=== PATIENT | male | born 1955 | race Caucasian/White ===

== ENCOUNTER → 2017-11-12 07:08 | Outpatient (CLI) | payer BC, SELFPAY ==
[2017-11-12 07:23] LABS: Basophils # 0.1 K/mm3 (0-0.2); Basophils % 1.2 % (0.1-2.0); Eosinophils # 0.3 K/mm3 (0.0-0.4); Eosinophils % 4.3 % (0.1-12.0); Hematocrit 43.6 % (42.0-52.0); Hemoglobin 14.4 g/dL (14.1-18.0); Lymphocytes # 1.6 K/mm3 (0.7-4.5); Lymphocytes % 27.4 K/mm3 (10-50); Mean Corpuscular HGB Conc 33.1 g/dL (31.8-35.4); Mean Corpuscular Hemoglobin 26.6 pg (27.0-31.2); Mean Corpuscular Volume 80.2 fl (80-94); Mean Platelet Volume 7.2 fl (7.4-10.4); Monocytes # 0.5 K/mm3 (0.1-1.0); Neutrophils # 3.4 K/mm3 (1.8-7.8); Neutrophils % 58.1 % (37.0-80.0); Platelet Count 287 K/mm3 (142-424); Red Blood Count 5.44 M/mm3 (4.60-6.20); Red Cell Distribution Width 15.4 % (11.5-17.5); White Blood Count 5.9 K/mm3 (4.8-10.8)
[2017-11-12 08:18] LABS: Hemoglobin A1C 6.6 % (0.0-7.0)
[2017-11-12 10:07] LABS: Alanine Aminotransferase 33 U/L (12-78); Albumin Level 3.9 gm/dL (3.4-5.0); Albumin/Globulin Ratio 1.2 (1.1-1.8); Alkaline Phosphatase 52 U/L (46-116); Anion Gap 17.4 mEq/L (5-15); Aspartate Amino Transferase 20 U/L (15-37); Bilirubin,Total 0.4 mg/dL (0.2-1.0); Blood Urea Nitrogen 20 mg/dL (7-18); Calcium 9.3 mg/dL (8.5-10.1); Carbon Dioxide 26 mmol/L (21.0-32.0); Chloride 104 mmol/L (98-107); Chol/HDL Ratio 2.9 (1-3.5); Cholesterol 134 mg/dL (140-200); Creatinine,Serum 0.94 mg/dL (0.70-1.30); Estimated Glomerular Filt Rate 82 ml/min (>60); GFR (African American) 99 ML/MIN (>60); Globulin 3.3 gm/dl (1.3-3.2); Glucose 126 mg/dL (74-106); HDL Cholesterol 46 mg/dL (27-67); LDL Cholesterol 45 mg/dL (0-130); Potassium 4.4 mmoL/L (3.5-5.1); Sodium 143 mmol/L (136-145); Total Protein,Serum 7.2 gm/dL (6.4-8.2); Triglycerides 213 mg/dL (30-200); VLDL Cholesterol 43 mg/dL (0-40); Valproic Acid, (Depakene) 40.5 ug/mL (50-100)
== END ==
PROVIDERS: PCP Internal Medicine Adolescent Medicine; Visit Provider Internal Medicine Adolescent Medicine
DX: I25.10 Atherosclerotic heart disease of native coronary artery without angina pectoris (principal); E11.9 Type 2 diabetes mellitus without complications; E78.5 Hyperlipidemia, unspecified; R56.9 Unspecified convulsions
CPT/HCPCS: 36415; 80053; 80061; 80164; 83036; 85025

== ENCOUNTER → 2018-11-21 07:01 | Outpatient (CLI) | payer BC, SELFPAY ==
[2018-11-21 08:02] LABS: Basophils # 0.1 K/mm3 (0-0.2); Basophils % 1.8 % (0.1-2.0); Eosinophils # 0.2 K/mm3 (0.0-0.4); Eosinophils % 3.9 % (0.1-12.0); Hematocrit 44.8 % (42.0-52.0); Hemoglobin 14.5 g/dL (14.1-18.0); Lymphocytes % 34.1 % (10-50); Mean Corpuscular HGB Conc 32.3 g/dL (31.8-35.4); Mean Corpuscular Hemoglobin 26.3 pg (27.0-31.2); Mean Corpuscular Volume 81.5 fl (80-94); Mean Platelet Volume 6.3 fl (7.4-10.4); Monocytes # 0.4 K/mm3 (0.1-1.0); Monocytes % 7.2 % (1.7-9.3); Neutrophils # 3.1 K/mm3 (1.8-7.8); Platelet Count 259 K/mm3 (142-424); Red Blood Count 5.49 M/mm3 (4.60-6.20); Red Cell Distribution Width 14.7 % (11.5-17.5); White Blood Count 5.9 K/mm3 (4.8-10.8)
[2018-11-21 08:13] LABS: Hemoglobin A1C 6.8 % (0.0-7.0)
[2018-11-21 08:24] LABS: Alanine Aminotransferase 26 U/L (12-78); Albumin Level 3.5 gm/dL (3.4-5.0); Albumin/Globulin Ratio 1.1 (1.1-1.8); Alkaline Phosphatase 55 U/L (46-116); Aspartate Amino Transferase 15 U/L (15-37); Bilirubin,Total 0.4 mg/dL (0.2-1.0); Blood Urea Nitrogen 16 mg/dL (7-18); Calcium 9.3 mg/dL (8.5-10.1); Carbon Dioxide 30 mmol/L (21.0-32.0); Chloride 102 mmol/L (98-107); Creatinine,Serum 1.05 mg/dL (0.70-1.30); Estimated Glomerular Filt Rate 72 ml/min (>60); GFR (African American) 87 ML/MIN (>60); Globulin 3.1 gm/dl (1.3-3.2); Glucose 125 mg/dL (74-106); Sodium 141 mmol/L (136-145); Total Protein,Serum 6.6 gm/dL (6.4-8.2); Valproic Acid, (Depakene) 36.6 ug/mL (50-100)
[2018-11-22 15:24] LABS: PSA, Free 0.18 ng/mL; Prostate Specific Ag 0.5 ng/mL (0.0-4.0)
== END ==
PROVIDERS: Visit Provider Internal Medicine Adolescent Medicine
DX: E11.9 Type 2 diabetes mellitus without complications (principal); E78.5 Hyperlipidemia, unspecified; R56.9 Unspecified convulsions; R33.9 Retention of urine, unspecified
CPT/HCPCS: 36415; 80053; 80164; 83036; 84153; 84154; 85025

== ENCOUNTER → 2018-12-07 06:26 | Outpatient (CLI) | payer BC, SELFPAY ==
--- NOTE | 2018-12-07 06:27 | CA_ITS ---
PROCEDURE: 2-D M-mode and color Doppler study INDICATIONS FOR THE TEST: Chest pain + COPD Heart Murmur Tobacco Smokingex Palpitations Fatigue Syncope Edema Hypertension+Diabetes Mellitus+ Rheumatic Fever SOB GARCIA Obesity Hyperlipidemia+ Family History HD Additional History cad,stents PATIENT INFORMATION HEIGHT: 72 WEIGHT:270 GENDER: Male B/P:134/92 2-D/M-MODE INTERPRETATION: 2-D MEASUREMENTS OBSERVED VALUES IN CMS Right Ventricular Dimension (RVDd) luis Interventricular Septum (Thickness)(IVsd) 0.8 Left Ventricular Internal Dimensions(LVIDd) 4.8 Left Ventricular Posterior Wall (Thickness)(LVPWd) 0.5 Aortic Root 2.9 Aortic Cusp Separation 2.1 Left Atrial Dimensions (LAD) 4.6 2D 1. Left atrium is mildly enlarged, left ventricle is normal size, concentric left ventricular hypertrophy, visually estimated ejection fraction 55% with no regional wall motion abnormality. 2. The right atrium and right ventricle are mildly enlarged with normal contractility. 3. The aortic valve is minimally thickened and fibrosed. 4. The mitral and tricuspid valve leaflets are minimally thickened. 5. The pulmonic valve is poorly visualized. 6. No significant pericardial effusion noted. DOPPLER INTERROGATION: Doppler interrogation of the aortic, mitral and tricuspid valvular presence of mild mitral and tricuspid regurgitation, tricuspid regurgitation jet velocity is inadequate for calculation of the right ventricular systolic pressure, grade 1 diastolic dysfunction seen without tissue Doppler evidence of raised left atrial pressure. CONCLUSION: 1. Mildly enlarged left atrium, normal left ventricular size mild hypertrophy, visually estimated ejection fraction 55% with no regional wall motion abnormality, grade 1 diastolic dysfunction seen without tissue Doppler evidence of raised left atrial pressure. 2. Mildly enlarged right atrium and right ventricle, contractility of the right ventricle being normal. 3. Mild mitral and tricuspid regurgitation 4. No significant pericardial effusion noted.
--- NOTE | 2018-12-07 06:27 | NM_ITS ---
History and Indications: Coronary artery disease, hypertension, diabetes, hyperlipidemia, family history, chest pain, shortness of breath and fatigue Procedure: Patient exercised on Suhas protocol 6 metastases, resting heart rate was 65 bpm resting blood pressure 117/78, with exercise maximum heart rate achieved was 1 25 bpm which is equal to 79% of the maximum predicted heart rate and a blood pressure was 164/80. Test was started due to shortness of breath and fatigue patient denied any complained of chest pain. Patient has adequate exercise capacity achieved 7mets of workload on treadmill, the blood pressure response to exercise was adequate. Electrocardiogram: Resting electrocardiogram showed sinus rhythm, with exercise there is less than 1.[address] segment depression noted from the baseline EKG. The EKG portion of the exercise Myoview is nondiagnostic as patient did not achieve the target heart rate. Cardiac stress and resting SPECT images: Cardiac stress and resting SPECT images were obtained using technetium 99 Myoview 32.6 mCi at stress and 10.4 mCi at rest. Gated SPECT further analysis of segmental wall motion and calculation of the ejection fraction also done. Cardiac stress and resting SPECT images show a fixed defect involving the inferobasal wall with reduced contractility in the gated SPECT is likely secondary to nontransmural scarring, no reversible ischemia seen. Computer derived ejection fraction is 58% with inferobasal wall moderate hypokinesis. Right ventricle is normal size and contractility. Conclusion: 1. The EKG portion of the exercise Myoview is nondiagnostic as patient did not achieve the target heart rate, patient has adequate exercise capacity achieved 7mets of workload on treadmill, the blood pressure response to exercise was adequate, there was no exercise-induced chest discomfort. 2. Scintigraphic evidence of nontransmural myocardial scarring involving the inferobasal wall without significant maximus-infarct ischemia, computer derived ejection fraction is 58% with segmental wall motion abnormality described above, right ventricle is normal size and contractility. 3. Abnormal exercise Myoview study.
== END ==
PROVIDERS: PCP Internal Medicine Adolescent Medicine; Visit Provider Internal Medicine
DX: I25.118 Atherosclerotic heart disease of native coronary artery with other forms of angina pectoris (principal); E78.2 Mixed hyperlipidemia; I10 Essential (primary) hypertension; R68.84 Jaw pain; E78.5 Hyperlipidemia, unspecified
CPT/HCPCS: 78452; 93017; 93306; A9502

== ENCOUNTER → 2019-03-08 07:02 | Outpatient (CLI) | payer BC, SELFPAY ==
[2019-03-08 07:44] LABS: Basophils # 0.1 K/mm3 (0-0.2); Basophils % 1.4 % (0.1-2.0); Eosinophils # 0.2 K/mm3 (0.0-0.4); Eosinophils % 4.8 % (0.1-12.0); Hematocrit 40.7 % (42.0-52.0); Hemoglobin 13.9 g/dL (14.1-18.0); Lymphocytes # 1.8 K/mm3 (0.7-4.5); Lymphocytes % 37.5 % (10-50); Mean Corpuscular HGB Conc 34.1 g/dL (31.8-35.4); Mean Corpuscular Volume 79.2 fl (80-94); Mean Platelet Volume 6.6 fl (7.4-10.4); Monocytes # 0.4 K/mm3 (0.1-1.0); Monocytes % 8.6 % (1.7-9.3); Neutrophils # 2.3 K/mm3 (1.8-7.8); Neutrophils % 47.6 % (37.0-80.0); Platelet Count 271 K/mm3 (142-424); Red Blood Count 5.13 M/mm3 (4.60-6.20); Red Cell Distribution Width 15.1 % (11.5-17.5); White Blood Count 4.8 K/mm3 (4.8-10.8)
[2019-03-08 11:07] LABS: Alanine Aminotransferase 26 U/L (12-78); Albumin Level 3.8 gm/dL (3.4-5.0); Albumin/Globulin Ratio 1.3 (1.1-1.8); Alkaline Phosphatase 43 U/L (46-116); Anion Gap 14.2 mEq/L (5-15); Aspartate Amino Transferase 17 U/L (15-37); Bilirubin,Total 0.6 mg/dL (0.2-1.0); Blood Urea Nitrogen 17 mg/dL (7-18); Calcium 9.3 mg/dL (8.5-10.1); Carbon Dioxide 26 mmol/L (21.0-32.0); Chloride 100 mmol/L (98-107); Chol/HDL Ratio 2.3 (1-3.5); Cholesterol 99 mg/dL (140-200); Estimated Glomerular Filt Rate 76 ml/min (>60); Free Thyroxine Index 1.7 ug/dL (5.93-13.13); GFR (African American) 92 ML/MIN (>60); Globulin 2.9 gm/dl (1.3-3.2); Glucose 93 mg/dL (74-106); HDL Cholesterol 43 mg/dL (27-67); LDL Cholesterol 29 mg/dL (0-130); Magnesium 1.8 mg/dL (1.4-2.2); Potassium 4.2 mmoL/L (3.5-5.1); Sodium 136 mmol/L (136-145); T4 (Thyroxine) 4.9 ug/dl (4.7-13.3); Thyroid Stimulating Hormone 1.42 uIU/ml (0.358-3.740); Total Protein,Serum 6.7 gm/dL (6.4-8.2); Triglycerides 133 mg/dL (30-200); Triiodothryronine (T3) Uptake 35 % (31-39); VLDL Cholesterol 27 mg/dL (0-40); Valproic Acid, (Depakene) 66.3 ug/mL (50-100)
[2019-03-09 20:50] LABS: Vitamin B12 975 pg/mL (232-1245); Vitamin D 25 Hydroxy 58.8 ng/mL (30.0-100.0)
== END ==
PROVIDERS: Visit Provider Internal Medicine Adolescent Medicine
DX: I25.10 Atherosclerotic heart disease of native coronary artery without angina pectoris (principal); E78.5 Hyperlipidemia, unspecified; R56.9 Unspecified convulsions; G60.9 Hereditary and idiopathic neuropathy, unspecified; G47.62 Sleep related leg cramps
CPT/HCPCS: 36415; 80053; 80061; 80164; 82607; 82652; 83735; 84436; 84443; 84479; 85025

== ENCOUNTER → 2019-05-08 14:51 | Outpatient (CLI) | payer BC, SELFPAY ==
[2019-05-08 15:16] LABS: Basophils # 0.1 K/mm3 (0-0.2); Eosinophils # 0.1 K/mm3 (0.0-0.4); Eosinophils % 2.3 % (0.1-12.0); Hematocrit 41.1 % (42.0-52.0); Hemoglobin 13.4 g/dL (14.1-18.0); Lymphocytes # 1.9 K/mm3 (0.7-4.5); Mean Corpuscular HGB Conc 32.7 g/dL (31.8-35.4); Mean Corpuscular Hemoglobin 27.7 pg (27.0-31.2); Mean Corpuscular Volume 84.6 fl (80-94); Mean Platelet Volume 6.8 fl (7.4-10.4); Monocytes # 0.4 K/mm3 (0.1-1.0); Monocytes % 7.4 % (1.7-9.3); Neutrophils # 3.4 K/mm3 (1.8-7.8); Neutrophils % 57.3 % (37.0-80.0); Platelet Count 266 K/mm3 (142-424); Red Blood Count 4.86 M/mm3 (4.60-6.20); Red Cell Distribution Width 14.6 % (11.5-17.5)
[2019-05-08 17:59] LABS: Uric Acid 6.9 mg/dL (2.6-7.2)
[2019-05-08 20:21] LABS: Erythrocyte Sedimentation Rate 4 mm/hr (0-20)
== END ==
PROVIDERS: Visit Provider Internal Medicine Adolescent Medicine
DX: R89.9 Unspecified abnormal finding in specimens from other organs, systems and tissues (principal)
CPT/HCPCS: 36415; 84550; 85025; 85651

== ENCOUNTER → 2019-06-29 13:03 | Outpatient (CLI) | payer BC, SELFPAY ==
--- NOTE | 2019-06-29 | XR_ITS ---
PROCEDURE: XR KNEE RT 3V CLINICAL INDICATION: Medial knee pain COMPARISON: No exams were available for comparison FINDINGS: Moderate osteoarthritic changes are present at the medial compartment and patellofemoral joint. No acute fracture or dislocation. IMPRESSION: Osteoarthritis Dictated by: Mitesh Castillo MD 06/29/2019 16:46 Electronically signed by Mitesh Castillo MD in [place] 06/29/2019 16:46
--- NOTE | 2019-06-29 | XR_ITS ---
PROCEDURE: XR KNEE LT 3V CLINICAL INDICATION: Follow-up knee replacement COMPARISON: No exams were available for comparison FINDINGS: No previous studies are available for comparison. There has been prior left hubert arthroplasty of the medial compartment with good alignment of the prosthesis. There are mild osteoarthritic changes of the patellofemoral joint. IMPRESSION: Status post medial hemiarthroplasty on the left Dictated by: Mitesh Castillo MD 06/29/2019 16:43 Electronically signed by Mitesh Castillo MD in [place] 06/29/2019 16:43
== END ==
PROVIDERS: PCP Internal Medicine Adolescent Medicine; Visit Provider Internal Medicine Adolescent Medicine
DX: M17.11 Unilateral primary osteoarthritis, right knee (principal); M17.12 Unilateral primary osteoarthritis, left knee
CPT/HCPCS: 73562

== ENCOUNTER → 2019-07-17 15:16 | Outpatient (CLI) | payer BC, SELFPAY ==
[2019-07-17 15:20] LABS: Microscopic, Urine URINE MICROSCOPIC (MICROSCOPIC)
[2019-07-17 15:33] LABS: Appearance,Urine CLEAR (Clear); Basophils # 0.1 K/mm3 (0-0.2); Basophils % 1.3 % (0.1-2.0); Bilirubin,Urine Negative (Negative); Blood, Urine Negative (Negative); Color,Urine YELLOW (Yellow); Eosinophils # 0.3 K/mm3 (0.0-0.4); Eosinophils % 3.4 % (0.1-12.0); Glucose,Urine (UA) Negative (Negative); Hematocrit 44.3 % (42.0-52.0); Hemoglobin 13.8 g/dL (14.1-18.0); Ketones,Urine Negative (Negative); Leukocyte Esterase,Urine Negative (Negative); Lymphocytes % 27.2 % (10-50); Mean Corpuscular Hemoglobin 26.2 pg (27.0-31.2); Mean Corpuscular Volume 84.6 fl (80-94); Mean Platelet Volume 6.9 fl (7.4-10.4); Monocytes # 0.6 K/mm3 (0.1-1.0); Monocytes % 7.9 % (1.7-9.3); Neutrophils # 4.4 K/mm3 (1.8-7.8); Neutrophils % 60.1 % (37.0-80.0); Nitrate,Urine Negative (Negative); PH,Urine 6.5 (5.0-8.5); Platelet Count 317 K/mm3 (142-424); Protein,Urine Negative (Negative); Red Blood Count 5.24 M/mm3 (4.60-6.20); Red Cell Distribution Width 15.4 % (11.5-17.5); Urobilinogen,Urine 0.2 EU/dl (0.2); White Blood Count 7.3 K/mm3 (4.8-10.8)
[2019-07-17 15:40] LABS: Activated Partial Thrombo Time 24.5 seconds (23.6-34.0); INR 1.06 (0.9-1.1)
[2019-07-17 16:03] LABS: Bacteria,Urine Trace /lpf; RBC,Urine Occasional #/hpf (0-3)
[2019-07-17 16:27] LABS: Hemoglobin A1C 6.1 % (0.0-7.0)
[2019-07-17 18:12] LABS: Alanine Aminotransferase 15 U/L (12-78); Albumin Level 3.8 gm/dL (3.4-5.0); Albumin/Globulin Ratio 1.3 (1.1-1.8); Alkaline Phosphatase 44 U/L (46-116); Aspartate Amino Transferase 10 U/L (15-37); Bilirubin,Total 0.4 mg/dL (0.2-1.0); Blood Urea Nitrogen 15 mg/dL (7-18); Calcium 9.2 mg/dL (8.5-10.1); Carbon Dioxide 29 mmol/L (21.0-32.0); Chloride 97 mmol/L (98-107); Creatinine,Serum 0.81 mg/dL (0.70-1.30); Estimated Glomerular Filt Rate 97 ml/min (>60); GFR (African American) 117 ML/MIN (>60); Glucose 100 mg/dL (74-106); Sodium 135 mmol/L (136-145); Total Protein,Serum 6.8 gm/dL (6.4-8.2)
[2019-07-19 17:10] LABS: Prealbumin 33 mg/dL (10-36)
== END ==
PROVIDERS: Visit Provider Internal Medicine Adolescent Medicine
DX: E11.9 Type 2 diabetes mellitus without complications (principal); Z79.84 Long term (current) use of oral hypoglycemic drugs
CPT/HCPCS: 36415; 80053; 81001; 83036; 84134; 85025; 85610; 85730

== ENCOUNTER → 2019-07-18 12:36 | Outpatient (CLI) | payer BC, SELFPAY ==
--- NOTE | 2019-07-18 12:39 | XR_ITS ---
PROCEDURE: XR CHEST 2V CLINICAL HISTORY: HTN COMPARISON: CXR CHEST(2 VIEWS-NOT PORTABLE) from 12/31/2014 CXR CHEST(2 VIEWS-NOT PORTABLE) from 07/21/2016 FINDINGS: The cardiomediastinal silhouette and pulmonary vascularity are within normal limits. There is a faint nodular opacity overlying the left lower lung zone at the 7th rib anteriorly and could be due to nipple shadow. Follow-up with nipple markers may confirm. The remaining lungs are clear. No acute bony abnormalities. IMPRESSION: No acute finding. Nodular opacity overlying the left lower lung zone which could be due to nipple shadow and may be confirmed with follow-up Dictated by: Mitesh Castillo MD 07/18/2019 18:43 Electronically signed by Mitesh Castillo MD in [place] 07/18/2019 18:43
== END ==
PROVIDERS: PCP Internal Medicine Adolescent Medicine; Visit Provider Internal Medicine Adolescent Medicine
DX: I10 Essential (primary) hypertension (principal)
CPT/HCPCS: 71046

== ENCOUNTER → 2019-12-03 07:20 | Outpatient (CLI) | payer BC, SELFPAY ==
[2019-12-03 08:37] LABS: Basophils # 0.1 K/mm3 (0-0.2); Basophils % 1.8 % (0.1-2.0); Eosinophils # 0.3 K/mm3 (0.0-0.4); Eosinophils % 6.5 % (0.1-12.0); Hematocrit 39.9 % (42.0-52.0); Hemoglobin 12.9 g/dL (14.1-18.0); Lymphocytes # 1.8 K/mm3 (0.7-4.5); Mean Corpuscular HGB Conc 32.2 g/dL (31.8-35.4); Mean Corpuscular Volume 80.8 fl (80-94); Mean Platelet Volume 7.1 fl (7.4-10.4); Monocytes # 0.5 K/mm3 (0.1-1.0); Monocytes % 9.4 % (1.7-9.3); Neutrophils # 2.2 K/mm3 (1.8-7.8); Neutrophils % 45.3 % (37.0-80.0); Platelet Count 283 K/mm3 (142-424); Red Blood Count 4.95 M/mm3 (4.60-6.20); Red Cell Distribution Width 14.1 % (11.5-17.5); White Blood Count 4.8 K/mm3 (4.8-10.8)
[2019-12-03 09:36] LABS: Chloride 98 mmol/L (98-107); Potassium 4.6 mmoL/L (3.5-5.1); Sodium 131 mmol/L (136-145)
[2019-12-03 09:38] LABS: Alanine Aminotransferase 18 U/L (12-78); Aspartate Amino Transferase 27 U/L (17-59); Blood Urea Nitrogen 16 mg/dl (9-20); Estimated Glomerular Filt Rate 98 ml/min (>60); GFR (African American) 119 ML/MIN (>60)
[2019-12-03 09:39] LABS: Albumin/Globulin Ratio 1.7 (1.1-1.8); Alkaline Phosphatase 46 U/L (38-126); Anion Gap 10.6 mEq/L (5-15); Bilirubin,Total 0.3 mg/dl (0.2-1.3); Calcium 9.8 mg/dl (8.4-10.2); Carbon Dioxide 27 mmol/L (22.0-30.0); Globulin 2.4 g/dL (1.3-3.2); Glucose 107 mg/dl (74-100); Total Protein,Serum 6.4 g/dl (6.3-8.2)
[2019-12-03 11:40] LABS: Hemoglobin A1C 6.5 % (4.0-6.0)
== END ==
PROVIDERS: Visit Provider Internal Medicine Adolescent Medicine
DX: E78.5 Hyperlipidemia, unspecified (principal); I10 Essential (primary) hypertension; E11.9 Type 2 diabetes mellitus without complications; Z79.84 Long term (current) use of oral hypoglycemic drugs
CPT/HCPCS: 36415; 80053; 83036; 85025

== ENCOUNTER → 2020-01-01 11:30 | Outpatient (CLI) | payer BC, SELFPAY ==
[2020-01-02 23:12] LABS: Vitamin B12 843 pg/mL (232-1245)
[2020-01-02 23:13] LABS: Vitamin D 25 Hydroxy 40.3 ng/mL (30.0-100.0)
== END ==
PROVIDERS: Visit Provider Nurse Practitioner Family
DX: G60.9 Hereditary and idiopathic neuropathy, unspecified (principal); G25.81 Restless legs syndrome
CPT/HCPCS: 36415; 82607; 82652

== ENCOUNTER → 2020-05-22 08:03 | Outpatient (CLI) | payer BC, SELFPAY ==
--- NOTE | 2020-05-22 | XR_ITS ---
PROCEDURE: XR CERVICAL SPINE 5V CLINICAL INDICATION: NECK PAIIN COMPARISON: No exams were available for comparison FINDINGS: There is some straightening of the normal curvature suggesting muscle spasm. C1 through C7 appear intact. There is moderate disc space narrowing at the C6-7 level. Oblique films show normal neural foramina bilaterally except for minor narrowing at the C6-7 level bilaterally. The prevertebral soft tissues are normal and the odontoid is normal. IMPRESSION: Minor degenerative disc disease C6-7 and possible mild muscle spasm Dictated by: Dr. Jose Armando Costello MD 05/22/2020 16:15 Dr. Jose Armando Costello MD in [place] 05/22/2020 16:15
--- NOTE | 2020-05-22 08:09 | XR_ITS ---
PROCEDURE: XR LUMBAR SPINE MIN 4V CLINICAL INDICATION: LUMBAGO WITH SCIATICA LT COMPARISON: No exams were available for comparison FINDINGS: There is normal curvature and alignment. There is mild disc space narrowing at the L4-5 level. There is mild anterior osteophytic spurring at the T11-12 and T12-L1 levels. There is no pars defect. There are mild hypertrophic facet changes at the L4-5 and L5-S1 levels. There is mild diffuse arteriosclerotic calcification of the abdominal aorta but there is no aneurysm. The SI joints are normal. IMPRESSION: Minor degenerate disc disease L4-5 along with mild hypertrophic facet changes lower lumbar spine Dictated by: Dr. Jose Armando Costello MD 05/22/2020 16:17 Dr. Jose Armando Costello MD in [place] 05/22/2020 16:17
== END ==
PROVIDERS: PCP Internal Medicine Adolescent Medicine; Visit Provider Internal Medicine Adolescent Medicine
DX: M54.42 Lumbago with sciatica, left side (principal); M54.2 Cervicalgia
CPT/HCPCS: 72050; 72110

== ENCOUNTER 2020-06-03 15:46 | Outpatient (RCR) | payer BC, SELFPAY ==
--- NOTE | 2020-06-03 16:54 | HMH.PTOPEV ---
PT Outpatient Evaluation Rehab PT Outpatient Evaluation Start: 06/03/20 16:01 Freq: Status: Active Protocol: Document 06/03/20 16:05 DARLINECHAD (Rec: 06/03/20 16:54 JOESPH [id number]) Electronically Signed By Don Montero PT 06/03/20 16:05 Outpatient Therapy Subjective History Subjective History This is the initial Physical Therapy evaluation for Dani Garland. Pt reports to PT for c/o Cervical pain, RUE parestehsia and L side LBP. Pt reports he has had LBP for decades but his neck pain began ~ 4 months ago with an insidious onset. Pt reports his neck pain is constant w/ intermittant paresthesia into R anterior chest and posterior shoulder/upper trapezius area . Chief Complaint Pain,Paresthesia Symptom Type Ache,Throb Symptoms Relieved By Rest/Positioning Prior Functional Limitations None Current Functional Limitations Desk Work/Reading,Sleeping, Recreation Activity Symptom Description Constant but Variable Level of pain today (0-10) 4 Pain scale - at its best (0-10) 2 Pain scale - at its worst (0-10) 5 Cervical Eval Palpation Cervical Muscles R Cervical Paraspinal,L Cervical Paraspinal,R Upper Trapezius,L Upper Trapezius Cervical/Thoracic Palpation Findings Tenderness,Trigger Point, Muscle Guarding Posture Head/C-Spine Posture Sitting Position C-Spine Flattened AROM Cervical Spine Extension Active Range of 20 Motion (degrees) Cervical Spine Flexion Active Range of 55 Motion (degrees) Cervical Spine Right Lateral Flexion 30 Active Range of Motion (degrees) Cervical Spine Left Lateral Flexion 35 Active Range of Motion (degrees) Cervical Spine Right Rotation Active 50 Range of Motion (degrees) Cervical Spine Left Rotation Active 70 Range of Motion (degrees) MMT Bilateral Deltoid (C5) 5 Normal Biceps Brachii Strength Grade 5 Normal Wrist Extension Strength Grade 5 Normal Triceps Brachii Strength Grade 5 Normal Wrist Flexion Strength Grade 5 Normal DTR Rt Biceps 0 Lt Biceps 0 Rt Brachioradialis 1+ Lt Brachioradialis 1+ Special Test C-Spine Foraminal Compression (Spurling) Negative Left,Negative Right Test
== END 2020-06-03 16:50 | disposition home or self-care (01) ==
LOC: PT 15:46
PROVIDERS: PCP Internal Medicine Adolescent Medicine; Visit Provider Internal Medicine Adolescent Medicine
DX: M54.42 Lumbago with sciatica, left side (principal)
CPT/HCPCS: 97163

== ENCOUNTER → 2020-10-28 17:01 | Outpatient (CLI) | payer BC, SELFPAY ==
[2020-10-28 18:35] LABS: Alanine Aminotransferase 28 U/L (12-78); Albumin Level 4.8 g/dl (3.5-5.0); Albumin/Globulin Ratio 1.6 (1.1-1.8); Alkaline Phosphatase 59 U/L (38-126); Anion Gap 15.4 mEq/L (5-15); Aspartate Amino Transferase 35 U/L (17-59); Bilirubin,Total 0.6 mg/dl (0.2-1.3); Blood Urea Nitrogen 21 mg/dl (9-20); Calcium 10.5 mg/dl (8.4-10.2); Carbon Dioxide 29 mmol/L (22.0-30.0); Chloride 97 mmol/L (98-107); Chol/HDL Ratio 2.2 (1-3.5); Cholesterol 148 mg/dl (140-200); Estimated Glomerular Filt Rate 75 ml/min (>60); GFR (African American) 91 ML/MIN (>60); Glucose 125 mg/dl (74-100); HDL Cholesterol 67 mg/dl (40-60); Potassium 4.4 mmoL/L (3.5-5.1); Sodium 137 mmol/L (136-145); Total Protein,Serum 7.8 g/dl (6.3-8.2); Triglycerides 205 mg/dl (30-150); VLDL Cholesterol 41 mg/dL (0-40)
[2020-10-28 18:45] LABS: Direct LDL Cholesterol 58.43 mg/dL (100-129)
[2020-10-28 18:46] LABS: Hemoglobin A1C 6.9 % (4.0-6.0)
[2020-10-28 18:54] LABS: Troponin I < 0.01 ng/ml (0.00-0.034)
[2020-10-28 19:40] LABS: Basophils # 0.1 K/mm3 (0-0.2); Basophils % 1.1 % (0.1-2.0); Eosinophils # 0.2 K/mm3 (0.0-0.4); Eosinophils % 2.2 % (0.1-12.0); Hematocrit 42.8 % (42.0-52.0); Hemoglobin 13.8 g/dL (14.1-18.0); Lymphocytes % 27.5 % (10-50); Mean Corpuscular HGB Conc 32.2 g/dL (31.8-35.4); Mean Corpuscular Hemoglobin 26.1 pg (27.0-31.2); Mean Corpuscular Volume 81.3 fl (80-94); Mean Platelet Volume 6.9 fl (7.4-10.4); Monocytes # 0.6 K/mm3 (0.1-1.0); Monocytes % 8.9 % (1.7-9.3); Neutrophils # 4.3 K/mm3 (1.8-7.8); Neutrophils % 60.3 % (37.0-80.0); Platelet Count 308 K/mm3 (142-424); Red Blood Count 5.27 M/mm3 (4.60-6.20); Red Cell Distribution Width 15.4 % (11.5-17.5); White Blood Count 7.2 K/mm3 (4.8-10.8)
== END ==
PROVIDERS: Visit Provider Internal Medicine Adolescent Medicine
DX: I10 Essential (primary) hypertension (principal); I20.8 Other forms of angina pectoris; E11.9 Type 2 diabetes mellitus without complications; Z79.84 Long term (current) use of oral hypoglycemic drugs
CPT/HCPCS: 36415; 80053; 80061; 83036; 84484; 85025

== ENCOUNTER → 2021-01-08 07:04 | Outpatient (CLI) | payer BC, SELFPAY ==
[2021-01-08 07:36] LABS: Basophils # 0.1 K/mm3 (0-0.2); Basophils % 1.1 % (0.1-2.0); Eosinophils # 0.1 K/mm3 (0.0-0.4); Eosinophils % 1.9 % (0.1-12.0); Hematocrit 41.2 % (42.0-52.0); Hemoglobin 13.6 g/dL (14.1-18.0); Lymphocytes # 2.2 K/mm3 (0.7-4.5); Lymphocytes % 34.3 % (10-50); Mean Corpuscular HGB Conc 33.1 g/dL (31.8-35.4); Mean Corpuscular Hemoglobin 26.9 pg (27.0-31.2); Mean Corpuscular Volume 81.5 fl (80-94); Mean Platelet Volume 7.2 fl (7.4-10.4); Monocytes # 0.4 K/mm3 (0.1-1.0); Monocytes % 6.3 % (1.7-9.3); Neutrophils # 3.6 K/mm3 (1.8-7.8); Neutrophils % 56.4 % (37.0-80.0); Platelet Count 231 K/mm3 (142-424); Red Blood Count 5.06 M/mm3 (4.60-6.20); Red Cell Distribution Width 15.6 % (11.5-17.5); White Blood Count 6.4 K/mm3 (4.8-10.8)
[2021-01-08 07:50] LABS: Hemoglobin A1C 6.9 % (4.0-6.0)
[2021-01-08 08:00] LABS: Alanine Aminotransferase 27 U/L (12-78); Albumin Level 4.3 g/dl (3.5-5.0); Albumin/Globulin Ratio 1.8 (1.1-1.8); Alkaline Phosphatase 53 U/L (38-126); Anion Gap 16.1 mEq/L (5-15); Aspartate Amino Transferase 35 U/L (17-59); Bilirubin,Total 0.5 mg/dl (0.2-1.3); Blood Urea Nitrogen 25 mg/dl (9-20); Calcium 9.6 mg/dl (8.4-10.2); Carbon Dioxide 24 mmol/L (22.0-30.0); Chloride 104 mmol/L (98-107); Estimated Glomerular Filt Rate 98 ml/min (>60); GFR (African American) 118 ML/MIN (>60); Globulin 2.4 g/dL (1.3-3.2); Glucose 108 mg/dl (74-100); Magnesium 1.6 mg/dl (1.6-2.3); Potassium 4.1 mmoL/L (3.5-5.1); Sodium 140 mmol/L (136-145); Total Protein,Serum 6.7 g/dl (6.3-8.2)
[2021-01-08 08:05] LABS: Valproic Acid, (Depakene) 52.5 ug/ml (50-100)
[2021-01-08 08:17] LABS: 25-OH Vitamin D, Total 39.3 ng/mL (30-100); Free Thyroxine Index 2.4 ug/dL (5.93-13.13); T4 (Thyroxine) 5.8 ug/dl (5.53-11.0); Triiodothryronine (T3) Uptake 41 % (23.5-40.5)
[2021-01-08 08:31] LABS: Thyroid Stimulating Hormone 1.29 uIU/mL (0.465-4.68)
[2021-01-08 08:38] LABS: Ferritin 16.3 ng/ml (17.9-464)
[2021-01-08 08:49] LABS: Vitamin B12 745 pg/mL (239-931)
== END ==
PROVIDERS: Visit Provider Internal Medicine Adolescent Medicine
DX: I25.10 Atherosclerotic heart disease of native coronary artery without angina pectoris (principal); E11.9 Type 2 diabetes mellitus without complications; G60.9 Hereditary and idiopathic neuropathy, unspecified; G47.62 Sleep related leg cramps; R56.9 Unspecified convulsions
CPT/HCPCS: 36415; 80053; 80164; 82306; 82533; 82607; 82728; 83036; 83735; 84436; 84443; 84479; 85025

== ENCOUNTER 2021-12-21 12:30 | Observation (INO) | payer BC, SELFPAY ==
[2021-12-21] VITALS (21 sets, daily range): BP systolic 130–169; BP diastolic 75–99; PULSE 67–90; RESP 17–20; TEMP 36.4–36.6; O2SAT 91–99; BMI 29.8; BMI 38.3
--- NOTE | 2021-12-21 12:30 | PC.NURSE ---
ED MD at
--- NOTE | 2021-12-21 12:34 | IR_ITS ---
APPROVED REPORT Patient Location: Outpatient [facility] [employer] [facility]: YONATAN Philippe RT (R) PROCEDURES Left heart catheterization Left ventriculogram Selective coronary angiogram Drug-eluting stent deployment to the proximal dominant right coronary INDICATION Acute coronary syndrome, Unstable angina, Coronary artery disease Informed consent was obtained prior to the procedure. COMPLICATIONS None Estimated Blood Loss: Less than 10 ML TECHNIQUE One percent lidocaine used to anesthetize the right anterior aspect of the wrist. The right radial artery was accessed via the Seldinger technique. A 6 Lebanese sheath was placed in the right radial artery. 2.5 mg of verapamil, 800 mcg of nitroglycerin, 1mg Lidocaine and 5000 U Heparin were given through the arterial sheath. The papa catheter was also used to perform left heart catheterization, left ventriculogram and selective coronary angiogram. At the end the diagnostic angiogram therapeutic heparin was administered giving a therapeutic ACT and the guide catheter was left in the right coronary artery followed by a Choice PT extra-support wire. A 5 mm x 22 mm resolute Lavon stent was deployed at 14 fatoumata reducing the severe stenosis to 0%. BRODERICK-3 flow was present before and after the procedure. At the end of the procedure the apparatus was removed the sheath was removed good hemostasis was achieved using TR banding patient was transferred to the postop holding area in stable condition ANGIOGRAPHIC RESULTS The left main artery Normal The left anterior descending artery Has a stent in the proximal to mid segment which is widely patent free of in-stent restenosis with excellent proximal distal transitioning. The remaining vessel has mild 10% atheromatous plaque. The circumflex artery Is a nondominant vessel with mild 10 to 20% atheromatous plaque. A large ramus intermedius has 10 to 20% diffuse stenoses The right coronary artery Is a massively large dominant vessel and has diffuse moderate vascular ectasia. In the proximal segment there is a concentric 70 to 80% stenosis. The caliber of this vessel is equal in size to the RV marginal branch. Comparatively this vessel is stenosed at least 70 and possibly 80% the remaining right coronary artery has moderate vascular ectasia with no stenosis greater than 20% The UREÑA ventriculogram reveals Hyperdynamic 75% The left ventricular end-diastolic pressure 40 mmHg IMPRESSION Patent stent in the LAD as described above Severe disease in the proximal massively large dominant right coronary artery with successful stenting reducing the stenosis to 0% Hyperdynamic ventricle with severely elevated LVEDP PLAN 1. Brilinta 90 twice daily plus aspirin 81 mg daily 2. LDL less than 55 to be achieved with high intensity statin 3. Patient has moderate to severe diastolic dysfunction. He requires more aggressive negative inotropes such as verapamil. Severe diastolic dysfunction should be treated with low-dose diuretics and better control of hypertension 4. Evaluate for sleep apnea 5. Cardiac rehabilitation 6. Avoidance of tobacco products Electronically signed by : Shaan Powers MD 12/21/2021 14:03:04
--- NOTE | 2021-12-21 12:45 | PC.NURSE ---
IV access obtained, pt placed in gown with warm blanket, fluids started on KVO. clothing placed in pt bag and left on bed with pt for transfer to laborer aquatic life
--- NOTE | 2021-12-21 12:57 | PC.NURSE ---
Dr. Hernandez paged and has called back to ED MD
--- NOTE | 2021-12-21 13:00 | PC.NURSE ---
Die Cast Engineer down to get patient
--- NOTE | 2021-12-21 13:01 | HMH.EDGENADL ---
ED Disposition Clinical Impression: Chest pain Disposition: Admitted As Inpatient Condition on Discharge: Good - Critical Care Critical Care Time: No Attestation: On 12/21/21, the high probability of a clinically significant, sudden or life threatening deterioration of the following system(s) required my full and direct attention, intervention and personal management. The time I documented below is in addition to time spent performing reported procedures but includes the following listed in this critical care notation. Medical Decision Making - Medical Records Medical records reviewed: Yes: I reviewed the patient's medical records. - Tavares Inquiry Pt receiving controlled substance: No Vital Signs: 12/21/21 12:30 Temperature 97.6 F Temperature Source Oral Pulse Rate [Left Radial] 78 Respiratory Rate 18 Blood Pressure [Right Arm] 154/90 H Blood Pressure Mean [Right Arm] 111 Blood Pressure Source [Right Arm] Automatic Cuff Blood Pressure Position [Right Arm] Sitting 02 Sat by Pulse Oximetry 97 Oxygen Delivery Method Room Air Medical Decision Narrative: Patient is a 66-year-old male presents the ED today with chest pain, patient is well-appearing on his evaluation no acute distress, vital signs are normal and stable, cardiology aware of patient's arrival, and planning a catheterization, no evidence of ST elevation or STEMI on EKG, patient chest pain has improved, were originally planning to give nitro but have deferred at this time, blood pressure and other vital signs within normal limits and stable, we have ordered CBC CMP coagulation studies troponin per cardiology, and patient taken to [facility] for further evaluation monitoring before labs have resulted, I have spoken with Dr. Tenorio patient's primary care provider about admission. General Adult HPI - General Chief complaint: Chest Pain Stated complaint: Chest Pain Time Seen by Provider: 12/21/21 12:30 Mode of Arrival: Ambulatory Limitations: No Limitations Description of Symptoms (Recalled from ER Triage Doc. by RN): c/o chest pain this morning with no relief. - History of Present Illness HPI narrative: Patient is a 66-year-old male presents the ED today for chest pain, patient describes central pressure-like chest pain which has been worse over the last 24 hours, states that he attempted to take a nitro this morning as it really got bad 8 this morning, states that this was an old nitro did not help at all, states that current his symptoms have improved, states that he has been otherwise well in the last couple of days, recently had a nerve stimulator placed in his back for chronic back pain, and states that his operation went well. Patient denies shortness of breath, lower extremity swelling, states that he has had stents in the past, and takes aspirin at this point. Patient states he has been not having any nausea or vomiting, but feels a little bit uneasy today. - Related Data Home Medications Medication Instructions Recorded Confirmed meloxicam 15 mg tablet 15 mg PO DAILY 11/22/18 12/21/21 metformin 1,000 mg tablet 1,000 mg PO BID 11/22/18 12/21/21 omeprazole 40 mg capsule,delayed 40 mg PO DAILY 11/22/18 12/21/21 release trazodone 50 mg tablet 50 mg PO QHS tab 11/22/18 12/21/21 ropinirole 1 mg tablet 1 mg PO BID tab 07/03/19 12/21/21 atorvastatin 40 mg tablet 40 mg PO QHS tab 03/06/20 12/21/21 divalproex 500 mg tablet,extended 500 mg PO BID tab 03/20/21 12/21/21 release 24 hr gabapentin 100 mg capsule 100 mg PO DIRECTED cap 03/20/21 12/21/21 lisinopril 20 mg tablet 10 mg PO DAILY tab 03/20/21 12/21/21 carvedilol 25 mg tablet 37.5 mg PO BID tab 12/21/21 12/21/21 Previous Rx's Medication Instructions Recorded aspirin 81 mg tablet,delayed 81 mg PO DAILY #90 tab 12/21/21 release hydrochlorothiazide 25 mg tablet 25 mg PO DAILY #90 tab 12/21/21 nitroglycerin 0.4 mg sublingual 0.4 mg SUBLINGUAL Q5-15M PRN #30 12/21/21 tablet
[2021-12-21 13:19] LABS: Basophils # 0.1 K/mm3 (0-0.2); Hematocrit 41.4 % (42.0-52.0); Mean Platelet Volume 7.3 fl (7.4-10.4); Red Cell Distribution Width 15.7 % (11.5-17.5)
[2021-12-21 13:20] LABS: Chloride 97 mmol/L (98-107); Potassium 3.9 mmoL/L (3.5-5.1); Sodium 136 mmol/L (136-145)
[2021-12-21 13:23] LABS: Anion Gap 14.9 mEq/L (5-15); Blood Urea Nitrogen 17 mg/dl (9-20); Calcium 8.9 mg/dl (8.4-10.2); Carbon Dioxide 28 mmol/L (22.0-30.0); Creatinine Clearance Estimated 105 mL/min (50-200); Estimated Glomerular Filt Rate 97 ml/min (>60); GFR (African American) 118 ML/MIN (>60); Glucose 97 mg/dl (74-100)
[2021-12-21 13:26] LABS: MANUAL DIFFERENTIAL MANUAL DIFFERENTIAL (MANUAL DIFF)
[2021-12-21 13:28] LABS: Coronavirus 19, PCR Not Detected (NotDetected); Influenza A, PCR Not Detected (NotDetected); Influenza B, PCR Not Detected (NotDetected)
--- NOTE | 2021-12-21 14:07 | HMH.PHAVTE ---
[facility] Pharmacy VTE Monitoring - Patient Demographics Admission date: 12/21/21 Report Date: 12/21/21 Time: 14:07 Allergies/Adverse Reactions: Patient Allergies No Known Allergies Allergy (Verified 12/21/21 12:01) Height: 1.83 m Weight: 99.79 kg Patient Problems: Current Active Problems Chest pain (Acute) - VTE Risk Labs: VTE Related Lab Results Hgb 13.1 g/dL (14.1-18.0) L 12/21/21 12:45 Hct 41.4 % (42.0-52.0) L 12/21/21 12:45 Plt Count 451 K/mm3 (142-424) H 12/21/21 12:45 BUN 17 mg/dl (9-20) 12/21/21 12:45 Creatinine 0.80 mg/dl (0.66-1.25) 12/21/21 12:45 Estimated Creat Clear 105 mL/min (50-200) 12/21/21 12:45 - Prophylaxis VTE Prophylaxis Ordered?: Yes Types of VTE Prophylaxis: TEDS Knee High Location of Applied Device: Bilateral Lower Extremeties
[2021-12-21 14:42] LABS: CATHL Activated Clotting Time 347 SEC (74-125)
--- NOTE | 2021-12-21 14:49 | HMH.PHAINT ---
home medicaiton list verified using list from outpatient pharmacy and cardiology office
[2021-12-21 14:58] LABS: Hemoglobin 13.2 g/dL (14.1-18.0); Mean Corpuscular Volume 78.7 fl (80-94); Red Blood Count 5.25 M/mm3 (4.60-6.20); White Blood Count 7.8 K/mm3 (4.8-10.8)
[2021-12-21 14:59] LABS: Basophils % 1.1 % (0.1-2.0); Eosinophils # 0.2 K/mm3 (0.0-0.4); Eosinophils % 2.3 % (0.1-12.0); Lymphocytes # 1.6 K/mm3 (0.7-4.5); Lymphocytes % 20.8 % (10-50); Mean Corpuscular Hemoglobin 25.2 pg (27.0-31.2); Monocytes # 0.6 K/mm3 (0.1-1.0); Monocytes % 7.4 % (1.7-9.3); Neutrophils # 5.4 K/mm3 (1.8-7.8); Neutrophils % 68.4 % (37.0-80.0); Platelet Count 453 K/mm3 (142-424)
[2021-12-21 15:11] LABS: Eosinophils % 4 % (0-3); Lymphocytes % 16 % (10-50); Monocytes % 5 % (2-9); Neutrophils % 75 % (42-76); Platelet Estimate Slight Increase; Total Cells Counted 100
[2021-12-21 15:12] LABS: Hypochromasia 1+
--- NOTE | 2021-12-21 15:43 | PC.NURSE ---
Finger stick checked and pt 66, asymptomatic, OJ given
--- NOTE | 2021-12-21 17:49 | HMH.HP ---
*Admission Date: 12/21/21 *Chief complaint: Chest pain/unstable angina *History of present illness: Patient is a 66-year-old male presents the ED today for chest pain, patient describes central pressure-like chest pain which has been worse over the last 24 hours, states that he attempted to take a nitro this morning as it really got bad 8 this morning, states that this was an old nitro did not help at all, states that current his symptoms have improved, states that he has been otherwise well in the last couple of days, recently had a nerve stimulator placed in his back for chronic back pain, and states that his operation went well. Patient denies shortness of breath, lower extremity swelling, states that he has had stents in the past, and takes aspirin at this point. Patient states he has been not having any nausea or vomiting, but feels a little bit uneasy today. Patient went to the cardiology office, given his unstable angina was referred to emergency department. Evaluated emergency department. Given symptom complex was taken to [facility]. Catheterization was accomplished. Cath notes pasted below: ANGIOGRAPHIC RESULTS The left main artery Normal The left anterior descending artery Has a stent in the proximal to mid segment which is widely patent free of in-stent restenosis with excellent proximal distal transitioning. The remaining vessel has mild 10% atheromatous plaque. The circumflex artery Is a nondominant vessel with mild 10 to 20% atheromatous plaque. A large ramus intermedius has 10 to 20% diffuse stenoses The right coronary artery Is a massively large dominant vessel and has diffuse moderate vascular ectasia. In the proximal segment there is a concentric 70 to 80% stenosis. The caliber of this vessel is equal in size to the RV marginal branch. Comparatively this vessel is stenosed at least 70 and possibly 80% the remaining right coronary artery has moderate vascular ectasia with no stenosis greater than 20% The UREÑA ventriculogram reveals Hyperdynamic 75% The left ventricular end-diastolic pressure 40 mmHg IMPRESSION Patent stent in the LAD as described above Severe disease in the proximal massively large dominant right coronary artery with successful stenting reducing the stenosis to 0% Hyperdynamic ventricle with severely elevated LVEDP PLAN 1. Brilinta 90 twice daily plus aspirin 81 mg daily 2. LDL less than 55 to be achieved with high intensity statin 3. Patient has moderate to severe diastolic dysfunction. He requires more aggressive negative inotropes such as verapamil. Severe diastolic dysfunction should be treated with low-dose diuretics and better control of hypertension 4. Evaluate for sleep apnea 5. Cardiac rehabilitation 6. Avoidance of tobacco products [facility] History I have reviewed the patient's past medical history: Yes Medical History: Reports:: Coronary Artery Disease, Diabetes Mellitus Type 2, Hyperlipidemia, Hypertension Denies:: Internal Pacemaker, Seizures *Have you ever received a pneumonia vaccine?: No *Have you received a flu vaccine this season?: No Other Medical History: Reports: Arthritis Other Surgeries: Yes: Bariatric Surgery, Cardiac Catheterization, Coronary Stent, Other (wrist sx). No: Pacemaker - *Social History Smoking Status: Former smoker Tobacco Type: cigarettes # Packs/Day (cigarettes): 1 #Yrs smoked (if former smoker): 25 Alcohol Intake: never Alcohol Intake Frequency:: holidays/special occasions only Substance Use Type: denies use *Occupational Status:: employed Household Members: spouse *Travel in the last 8 weeks: None Family Hx:: Stroke, Hypertension Review of Systems - Review of Systems Review of systems:: pertinent systems reviewed and negative unless documented below Meds Home Medications Medication Instructions Recorded Confirmed Type meloxicam 15 mg tablet 15 mg PO DAILY 11/22/18 12/21/21 History metformin 1,000 mg tablet 1,000 mg PO BID
[2021-12-22] VITALS: BP 161/88; PULSE 78; PULSE 80; RESP 17; TEMP 36.6; O2SAT 97
[2021-12-22 04:00] VITALS: BP 126/84; PULSE 90; PULSE 91; RESP 18; TEMP 36.6; O2SAT 96
[2021-12-22 05:34] VITALS: BMI 37.3
--- NOTE | 2021-12-22 06:49 | HMH.DCSUM ---
General - General Admission date:: 12/21/21 Discharge date: 12/22/21 HPI HPI: Patient is a 66-year-old male presents the ED today for chest pain, patient describes central pressure-like chest pain which has been worse over the last 24 hours, states that he attempted to take a nitro this morning as it really got bad 8 this morning, states that this was an old nitro did not help at all, states that current his symptoms have improved, states that he has been otherwise well in the last couple of days, recently had a nerve stimulator placed in his back for chronic back pain, and states that his operation went well. Patient denies shortness of breath, lower extremity swelling, states that he has had stents in the past, and takes aspirin at this point. Patient states he has been not having any nausea or vomiting, but feels a little bit uneasy today. Patient went to the cardiology office, given his unstable angina was referred to emergency department. Evaluated emergency department. Given symptom complex was taken to [facility]. Catheterization was accomplished. Cath notes pasted below: ANGIOGRAPHIC RESULTS The left main artery Normal The left anterior descending artery Has a stent in the proximal to mid segment which is widely patent free of in-stent restenosis with excellent proximal distal transitioning. The remaining vessel has mild 10% atheromatous plaque. The circumflex artery Is a nondominant vessel with mild 10 to 20% atheromatous plaque. A large ramus intermedius has 10 to 20% diffuse stenoses The right coronary artery Is a massively large dominant vessel and has diffuse moderate vascular ectasia. In the proximal segment there is a concentric 70 to 80% stenosis. The caliber of this vessel is equal in size to the RV marginal branch. Comparatively this vessel is stenosed at least 70 and possibly 80% the remaining right coronary artery has moderate vascular ectasia with no stenosis greater than 20% The UREÑA ventriculogram reveals Hyperdynamic 75% The left ventricular end-diastolic pressure 40 mmHg IMPRESSION Patent stent in the LAD as described above Severe disease in the proximal massively large dominant right coronary artery with successful stenting reducing the stenosis to 0% Hyperdynamic ventricle with severely elevated LVEDP PLAN 1. Brilinta 90 twice daily plus aspirin 81 mg daily 2. LDL less than 55 to be achieved with high intensity statin 3. Patient has moderate to severe diastolic dysfunction. He requires more aggressive negative inotropes such as verapamil. Severe diastolic dysfunction should be treated with low-dose diuretics and better control of hypertension 4. Evaluate for sleep apnea 5. Cardiac rehabilitation 6. Avoidance of tobacco products Hospital Course Hospital Course: Initially presented to the ER after going to cardiology office. Work-up in the ER for unstable angina, taken to the [facility] for intervention. RCA stent placed due to flow-limiting lesion. Responded well to treatment with no further pain. Transition to verapamil for improved blood pressure control. Patient asymptomatic this morning. Diabetes, cholesterol, chronic conditions managed with home treatment during hospitalization. Medically stable for discharge home. Plan to continue goal-directed therapy with DAPT, verapamil, ARB, and statin. Follow-up with cardiology in a week. Follow-up with our office in 2 weeks. Examined on day of discharge. Counseled on changes to medications and possible side effects. Objective Vital signs: Temp Pulse Resp BP Pulse Ox 98 F 91 H 18 126/84 96 12/22/21 04:00 12/22/21 04:00 12/22/21 04:00 12/22/21 04:00 12/22/21 04:00 Narrative: - Constitutional no acute distress, class 2 obesity - *Routine HEENT Exam Head: Present: normocephalic Eye: Present: EOMI, PERRL ENT: Present: mucous membranes moist - *Routine Neck Exam Present: supple. Absen
--- NOTE | 2021-12-22 07:37 | HMH.PNCARD ---
Subjective Date: 12/22/21 Time: 07:37 Principal diagnosis: Unstable angina Interval history: 66-year-old white male with known history of coronary artery disease and prior coronary stenting, diabetes mellitus, hypertension and hyperlipidemia was seen in the office yesterday for crescendo pattern of angina. Patient was admitted through the ER and underwent cardiac catheterization with subsequent stenting of a massively large right coronary artery. Patient denies any chest pain or pressure overnight. He is anticipating going home today. Due to his diastolic dysfunction with hyperdynamic EF, verapamil was added to his home medication regimen. Exam Vital signs and Labs for Last 24 Hours: Temp Pulse Resp BP Pulse Ox 98 F 91 H 18 126/84 96 12/22/21 04:00 12/22/21 04:00 12/22/21 04:00 12/22/21 04:00 12/22/21 04:00 Laboratory Results - last 24 hr 12/21/21 12:45: WBC 7.8, RBC 5.25, Hgb 13.2 L, Hct 41.4 L, MCV 78.7 L, MCH 25.2 L, MCHC 32.0, RDW 15.7, Plt Count 453 H, MPV 7.3 L, Neut % (Auto) 68.4, Lymph % (Auto) 20.8, [place] % (Auto) 7.4, Eos % (Auto) 2.3, Baso % (Auto) 1.1, Neut # (Auto) 5.4, Lymph # (Auto) 1.6, [place] # (Auto) 0.6, Eos # (Auto) 0.2, Baso # (Auto) 0.1, Total Counted 100, Neutrophils % (Manual) 75, Lymphocytes % (Manual) 16, Monocytes % (Manual) 5, Eosinophils % (Manual) 4 H, Platelet Estimate Slight increase, RBC Morphology Not Reportable, Hypochromasia 1+ 12/21/21 12:45: Sodium 136, Potassium 3.9, Chloride 97 L, Carbon Dioxide 28, Anion Gap 14.9, BUN 17, Creatinine 0.80, Estimated Creat Clear 105, Estimated GFR 97, Est GFR ( Amer) 118, Glucose 97, Calcium 8.9 12/21/21 13:09: SARS-CoV-2 (PCR) Not detected, Influenza A Untype (PCR) Not detected, Influenza Type B (PCR) Not detected 12/21/21 13:47: Activated Clotting Time 347 H* I & O for Last 24 hours: Intake & Output 12/19/21 12/20/21 12/21/21 12/22/21 11:59 11:59 11:59 11:59 Intake Total 240 / 240 Output Total 1450 / 1450 Balance -1210 / -1210 Weight 260 lb 12.8 oz - Constitutional no acute distress - *Routine HEENT Exam Head: Present: normocephalic Eye: Present: EOMI, PERRL ENT: Present: mucous membranes moist - *Routine Neck Exam Present: supple. Absent: lymphadenopathy - *Routine Respiratory Exam Present: CTA bilaterally - *Routine Cardiovascular Exam Present: RRR - *Routine Abdominal Exam Present: soft, normoactive bowel sounds. Absent: tenderness - *Routine Extremities Exam Absent: cyanosis, clubbing, edema - *Routine Skin Exam Present: warm. Absent: rash - *Routine Neurological Exam Present: alert, oriented X3 Progress Note: A&P (1) Abnormal EKG Status: Acute (2) Crescendo angina Status: Acute (3) Diastolic dysfunction Status: Acute Assessment and Plan for All Diagnoses:: 1. Unstable angina pectoris/crescendo angina, status post RCA stenting. 2. Diabetes mellitus, per Dr. Lane 3. Hypertension with diastolic dysfunction, addition of verapamil made. 4. Hyperlipidemia, continue statin therapy Okay for discharge from cardiology standpoint Resume all home medications with the addition of verapamil 180 mg daily and Brilinta 90 mg twice daily. Follow-up in our office in 1 week.
[2021-12-22 08:00] VITALS: BP 144/80; PULSE 91; RESP 18; TEMP 36.7; O2SAT 95
[2021-12-22 08:50] LABS: Hemoglobin A1C 7.4 % (4.0-6.0)
--- NOTE | 2021-12-22 08:54 | HMH.PHACLD ---
Dani Garland JR has received discharge medication counseling on the following medications: -ASPIRIN -BRILINTA -ATORVASTATIN -CARVEDILOL -LISINOPRIL
--- NOTE | 2021-12-23 12:49 | CARE MANAGER ---
Contacted patient regarding follow up from hospital discharge. He states he does have the Brilinta, but Wale had to order the other medication and will call him when it comes in. He states he is tired today. The site from the heart cath doesn't show any bleeding or signs of infection. He is aware of his follow up doctor appointments. Denies any questions or concerns. CHAKA Reis
== END 2021-12-22 09:25 | disposition home or self-care (01) ==
LOC: ER 12:57 → CATHLAB 12:59 → 2ND 13:08
PROVIDERS: Internal Medicine; Physician Assistant; Admitting Provider Internal Medicine Adolescent Medicine; Emergency Provider Student in an Organized Health Care Education/Training Program; Visit Provider Internal Medicine Adolescent Medicine
DX: E11.8 Type 2 diabetes mellitus with unspecified complications (principal); E78.2 Mixed hyperlipidemia; I10 Essential (primary) hypertension; I25.110 Atherosclerotic heart disease of native coronary artery with unstable angina pectoris; R94.31 Abnormal electrocardiogram [ECG] [EKG]; Z79.84 Long term (current) use of oral hypoglycemic drugs; Z20.822 Contact with and (suspected) exposure to COVID-19
CPT/HCPCS: 80048; 83036; 85007; 85025; 85347; 92928; 93458; 99152; 99285; C1725; C1760; C1769; C1876; C9600; C9803; G0378; J1644; Q9967; U0003; U0005

== ENCOUNTER → 2022-06-21 15:49 | Outpatient (CLI) | payer BC, SELFPAY ==
--- NOTE | 2022-06-21 15:53 | XR_ITS ---
FINAL REPORT CLINICAL HISTORY: NECK PAIN X 1 week FINDINGS: CERVICAL SPINE Five views were obtained. There is no acute fracture. There is no malalignment. There is loss of cervical lordosis. There is mild anterior osteophyte formation at C5-6 and C6-7. There is mild vascular calcification at the carotid bifurcations. The neural foramen are adequately patent. IMPRESSION: Mild anterior osteophyte formation at C5-6 and C6-7. Reviewed, Interpreted and Dictated by Jamin Da Silva MD Transcribed by Maximiliano Pelayo Authenticated and [facility]
== END ==
PROVIDERS: PCP Internal Medicine Adolescent Medicine; Visit Provider Internal Medicine Adolescent Medicine
DX: M54.2 Cervicalgia (principal)
CPT/HCPCS: 72050

== ENCOUNTER → 2022-07-08 16:28 | Outpatient (CLI) | payer BC, SELFPAY | PROVIDERS: PCP Internal Medicine Adolescent Medicine; Visit Provider Internal Medicine Adolescent Medicine | DX: M54.12 Radiculopathy, cervical region (principal) ==

== ENCOUNTER 2022-07-22 16:00 | Outpatient (RCR) | payer BC, SELFPAY | END 2022-07-22 16:05 | disposition home or self-care (01) | LOC: PT 16:00 | PROVIDERS: PCP Internal Medicine Adolescent Medicine; Visit Provider Orthopaedic Surgery | DX: M54.2 Cervicalgia (principal); M51.26 Other intervertebral disc displacement, lumbar region | CPT/HCPCS: 97010; 97012; 97014; 97110; 97163; G0283 ==

== ENCOUNTER → 2022-11-17 16:51 | Outpatient (CLI) | payer BC, SELFPAY ==
--- NOTE | 2022-11-17 | XR_ITS ---
PROCEDURE INFORMATION: Exam: XR Right Wrist Exam date and time: 11/17/2022 5:19 PM Age: 67 years old Clinical indication: Pain; Prior surgery; Surgery date: 6+ months; Surgery type: Right wrist plate with screws; Additional info: Right wrist pain TECHNIQUE: Imaging protocol: Radiologic exam of the Right wrist. Views: 3 or more views. COMPARISON: CR [id number] [id number] [id number]-RT 10/14/2016 1:20 PM FINDINGS: Bones/joints: Orthopedic plate and screw device remains in place in the distal radius. Ununited ossification center of the ulnar styloid noted. Scapholunate joint appears widened. Osseous alignment is otherwise normal. No acute fracture evident Soft tissues: Normal. IMPRESSION: Widening of the scapholunate joint suggesting scapholunate ligament injury of indeterminate age. This appears new since prior study from 2017. No acute fracture evident
[2022-11-17 17:52] LABS: Basophils # 0.1 K/mm3 (0-0.2); Basophils % 1.7 % (0.1-2.0); Eosinophils # 0.1 K/mm3 (0.0-0.4); Eosinophils % 0.9 % (0.1-12.0); Hematocrit 46.8 % (42.0-52.0); Hemoglobin 14.6 g/dL (14.1-18.0); Lymphocytes # 1.8 K/mm3 (0.7-4.5); Lymphocytes % 34.8 % (10-50); Mean Corpuscular HGB Conc 31.2 g/dL (31.8-35.4); Mean Corpuscular Hemoglobin 22.3 pg (27.0-31.2); Mean Corpuscular Volume 71.4 fl (80-94); Mean Platelet Volume 7.3 fl (7.4-10.4); Monocytes # 0.4 K/mm3 (0.1-1.0); Monocytes % 7.9 % (1.7-9.3); Neutrophils # 2.9 K/mm3 (1.8-7.8); Neutrophils % 54.7 % (37.0-80.0); Platelet Count 397 K/mm3 (142-424); Red Blood Count 6.55 M/mm3 (4.60-6.20); Red Cell Distribution Width 18.2 % (11.5-17.5); White Blood Count 5.3 K/mm3 (4.8-10.8)
[2022-11-17 18:16] LABS: Alanine Aminotransferase 23 U/L (12-78); Albumin Level 4.8 g/dl (3.5-5.0); Albumin/Globulin Ratio 1.7 (1.1-1.8); Alkaline Phosphatase 59 U/L (38-126); Anion Gap 11.7 mEq/L (5-15); Aspartate Amino Transferase 32 U/L (17-59); Bilirubin,Total 0.8 mg/dl (0.2-1.3); Blood Urea Nitrogen 12 mg/dl (9-20); Calcium 9.9 mg/dl (8.4-10.2); Carbon Dioxide 31 mmol/L (22.0-30.0); Chloride 100 mmol/L (98-107); Estimated Glomerular Filt Rate 97 ml/min (>60); GFR (African American) 117 ML/MIN (>60); Globulin 2.8 g/dL (1.3-3.2); Glucose 95 mg/dl (74-100); Potassium 3.7 mmoL/L (3.5-5.1); Sodium 139 mmol/L (136-145); Total Protein,Serum 7.6 g/dl (6.3-8.2)
[2022-11-17 18:21] LABS: Valproic Acid, (Depakene) 48.3 ug/ml (50-100)
[2022-11-17 19:04] LABS: Vitamin B12 927 pg/mL (239-931)
[2022-11-17 19:49] LABS: 25-OH Vitamin D, Total 35.9 ng/mL (30-100)
[2022-11-17 20:06] LABS: Ferritin 10.2 ng/ml (17.9-464)
== END ==
PROVIDERS: PCP Internal Medicine Adolescent Medicine; Visit Provider Internal Medicine Adolescent Medicine
DX: M25.531 Pain in right wrist (principal); R56.9 Unspecified convulsions; I25.10 Atherosclerotic heart disease of native coronary artery without angina pectoris; G60.9 Hereditary and idiopathic neuropathy, unspecified; E66.9 Obesity, unspecified; Z68.37 Body mass index [BMI] 37.0-37.9, adult
CPT/HCPCS: 36415; 73110; 80053; 80164; 82306; 82607; 82728; 85025

== ENCOUNTER → 2023-02-14 10:01 | Outpatient (CLI) | payer BC, SELFPAY ==
--- NOTE | 2023-02-14 10:11 | ECG_ITS ---
APPROVED REPORT Exam: Resting ECG HR:66 bpm ECG Measurements Heart Rate 66 AXES OK 154 P 27 QRSd 102 QRS -6 QT 397 T -11 QTc 411 Conclusion SINUS RHYTHM VOLTAGE CRITERIA FOR LVH [MEETS CRITERIA IN ONE OF: R(aVL), S(V1), R(V5), R(V5/V6)+S(V1)] ABNORMAL ECG UNCONFIRMED REPORT Electronically signed by : Tony Hernandez MD 02/14/2023 21:14:19
--- NOTE | 2023-02-14 10:34 | XR_ITS ---
FINAL REPORT CLINICAL HISTORY: COUGH, CONGESTION COMPARISON: July 2019 FINDINGS: Two views of the chest were obtained. The heart size and pulmonary vascularity are within normal limits. The mediastinum is normal. There is mild right basilar atelectasis. There is no pneumothorax. A spinal stimulator is present. IMPRESSION: Mild right basilar atelectasis. Reviewed, Interpreted and Dictated by Dani Veliz III, MD Transcribed by Maximiliano Pelayo Authenticated and [facility]
[2023-02-14 10:57] LABS: Basophils % 0.8 % (0.1-2.0); Eosinophils # 0.1 K/mm3 (0.0-0.4); Hemoglobin 16.1 g/dL (14.1-18.0); Lymphocytes # 1.3 K/mm3 (0.7-4.5); Mean Corpuscular HGB Conc 32.2 g/dL (31.8-35.4); Mean Corpuscular Hemoglobin 26.9 pg (27.0-31.2); Mean Corpuscular Volume 83.4 fl (80-94); Monocytes # 0.4 K/mm3 (0.1-1.0); Monocytes % 8.1 % (1.7-9.3); Neutrophils # 2.7 K/mm3 (1.8-7.8); Neutrophils % 61.1 % (37.0-80.0); Platelet Count 195 K/mm3 (142-424); Red Cell Distribution Width 20.7 % (11.5-17.5); White Blood Count 4.5 K/mm3 (4.8-10.8)
[2023-02-14 11:16] LABS: Alanine Aminotransferase 28 U/L (12-78); Albumin Level 4.4 g/dl (3.5-5.0); Albumin/Globulin Ratio 1.9 (1.1-1.8); Alkaline Phosphatase 60 U/L (38-126); Anion Gap 17.4 mEq/L (5-15); Aspartate Amino Transferase 37 U/L (17-59); Bilirubin,Total 0.6 mg/dl (0.2-1.3); Blood Urea Nitrogen 18 mg/dl (9-20); Calcium 9.5 mg/dl (8.4-10.2); Carbon Dioxide 28 mmol/L (22.0-30.0); Chloride 97 mmol/L (98-107); Estimated Glomerular Filt Rate 113 ml/min (>60); GFR (African American) 137 ML/MIN (>60); Globulin 2.3 g/dL (1.3-3.2); Glucose 91 mg/dl (74-100); Potassium 4.4 mmoL/L (3.5-5.1); Sodium 138 mmol/L (136-145); Total Protein,Serum 6.7 g/dl (6.3-8.2)
== END ==
PROVIDERS: PCP Internal Medicine Adolescent Medicine; Visit Provider Orthopaedic Surgery
DX: M25.531 Pain in right wrist; Z01.818 Encounter for other preprocedural examination
CPT/HCPCS: 36415; 71046; 80053; 85025; 93005

== ENCOUNTER 2023-03-04 05:57 | Day surgery (SDC) | payer BC, SELFPAY ==
[2023-03-02 12:51] VITALS: BMI 33.0
[2023-03-04] VITALS (10 sets, daily range): BP systolic 108–153; BP diastolic 69–87; PULSE 76–84; RESP 14–18; TEMP 36.1–43; O2SAT 90–97
[2023-03-04 06:52] LABS: POC Glucose,Bedside 88 (70-110)
--- NOTE | 2023-03-04 07:05 | EXP.ANES.CKL ---
[facility] Disclaimer: The information contained in this section may have been updated after the patient was seen, as this information can be updated by other users. Medical History Angina, class II CAD (coronary artery disease) Crescendo angina Diabetes mellitus, type 2 Dyspnea HLD (hyperlipidemia) HTN (hypertension) Hyperlipidemia Hypertension Parkinson disease Seizure disorder Sexual dysfunction Vascular ectasias Surgical History H/O gastric sleeve H/O wrist surgery History of knee replacement Family History Father Family history of stroke Social History Smoking Status: Former smoker pack-years: 25 alcohol intake: current substance use type: denies use current occupational status: employed Travel in the last 8 weeks: Inside the [place] household members: spouse caffeine: Yes [facility] Anesthesia Checklist Patient Identification Patient Identification: Arm Band and Family Structural Data Admitted From: Home Planned Operative Procedure/s: Remove hardware right wrist Consent for Planned Operative Procedure(s) Verified: Yes Verified Documents: Surgical Consent, History and Physical and Cardiac Clearance NPO Status Verified Time NPO: 00:00 Additional verifications Patient : No Anesthesia Reactions: No Hx Blood Transfusions: No Blood Transfusion Reaction: No Cephalosporin Allergy: No Previous Colonoscopy: Yes Airway Assessment C-Spine Mobility Assessed: Yes TMJ Mobility Assessed: Yes Dentition: Good Dentition Neurological Assessment Level of Consciousness: Awake, Alert, Appropriate and Follows Commands Hx Seizures: Yes Numbness or tingling in extremities: No Anesthesia Plan Anesthesia Risk discussed: Yes ASA Class: III Anesthesia Type: MAC w/Block Preoperative Comments Pre-Operative Comments: Cardiac stents X2, Diabetes, history of seizures, GERD.
--- NOTE | 2023-03-04 11:15 | XR_ITS ---
FINAL REPORT CLINICAL HISTORY: HARDWARE REMOVE ATTEMPT. UNABLE TO REMOVE TODAY fluoro time: 0.05 FINDINGS: FLUORO TIME PROCEDURE: Fluoroscopy in the operating room. FINDINGS: Fluoroscopy time was provided by the radiology department for the clinical service. 1 film was obtained for hardware removal attempt. Fluoroscopy exposure time: 0.05 minutes IMPRESSION: See above Reviewed, Interpreted and Dictated by Jamin Da Silva MD Transcribed by Maida Galicia Authenticated and . [facility]
--- NOTE | 2023-03-04 11:38 | P.PNANES_ITS ---
[facility] Anesthesia Record Part I Anesthesia Record I Intake, IV Amount: 1,850 Estimated blood loss (mL): 10 Urine output (mL): 0 Blood Products used (#): none Blood Pressure: 133/86 SaO2: 90 Pulse Rate: 79 Respiratory Rate: 18 Temperature: 97.8 F Patient is:: Drowsy and Stable Stable to PACU at:: 11:30
[2023-03-04 11:43] LABS: POC Glucose,Bedside 95 (70-110)
--- NOTE | 2023-03-04 11:43 | P.OP_ITS ---
Date of procedure: 03/04/23 Pre-op Diagnosis:: Right wrist painful hardware status post open reduction internal fixation with volar plating Post-op Diagnosis:: Same Procedure performed:: Right wrist tenolysis and debridement Surgeon:: Dorian Macias DO DIESEL ENGINE I PIPE FITTER:: Other Anesthesia: GETA Estimated blood loss (mL): 0 Operative findings:: Scar tissue and adhesions around the flexor carpi radialis tendon. Hardware with cold welding of the distal screws Operative note:: Patient is identified preoperatively. Right wrist marked with yes my initials. Transported operative suite placed upon operating bed. General esthesia ministered airway secured right upper extremity prepped draped normal sterile fashion. Once prepped and draped final operative timeout performed to identify proper patient procedure and extremity. Everyone involved the case agreed. No counter indication beginning. Did receive preoperative antibiotics. Marking pen was used to make plan incision over the previous scar in the volar wrist. Esmarch was used to exsanguinate extremity pneumatic tourniquet inflated to 250 mmHg. Skin knife was used to incise the skin there is significant scarring at the dissection down careful dissection was taken down to the FCR tendon sheath tenolysis FCR tendon sheath.. Attention was brought down to the plate was identified the screw holes were identified and the plate x-ray was brought into identify the number of screws and the plate the plan at that time was remove the hardware. Upon investigating the hardware and getting the appropriate screw train driver and the distal screws it was found that several of the distal screws were cold welded to the plate. Continuing would have stripped the screws and caused significant difficulty removal of the hardware. I placed a dressing deflated the tourniquet and went and spoke with his in regards to treatment options. I did explain that we perform tenolysis and debridement of the scar tissue which could have been causing some of the stabbing pain but if we were to remove the plate it would require high-speed burs which can cause some heat injury to the median nerve and adjacent tendons there is also possibility of iatrogenic fracture of the radius upon movement removing the hardware if we had to use high-speed bur. Decision was made for tenolysis and retaining of the hardware at this time rather than high-speed bur and cutting out the cold welded screws. Tenolysis was completed debridement of scar tissue was performed copious irrigation wound performed deep layers closed with Vicryl. Skin closed with nylon. Sterile dressing placed patient waken anesthesia taken recovery stable condition Condition: stable Disposition: PACU Complications:: Unable to remove the distal screws as they were cold welded to the plate hardware removal attempt aborted and tenolysis performed.
--- NOTE | 2023-03-04 11:47 | SUR.OPER ---
1055- MD SPOKE WITH REGARDING CHANGE IN PROCEDURE DUE TO UNABLE TO REMOVE THE SCREW FROM THE HARDWARE IN RIGHT WRIST. 1100- MD ARRIVED BACK IN OR AND ORDERED PROCEDURE TO END BASED ON WIFES DECISION TO WAIT UNTIL SPOUSE WAKES UP FROM SURGERY TO MAKE FINAL DECISION ON NEXT STEP OF SCREW REMOVAL.
--- NOTE | 2023-03-04 12:42 | EXP.ANES.II ---
[facility] Anesthesia Record Part II Anesthesia Record Part II Discharge Time: 12:00 Destination: Surgical Day Care (OP Surgery) PACU nurse assessment reviewed?: Yes Patient Condition:: Good Anesthesia Complications:: None Swallowing reflex intact?: Yes Cyanosis?: No Blood Pressure: 127/74 Pulse Rate: 84 Temperature: 97 F Mental Status: Alert & Oriented Pain level:: 0 Nausea and/or vomitting:: None Intake, IV Amount: 0
== END 2023-03-04 12:39 | disposition home or self-care (01) ==
PROVIDERS: PCP Internal Medicine Adolescent Medicine; Visit Provider Orthopaedic Surgery
PROC: (CPT 25295; principal; 2023-03-04 07:30)
DX: T84.84XA Pain due to internal orthopedic prosthetic devices, implants and grafts, initial encounter (principal); Z53.09 Procedure and treatment not carried out because of other contraindication; I25.118 Atherosclerotic heart disease of native coronary artery with other forms of angina pectoris; E11.9 Type 2 diabetes mellitus without complications; Z87.891 Personal history of nicotine dependence; Z79.899 Other long term (current) drug therapy; Z79.01 Long term (current) use of anticoagulants; I10 Essential (primary) hypertension; Y83.1 Surgical operation with implant of artificial internal device as the cause of abnormal reaction of the patient, or of later complication, without mention of misadventure at the time of the procedure; Z79.84 Long term (current) use of oral hypoglycemic drugs
CPT/HCPCS: 25295; 20680; 73100; 76000; 82962; 96374; J2405; J2704

== ENCOUNTER 2023-11-01 14:26 | Outpatient (CLI) | payer BC, MEDICARE, SELFPAY ==
[2023-11-01 15:02] LABS: Basophils # 0.1 K/mm3 (0-0.2); Eosinophils # 0.1 K/mm3 (0.0-0.4); Eosinophils % 1.5 % (0.1-12.0); Hematocrit 50.9 % (42.0-52.0); Hemoglobin 17.9 g/dL (14.1-18.0); Lymphocytes # 1.3 K/mm3 (0.7-4.5); Lymphocytes % 24.4 % (10-50); Mean Corpuscular HGB Conc 35.1 g/dL (31.8-35.4); Mean Corpuscular Hemoglobin 31.1 pg (27.0-31.2); Mean Corpuscular Volume 88.5 fl (80-94); Mean Platelet Volume 7.6 fl (7.4-10.4); Monocytes # 0.3 K/mm3 (0.1-1.0); Monocytes % 5.7 % (1.7-9.3); Neutrophils # 3.6 K/mm3 (1.8-7.8); Neutrophils % 67.4 % (37.0-80.0); Platelet Count 205 K/mm3 (142-424); Red Blood Count 5.75 M/mm3 (4.60-6.20); Red Cell Distribution Width 13.5 % (11.5-17.5); White Blood Count 5.4 K/mm3 (4.8-10.8)
[2023-11-01 15:25] LABS: Alanine Aminotransferase 29 U/L (12-78); Albumin Level 4.4 g/dl (3.5-5.0); Albumin/Globulin Ratio 1.6 (1.1-1.8); Alkaline Phosphatase 76 U/L (38-126); Anion Gap 12.4 mEq/L (5-15); Aspartate Amino Transferase 33 U/L (17-59); Bilirubin,Total 0.6 mg/dl (0.2-1.3); Blood Urea Nitrogen 9 mg/dl (9-20); Calcium 9.9 mg/dl (8.4-10.2); Carbon Dioxide 27 mmol/L (22.0-30.0); Chloride 104 mmol/L (98-107); Estimated Glomerular Filt Rate 97 ml/min (>60); GFR (African American) 117 ML/MIN (>60); Globulin 2.8 g/dL (1.3-3.2); Glucose 162 mg/dl (74-100); Lactate Dehydrogenase 180 U/L (313-618); Potassium 4.4 mmoL/L (3.5-5.1); Sodium 139 mmol/L (136-145); Total Protein,Serum 7.2 g/dl (6.3-8.2)
[2023-11-01 15:42] LABS: Free Thyroxine Index 2.4 ug/dL (5.93-13.13); T4 (Thyroxine) 6.2 ug/dl (5.53-11.0); Triiodothryronine (T3) Uptake 38 % (23.5-40.5)
[2023-11-01 15:56] LABS: Thyroid Stimulating Hormone 0.61 uIU/mL (0.465-4.68)
== END 2023-11-01 23:59 ==
PROVIDERS: PCP Internal Medicine Adolescent Medicine; Visit Provider Nurse Practitioner Family
DX: Z79.899 Other long term (current) drug therapy; I88.8 Other nonspecific lymphadenitis
CPT/HCPCS: 36415; 80053; 83615; 84436; 84443; 84479; 85025

== ENCOUNTER 2023-12-19 15:42 | Outpatient (CLI) | payer BC, MEDICARE, SELFPAY ==
[2023-12-19 16:18] LABS: Basophils # 0.1 K/mm3 (0-0.2); Basophils % 1.5 % (0.1-2.0); Eosinophils # 0.2 K/mm3 (0.0-0.4); Eosinophils % 3.5 % (0.1-12.0); Hematocrit 52.9 % (42.0-52.0); Hemoglobin 17.4 g/dL (14.1-18.0); Lymphocytes # 1.3 K/mm3 (0.7-4.5); Mean Corpuscular HGB Conc 32.9 g/dL (31.8-35.4); Mean Corpuscular Hemoglobin 30.4 pg (27.0-31.2); Mean Corpuscular Volume 92.4 fl (80-94); Mean Platelet Volume 7.8 fl (7.4-10.4); Monocytes # 0.3 K/mm3 (0.1-1.0); Neutrophils # 3.8 K/mm3 (1.8-7.8); Neutrophils % 66.1 % (37.0-80.0); Platelet Count 189 K/mm3 (142-424); Red Blood Count 5.72 M/mm3 (4.60-6.20); Red Cell Distribution Width 14.1 % (11.5-17.5); White Blood Count 5.7 K/mm3 (4.8-10.8)
[2023-12-19 16:36] LABS: Chloride 109 mmol/L (98-107)
[2023-12-19 16:37] LABS: Potassium 3.7 mmoL/L (3.5-5.1); Sodium 139 mmol/L (136-145)
[2023-12-19 16:39] LABS: Alanine Aminotransferase 33 U/L (12-78); Alkaline Phosphatase 69 U/L (38-126); Aspartate Amino Transferase 36 U/L (17-59); Bilirubin,Total 0.6 mg/dl (0.2-1.3); Blood Urea Nitrogen 9 mg/dl (9-20); Estimated Glomerular Filt Rate 97 ml/min (>60); GFR (African American) 117 ML/MIN (>60)
[2023-12-19 16:40] LABS: Albumin Level 4.3 g/dl (3.5-5.0); Albumin/Globulin Ratio 1.7 (1.1-1.8); Anion Gap 7.7 mEq/L (5-15); Calcium 9.6 mg/dl (8.4-10.2); Carbon Dioxide 26 mmol/L (22.0-30.0); Globulin 2.5 g/dL (1.3-3.2); Glucose 131 mg/dl (74-100); Total Protein,Serum 6.8 g/dl (6.3-8.2)
[2023-12-19 16:59] LABS: T4 (Thyroxine) 5.8 ug/dl (5.53-11.0)
[2023-12-19 17:12] LABS: Thyroid Stimulating Hormone 1.34 uIU/mL (0.465-4.68)
[2023-12-20 14:16] LABS: Thyroid Peroxidase Antibodies <9 IU/mL (0-34)
[2023-12-20 15:31] LABS: Thyroglobulin Level <1.0 IU/mL (0.0-0.9)
== END 2023-12-19 23:59 ==
LOC: RT 15:45
PROVIDERS: PCP Internal Medicine Adolescent Medicine; Visit Provider Internal Medicine Adolescent Medicine
DX: I88.9 Nonspecific lymphadenitis, unspecified (principal); R00.2 Palpitations
CPT/HCPCS: 36415; 80053; 84436; 84443; 85025; 86376; 86800; 93225; 93226

== ENCOUNTER 2024-01-04 14:59 | Outpatient (CLI) | payer BC, SELFPAY ==
--- NOTE | 2024-01-04 15:03 | US_ITS ---
FINAL REPORT TECHNIQUE: Real-time grayscale and color ultrasound of the soft tissues of the neck was performed. CLINICAL HISTORY: CERVICAL LYMPHADENITIS COMPARISON: None FINDINGS: Ultrasound images of the area of concern were obtained. Color Doppler images were submitted. The bilateral mandibular and parotid glands are unremarkable. There are several small nodes. No mass or fluid collection identified. IMPRESSION: No acute process. Reviewed, Interpreted and Dictated by Dani Veliz III, MD Transcribed by Blessing Farias Authenticated and . [facility]
== END 2024-01-04 23:59 ==
LOC: RAD 15:00
PROVIDERS: PCP Internal Medicine Adolescent Medicine; Visit Provider Internal Medicine Adolescent Medicine
DX: I88.9 Nonspecific lymphadenitis, unspecified (principal)
CPT/HCPCS: 76536

== ENCOUNTER 2024-04-19 16:00 | Outpatient (RCR) | payer BC, SELFPAY | END 2024-04-19 17:20 | disposition home or self-care (01) | LOC: PT 16:00 | PROVIDERS: Visit Provider Podiatrist Foot & Ankle Surgery | DX: M79.671 Pain in right foot (principal); M72.2 Plantar fascial fibromatosis | CPT/HCPCS: 97035; 97110; 97163 ==

== ENCOUNTER 2025-04-09 12:21 | Outpatient (CLI) | payer BC, SELFPAY ==
--- NOTE | 2025-04-09 | CA_ITS ---
APPROVED REPORT Exam: Pharmacologic Technologist: Ludivina Marroquin Ht: 5 ft 10 in Wt: 244 lbs BSA: 2.27 m2 HR: 64 bpm BP: 128/85 mmHg Stress Test Details Test: Lexiscan HR Resting HR: 64 bpm Max Heart Rate (APMHR): 153 bpm Max HR Achieved: 90 bpm Target HR (85% APMHR): 130 bpm % of APMHR: 59 Recovery HR: 73 bpm BP Resting BP: 128.0/85.0 mmHg Max BP: 161.0/92.0 mmHg Recovery BP: 128.0/85.0 mmHg ECG Resting ECG: Normal sinus rhythm Stress ECG Conclusion Symptoms: Lightheaded, dyspnea, chest pressure, nausea Arrhythmias/Ectopy: - ST-T Changes: Less than [address] depression. Conclusion: EKG unremarkable due to Lexiscan infusion. Electronically signed by : Arely Patton MD 04/09/2025 23:40:15
--- NOTE | 2025-04-09 13:00 | NM_ITS ---
APPROVED REPORT Exam: Nuclear Stress Test Indication: cp Patient Location: Outpatient Stress Tech: Ludivina Marroquin [place] Tech:Johnna DiaYONATAN, RT (R)(N) Ht: 5 ft 10 in Wt: 240 lbs HR: 64 bpm BP: 128/85 mmHg BSA: 2.26 m2 TID: 1.18 BMI: 34.4 History: cp Procedure: Patient received 0.4 mg of intravenous Lexiscan, resting heart rate 64 bpm, resting blood pressure 128/85 mmHg, with Lexiscan maximum heart rate achieved was 90 bpm which is 85 % of the maximum predicted heart rate and blood pressure was 130/83 mmHg. With Lexiscan, patient denied any complaint of chest pain. Cardiac Stress and Resting SPECT Images: Cardiac Stress and Resting SPECT images were obtained using technetium 99m Myoview 30.7 mCi stress and 10.66 mCi at rest. Resting and stress imaging in supine and heart positions demonstrate a medium sized, moderate, partially reversible perfusion defect in the basal inferior, inferoseptal, and lateral LV dos santos. Gated imaging demonstrates mild reduction in global LV systolic function. There is moderate hypokinesis of the basal inferior LV wall. LVEF is calculated at 43%. Conclusion: Medium sized, moderate, partially reversible perfusion defect in the basal inferior, inferoseptal, and lateral LV dos santos. Findings are suggestive of partial reversible ischemia. Gated imaging demonstrates mild reduction in global LV systolic function. There is moderate hypokinesis of the basal inferior LV wall. LVEF is calculated at 43%. Electronically signed by : Arely Patton MD 04/09/2025 23:25:20
[2025-04-09] MEDS: SODIUM CHLORIDE 0.9% 10ML SYR (RAD ONLY) 10 ML IV ×2 (14:20)
[2025-04-09] MEDS: ISOTOPE MYOVIEW (PER STUDY) 1 DOSE IV (14:21)
== END 2025-04-09 23:59 | disposition home or self-care (01) ==
LOC: RAD 12:21
PROVIDERS: PCP Internal Medicine Adolescent Medicine; Visit Provider Internal Medicine
DX: R94.39 Abnormal result of other cardiovascular function study (principal); I25.10 Atherosclerotic heart disease of native coronary artery without angina pectoris; I10 Essential (primary) hypertension; R94.31 Abnormal electrocardiogram [ECG] [EKG]
CPT/HCPCS: 78452; 93016; 93017; 93018; A9502; J2785

== ENCOUNTER 2025-04-19 08:20 | Day surgery (SDC) | payer BC, SELFPAY ==
[2025-04-19] VITALS (12 sets, daily range): BP systolic 105–169; BP diastolic 66–103; PULSE 56–71; RESP 16–18; TEMP 36.6; O2SAT 88–96; BMI 34.5
--- NOTE | 2025-04-19 07:08 | IR_ITS ---
APPROVED REPORT Patient Location: Outpatient Bread Oven Operator: YONATAN Philippe RT (R) PROCEDURES Left heart catheterization Left ventriculogram Selective coronary angiogram Drug-eluting stent deployment to the proximal and mid dominant right coronary INDICATION Coronary artery disease, Angina pectoris, Abnormal Myoview Informed consent was obtained prior to the procedure. COMPLICATIONS None Estimated Blood Loss: Less than 10 mls TECHNIQUE One percent lidocaine used to anesthetize the right anterior aspect of the wrist. The right radial artery was accessed via the Seldinger technique. A 6 Estonian sheath was placed in the right radial artery. 2.5 mg of Verapamil, 800 mcg of nitroglycerin, 1mg Lidocaine and 5000 U Heparin were given through the arterial sheath. The JL3 catheter was also used to perform left heart catheterization, left ventriculogram and selective coronary angiogram. At the end the diagnostic angiogram therapeutic heparin was administered giving a therapeutic ACT and the guide catheter space of the right coronary followed by Choice PT extra-support wire placed distally. A 4.5 x 30 mm [place] frontier stent was deployed at 20 fatoumata reducing the stenosis. An additional 5 mm x 12 mm [place] frontier stent was placed proximal to the first stent at still overlapping the stent and deployed at 20 fatoumata. The balloon was advanced to an area of interest which appeared to be under deployed and the balloon then deployed at 20 fatoumata giving excellent angiographic results. BRODERICK-3 flow was present before and after the procedure. At the end the procedure the apparatus was removed the sheath was removed and hemostasis was achieved using TR banding patient was transferred to the postop putting in stable condition ANGIOGRAPHIC RESULTS The left main artery Normal The left anterior descending artery Is a stent in the proximal to mid segment which is widely patent with minimal in-stent restenosis. Distal to the stent transitioning a 30% concentric stenosis is identified. The remaining LAD is widely patent The circumflex artery Nondominant with diffuse 10% luminal regularities The right coronary artery Massively large dominant with proximal 50% stenosis followed by 30% followed by an additional concentric 60% stenosis. Distally in the vessel there are diffuse 30 to 40% stenosis. This gives rise to a large posterior descending and posterior lateral branch which are widely patent The UREÑA ventriculogram reveals Preserved 60% The left ventricular end-diastolic pressure 10 mmHg IMPRESSION Hemodynamically severe disease in the proximal right coronary artery accounting for the abnormal stress test Successful stenting of the proximal to mid right coronary artery, hemodynamically severe disease reduced to 0% with 2 contiguous drug-eluting stents Patent proximal to mid LAD stent as described above Preserved ejection fraction Normal LVEDP PLAN 1. Dual antiplatelet therapy 2. Aggressive risk factor modification 3. Cardiac rehabilitation 4. Avoidance of tobacco products 5. LDL less than 55 to be achieved with high intensity statin Electronically signed by : Shaan Powers MD 04/19/2025 11:45:28
[2025-04-19 08:54] LABS: Hematocrit 48.9 % (42.0-52.0); Hemoglobin 16.8 g/dL (14.1-18.0); Immature Granulocytes % 0.2 %; Mean Corpuscular HGB Conc 34.4 g/dL (31.8-35.4); Mean Corpuscular Hemoglobin 29.4 pg (27.0-31.2); Mean Corpuscular Volume 85.6 fl (80-94); Nucleated Red Blood Cells % 0 %; Platelet Count 173 K/mm3 (142-424); Red Blood Count 5.71 M/mm3 (4.60-6.20); Red Cell Distribution Width-SD 39.0 fL; White Blood Count 6.4 K/mm3 (4.8-10.8)
[2025-04-19 09:08] LABS: Anion Gap 17.2 mEq/L (5-15); Blood Urea Nitrogen 12 mg/dl (9-20); Calcium 9.7 mg/dl (8.4-10.2); Carbon Dioxide 26 mmol/L (22.0-30.0); Chloride 101 mmol/L (98-107); Creatinine Clearance Estimated 111 mL/min (50-200); Creatinine,Serum 0.80 mg/dl (0.66-1.25); Estimated Glomerular Filt Rate 96 ml/min (>60); GFR (African American) 117 ML/MIN (>60); Glucose 120 mg/dl (74-100); Potassium 4.2 mmoL/L (3.5-5.1); Sodium 140 mmol/L (136-145)
[2025-04-19] MEDS: LIDOCAINE 1% 10ML MDV 10 ML IJ (10:28)
[2025-04-19] MEDS: HEPARIN 1,000 UNITS/ML 10ML VIAL (CATH LAB) 5000 UNIT IV ×2 (10:28→11:03)
[2025-04-19] MEDS: 0.9 % SODIUM CHLORIDE 500 ML 25 ML IV (10:28)
[2025-04-19] MEDS: HEPARIN 1,000 UNITS/500ML NS (CATH LAB) 3000 UNIT IV (10:29)
[2025-04-19] MEDS: NITROGLYCERIN 800MCG/8ML SYR (CATH LAB) 800 MCG IA (10:29)
[2025-04-19] MEDS: VERAPAMIL 2.5MG/ML 2ML VIAL 2.5 MG IV (10:29)
[2025-04-19] MEDS: MIDAZOLAM HCL 1MG/ML 5ML VIAL 1 MG IV (11:02)
[2025-04-19] MEDS: FENTANYL 100MCG/2ML VIAL 50 MCG IV (11:02)
[2025-04-19] MEDS: IOPAMIDOL-370 (76%);100ML BOTTLE 90 ML IV (15:14)
[2025-04-19 15:19] LABS: CATHL Activated Clotting Time > 400 SEC (74-125)
== END 2025-04-19 14:16 | disposition home or self-care (01) ==
PROVIDERS: PCP Internal Medicine Adolescent Medicine; Visit Provider Internal Medicine
PROC: 4A023N7 Measurement of Cardiac Sampling and Pressure, Left Heart, Percutaneous Approach (ICD-10-PCS; CPT 93452; principal; 2025-04-19 09:30)
DX: I25.118 Atherosclerotic heart disease of native coronary artery with other forms of angina pectoris (principal); R94.31 Abnormal electrocardiogram [ECG] [EKG]; E11.9 Type 2 diabetes mellitus without complications; I10 Essential (primary) hypertension; I42.8 Other cardiomyopathies; E78.2 Mixed hyperlipidemia; G20.A1 Parkinson's disease without dyskinesia, without mention of fluctuations; R56.9 Unspecified convulsions; Z87.891 Personal history of nicotine dependence; Z79.82 Long term (current) use of aspirin; Z79.02 Long term (current) use of antithrombotics/antiplatelets; Z79.85 Long-term (current) use of injectable non-insulin antidiabetic drugs; Z79.84 Long term (current) use of oral hypoglycemic drugs; Z79.899 Other long term (current) drug therapy; Z82.3 Family history of stroke
CPT/HCPCS: 80048; 85025; 85347; 92928; 93458; 99152; C1725; C1769; C1874; C9600; J1200; J1644; J3010; J7040; Q9967

== ENCOUNTER 2025-04-22 07:18 | Outpatient (CLI) | payer BC, SELFPAY ==
--- OUTSIDE RECORDS SUMMARY | 2025-04-22 07:20 | XMS_ITS | Clinical Summary ---
[facility] Organization [facility] Address [address] [place] [address] Care Team Providers Care Agronomy Instructor Name Role Phone Mamadou Ross MD Primary Care Provider +1- [phone] Allergies No known active allergies Medications oxyCODONE-acetam inophen (PERCOCET) 7.5-325 MG per tablet Take 1 tablet by mouth Every 8 (Eight) Hours As Needed. 8 tablet 10/02/2024 12:19 PM EST 10/02/2024 Active Social History Tobacco Use Types Packs/Day Years Used Date Smoking Tobacco: Never Assessed Sex and Gender Information Value Date Recorded Sex Assigned at Not on file Legal Sex Male 10:20 AM EDT Gender Identity Not on file Sexual Orientation Not on file Plan of Treatment Health Maintenance Due Date Last Done Comments COLOGUARD 2002 COLON CANCER SCREENING 5 YEA R SIGMOIDOSCOPY 2002 COLONOSCOPY 2002 COLORECTAL CANCER SCREENING 2002 CT COLONOGRAPHY 2002 FECAL OCCULT BLOOD TEST 2002 FIT Testing (1 year) 2002 AAA SCREEN ONCE 2022 COVID-19 Vaccine (4 - 2023-2 5 season) 2024 05/21/2022, 07/29/2021, 12/10/2020 ANNUAL PHYSICAL 10/12/2024 HEPATITIS C SCREENING 10/12/2024 INFLUENZA VACCINE 07/03/2025 07/06/2023, , 07/24/2020, Additional history exists TDAP/TD VACCINES (4 - Td or Tdap) 03/25/2033 03/25/2023, 02/07/2023, 12/08/1996 Pneumococcal Vaccine 50+ Completed 09/03/2022 ZOSTER VACCINE Completed 03/25/2023, 08/02/2022 Insurance [employer] Care Teams Agronomy Instructor Relationship Specialty Start Date End Date Mamadou Ross MD [address] [facility] [address] [place] [address] PCP - General General Surgery 04/16/16
[2025-04-22 08:04] LABS: Hematocrit 49.1 % (42.0-52.0); Hemoglobin 16.6 g/dL (14.1-18.0); Mean Corpuscular HGB Conc 33.8 g/dL (31.8-35.4); Mean Corpuscular Hemoglobin 29.0 pg (27.0-31.2); Mean Corpuscular Volume 85.8 fl (80-94); Platelet Count 190 K/mm3 (142-424); Red Blood Count 5.72 M/mm3 (4.60-6.20); Red Cell Distribution Width-SD 38.8 fL; White Blood Count 6.6 K/mm3 (4.8-10.8)
[2025-04-22 08:05] LABS: Immature Granulocytes % 0.3 %; Nucleated Red Blood Cells % 0 %
[2025-04-22 09:45] LABS: Anion Gap 13.1 mEq/L (5-15); Blood Urea Nitrogen 9 mg/dl (9-20); Calcium 9.4 mg/dl (8.4-10.2); Carbon Dioxide 23 mmol/L (22.0-30.0); Chloride 105 mmol/L (98-107); Creatinine,Serum 0.80 mg/dl (0.66-1.25); Estimated Glomerular Filt Rate 96 ml/min (>60); GFR (African American) 117 ML/MIN (>60); Glucose 88 mg/dl (74-100); Potassium 4.1 mmoL/L (3.5-5.1); Sodium 137 mmol/L (136-145)
== END 2025-04-22 23:59 | disposition home or self-care (01) ==
LOC: LAB 07:19
PROVIDERS: PCP Internal Medicine Adolescent Medicine; Visit Provider Internal Medicine
DX: I25.10 Atherosclerotic heart disease of native coronary artery without angina pectoris (principal)
CPT/HCPCS: 36415; 80048; 85025

== ENCOUNTER 2025-04-24 08:14 | Outpatient (CLI) | payer BC, SELFPAY ==
--- OUTSIDE RECORDS SUMMARY | 2025-04-24 08:21 | XMS_ITS | Clinical Summary ---
[facility] Address [address] [place] [id number] Care Team Providers Care Tufting Machine Fixer Name Role Phone Mamadou Ross MD Primary Care Provider +1- [phone] Allergies No known active allergies Medications oxyCODONE-acetam [...] 09/03/2022 ZOSTER VACCINE Completed 03/25/2023, 08/02/2022 Insurance [employer] [employer] EMPL[employer]EE Care Teams Tufting Machine Fixer Relationship Specialty Start Date End Date Mamadou Ross MD [address] [facility] [address] [place] [address] PCP - General General Surgery 04/16/16
--- NOTE | 2025-04-24 08:45 | CA_ITS ---
APPROVED REPORT EXAM: Comprehensive 2D, Doppler, and color-flow Echocardiogram Ammonium Sulfate Operator: Heena Mercado RT(R) Ht: 5 ft 10 in Wt: 241lbs BSA: 2.26 BP: 125/85 mmHg Indications: hx cardiomyopathy, recent cardiac stents 2D Dimensions LVEF (Bull's) 48.00 % M: 52 - 72 LV Volume 103.90 mL M: 62 - 150 LV Volume Index 46.0 mL/m2 M: 34 - 74 LA Volume 41.40 mL LA Volume Index 18.32 mL/m2 (M/F) 16-34 EF AP4 55.30 % EF AP2 42.1 % EF BP 48.0 % GL Strain -15.5 % M-Mode Dimensions RVDd 2.77 cm (0.9-2.6) LA Diam 4.35 cm (1.9-4.0) LVDd 4.33 cm (3.5-5.7) LVDs 3.17 cm (3.5-5.7) IVSd 0.80 cm (0.6-1.1) PWd 1.12 cm (0.6-1.1) EF (Teich) 52.60% FS 26.80% EDV (Teich) 84.40 mL ESV (Teich) 40.00 mL LV Diastology E Decel Time 183 (160-240 msec) E/A Ratio 1.0 Aortic Valve KEMI Index 1.07 cm2/m2 AoV Peak Sandip. 158.0 (50-130 cm/s) AO Peak GR. 10.00 mmHg AO Mean GR. 4.90 (<5 mmHg) AO VTI 34.9 (18-25 cm) KEMI (VTI) 2.47 (2.5-4.5 cm2) Mitral Valve MV E Max Sandip. 79.0 (40-130 cm/s) MV A Velocity 82.0 (40-130 cm/s) E/A Ratio 0.95 MV PHT 54.0 ms Left Ventricle The left ventricle is normal size. There is increased LV wall thickness. The left ventricular systolic function is normal. The left ventricular ejection fraction is within the normal range. There is mild hypokinesis of the basal inferolateral LV wall. The left ventricular diastolic function is normal. LVEF is 55%. Right Ventricle The right ventricle is normal size. The right ventricular systolic function is normal. Atria The left atrium size is normal. The right atrium size is normal. There is no Doppler evidence of interatrial shunt. Aortic Valve Aortic valve is mildly thickened. There is no aortic valvular stenosis. Mild aortic regurgitation. Mitral Valve The mitral valve leaflets are mildly thickened. Trace mitral regurgitation. Tricuspid Valve The tricuspid valve leaflets are thickened. There is possibly an echodensity noted at the level of the tricuspid valve leaflets, cannot rule out tricuspid valve vegetation or thrombus. Trace tricuspid regurgitation. There is insufficient TR jet to estimate RVSP. Pulmonic Valve The pulmonary valve is normal in structure. Mild pulmonic regurgitation. Great Vessels The aortic root is normal in size. IVC is normal in size and collapses >50% with inspiration. Pericardium There is no pericardial effusion. Other Information Study Quality: Fair Conclusion Normal biventricular systolic function. Mild hypokinesis of the basal inferolateral LV wall. Mild AI, mild PI. The tricuspid valve leaflets are thickened. There is possibly an echodensity noted at the level of the tricuspid valve leaflets, cannot rule out tricuspid valve vegetation or thrombus. In the setting of possible tricuspid valve echodensity, further evaluation with either OLGA or cardiac MRI (cardiomyopathy protocol) may be suggested. Electronically signed by : Arely Patton MD 04/24/2025 10:00:10
== END 2025-04-24 23:59 | disposition home or self-care (01) ==
LOC: RT 08:15
PROVIDERS: PCP Internal Medicine Adolescent Medicine; Visit Provider Nurse Practitioner Family
DX: I08.8 Other rheumatic multiple valve diseases (principal); I42.9 Cardiomyopathy, unspecified; R93.1 Abnormal findings on diagnostic imaging of heart and coronary circulation; Z95.5 Presence of coronary angioplasty implant and graft
CPT/HCPCS: 93306

== ENCOUNTER 2025-05-02 13:37 | Outpatient (CLI) | payer BC, SELFPAY ==
--- OUTSIDE RECORDS SUMMARY | 2025-05-02 13:39 | XMS_ITS | Clinical Summary ---
[facility] Address [address] [place] [id number] Care Team Providers Care Senior Sql Server Database Developer Name Role Phone Mamadou Ross MD Primary Care Provider +1- [phone] Allergies No known active allergies Medications oxyCODONE-acetam [...] 09/03/2022 ZOSTER VACCINE Completed 03/25/2023, 08/02/2022 Insurance [employer] Care Teams Senior Sql Server Database Developer Relationship Specialty Start Date End Date Mamadou Ross MD [address] [facility] [address] [place] [address] PCP - General General Surgery 04/16/16
[2025-05-02 14:10] LABS: Chloride 98 mmol/L (98-107)
[2025-05-02 14:11] LABS: Potassium 4.3 mmoL/L (3.5-5.1); Sodium 133 mmol/L (136-145)
[2025-05-02 14:13] LABS: Blood Urea Nitrogen 11 mg/dl (9-20); Creatinine,Serum 0.80 mg/dl (0.66-1.25); Estimated Glomerular Filt Rate 96 ml/min (>60); GFR (African American) 117 ML/MIN (>60)
[2025-05-02 14:14] LABS: Anion Gap 10.3 mEq/L (5-15); Calcium 9.9 mg/dl (8.4-10.2); Carbon Dioxide 29 mmol/L (22.0-30.0); Glucose 100 mg/dl (74-100)
[2025-05-02 14:31] LABS: Troponin I < 0.01 ng/ml (0.00-0.034)
== END 2025-05-02 23:59 | disposition home or self-care (01) ==
LOC: LAB 13:38
PROVIDERS: PCP Internal Medicine Adolescent Medicine; Visit Provider Physician Assistant
DX: I20.9 Angina pectoris, unspecified (principal); I42.8 Other cardiomyopathies
CPT/HCPCS: 36415; 80048; 84484

== ENCOUNTER 2025-06-27 12:23 | Outpatient (CLI) | payer MEDICARE, SELFPAY ==
--- OUTSIDE RECORDS SUMMARY | 2025-05-14 13:30 | XMS_ITS | Encounter Summary ---
Author Organization [facility] Address [address] [place] [address] Care Team Providers Care Manager Requirements Name Role Phone Unavailable Primary Care Provider Unavailabl e Reason for Visit * Reason Comments Sleep Issues Pt wants to talk abo ut Inspire pt has issues with sleep Encounter Details Date Type Department Care Team (Late st Contact Info) Description 05/14/2025 1:30 PM EDT Office Visit [facility] Physicians - Ear, Nose & Throat, [place] [address] [facility] [address] [place] [address] Shaan Day MD [address] [place] [address] MAYDA (obstructive sleep apnea) (Primary Dx); BMI 33.0-33.9,adult Social History Tobacco Use Types Packs/Day Years Used Date Smoking Tobacco: Never Passive Smoke Exposure: Never Smokeless Tobacco: Never Tobacco Cessation:Counseling Given: Not Answered Alcohol Use Standard Drinks/Week Comments Yes 0 (1 standard drink = 0.6 oz pur e alcohol) Sex and Gender Information Value Date Recorded Sex Assigned at Male 05/10/2025 9:56 AM EDT Legal Sex Male 2:00 PM EDT Gender Identity Male 05/10/2025 9:56 AM EDT Sexual Orientation Straight 05/10/2025 9: 56 AM EDT documented as of this encounter Last Filed Vital Signs Vital Sign Reading Time Taken Comments Blood Pressure - - Pulse - - Temperature - - Respiratory Rate - - Oxygen Saturation - - Inhaled Oxygen Concentration - - Weight 108.9 kg (240 lb) 05/14/2025 1:31 PM EDT Height 180.3 cm (5' 11 ) 05/14/2025 1:31 PM EDT Body Mass Index 33.47 05/14/2025 1:31 PM EDT documented in this encounter Progress Notes * Shaan Day MD - 05/14/2025 1:30 PM EDT [facility] DEPARTMENT OF OTOLARYNGOLOGY- HEAD & NECK SURGERY Age: 69 y.o. (: 1955) Ethnicity: Non- Race: White/ Gender: male Chief Complaint: Sleep Issues (Pt wants to talk about Inspire pt has issues with sleep) Referred by Suhas Stacy Assessment ICD-10-CM 1. MAYDA (obstructive sleep apnea) G47.33 2. BMI 33.0-33.9,adult Z68.33 No Encounter Medications Assessment & Plan Obstructive sleep apnea Inspire evaluation -I discussed with the patient that moderate to severe obstructive sleep apnea, corresponding with an AHI between 15 and 65, as well as <25% central and mixed apnea (in comparison to total apnea/hypopnea events) overnight are recommended for this procedure. The patient's AHI was 47.2 and the central apnea index was 0.1 with no mixed apneas. -It is recommended that the patient's most recent sleep study is within the past 3 years, and this patient's study was April 2025. -It is important that the patient have previously tried CPAP or BiPAP with either an inability to use (less than 5 nights per week of usage; usage defined as greater than 4 hours of use per night), or unwillingness to use (such as returning the symptom after attempting to use). This patient has nottolerated use, and shared decision making between myself and the patient indicated they have been intolerant of CPAP despite consultation with sleep medicine. -This patient is at least 22 years of age, which is recommended currently for implantation of the device. The device is also indicated in patients 18-21 who are contraindicated for or not effectivelytreated by adenotonsillectomy. -We discussed the role for other forms of both medical and surgical management of sleep apnea including but not limited to tonsillectomy, expansion pharyngoplasty, maxillomandibular advancement, hyoid suspension, and oral appliances. -The patient cannot be significantly overweight. Medicare requires BMI less than 35, and typical commercial insurance requires BMI 32 or less. The patient's current BMI is 33.5. -It is important to have the appropriate upper airway anatomy prior to undergoing this procedure. Iwould recommend a drug-induced sleep endoscopy to ensure there is no complete concentric collapse at the level of the soft palate. The risks, benefits, and alternatives to this procedure were discussed with the patient, including but not limited to nasal irritation and/or need for further surgery. They would like to proceed with a drug-induced sleep endoscopy as an outpatient. Coronary artery disease with coronary stents Coronary artery disease with coronary stents, currently on Plavix. Requires cardiac clearance to determine ability to discontinue Plavix prior to surgery. - Obtain cardiac clearance to assess ability to discontinue Plavix prior to Inspire implant surgery. History of Present Illness dani Garland is a 69 year old male with sleep apnea who presents with intolerance to CPAP therapy. He was referred by Dr. Stacy for evaluation of sleep apnea management. He has been using a CPAP machine for at least ten years but finds it not fully effective. He often removes the mask several times during the night, indicating intolerance to the therapy. He has triedseveral different masks over the years without success. A recent sleep study conducted in April 2025 showed an apnea-hypopnea index (AHI) of 47.2, with the lowest oxygen saturation recorded at 81%. The study indicated a central apnea index of 0.2 with no mixed apneas. Current BMI is 33.5 He is currently on Plavix due to a history of coronary stents. Objective Medications- Current, Listed Cont[1] Ht 5' 11 (1.803 m) Wt 240 lb (108.9 kg) BMI 33.47 kg/m?? Physical Exam Constitutional: Well-developed, well-nourished in no acute distress. Able to communicate Psychiatric: Calm mood/affect Head: atraumatic, normocephalic Eyes: EOMI Ears: External ears have a normal appearance. Nose: External nose without infection or abnormality. No sinus tenderness. Anterior rhinoscopy performed. Mucosa intact. Turbinates unremarkable. No masses, polyps, or pus. No septal perforation. OC/OP: Mallampati four. Tonsils 1+ Neck/Lymphatic: Overall appearance normal. No lymphadenopathy. Neck symmetric with normal tracheal position. No crepitus. Normal thyroid on palpation. Salivary glands normal size. Cardiovascular: Examination of the carotid arteries upon palpation reveals no increase in pulse amplitude. Respiratory: Symmetrical chest rise Musculoskeletal: No TMJ crepitus with opening or closing of mouth Neurologic: HB 1/6 bilaterally. Other cranial nerves grossly WNL. Procedure Imaging The patient/family provided verbal consent to the use of ambient listening technology/audio recording during this visit. I reviewed/edited the note before signing. [1] Current Outpatient Medications: atorvastatin (LIPITOR) 40 mg Tablet, , Disp: , Rfl: clopidogreL (PLAVIX) 75 mg tablet, , Disp: , Rfl: colestipoL (COLESTID) 1 gram tablet, , Disp: , Rfl: divalproex (DEPAKOTE) 500 mg Tablet, Delayed Release (E.C.), , Disp: , Rfl: Farxiga 10 mg Tablet tablet, , Disp: , Rfl: gabapentin (NEURONTIN) 100 mg capsule, , Disp: , Rfl: isosorbide mononitrate (IMDUR) 30 mg CR tablet, Take 30 mg by mouth daily., Disp: , Rfl: losartan (COZAAR) 25 mg Tablet, , Disp: , Rfl: metoprolol succinate (TOPROL) 25 mg XL tablet, Take 25 mg by mouth daily., Disp: , Rfl: Ozempic 1 mg/dose (4 mg/3 mL) Pen Injector, INJECT 1 MG UNDER THE SKIN ONCE WEEKLY ON THE SAME DAY EACH WEEK, Disp: , Rfl: pantoprazole (PROTONIX) 40 mg Tablet, Delayed Release (E.C.), Take 40 mg by mouth daily., Disp: , Rfl: rOPINIRole (REQUIP) 4 mg Tablet, Take 4 mg by mouth daily., Disp: , Rfl: Sure Comfort Insulin Syringe 1 mL 29 gauge x 1/2 Syringe, USE DIRECTED, Disp: , Rfl: traZODone (DESYREL) 300 mg tablet, , Disp: , Rfl: verapamiL (VERELAN) 180 mg CR capsule, , Disp: , Rfl: documented in this encounter Plan of Treatment Upcoming Encounters Date Type Department Care Team (Latest Contact Info) Description 07/03/2025 11:10 AM EDT Hospital Encounter Periop B-Level [address] [place] [address] Shaan Day MD [address] [facility] [place] [address] 07/03/2025 11:10 AM EDT - 07/03/2025 12:25 PM EDT Surgery Periop B-Level [address] [place] [address] Shaan Day MD [address] [facility] [place] [address] Insertion of hypoglossal nerve stimulator 07/09/2025 8:30 AM EDT Appointment [facility] Physicians - Ear, Nose & Throat, [address] [place] [address] Shaan Day MD [address] [facility] [address] [place] [address] Scheduled Procedures Name Priority Associated Diagnoses Date/Ti me IMPLANT HYPOGLOSSAL NERVE STIMULATOR SYSTEM 5 Obstructive sleep apnea 07/03/2025 11:10 AM EDT documented as of this encounter Visit Diagnoses Diagnosis MAYDA (obstructive sleep apnea)- Primary Obstructive sleep apnea (adult) (pediatric) BMI 33.0-33.9,adult Body Mass Index 33.0-33.9, adult Obstructive sleep apnea Obstructive sleep apnea (adult) (pediatric) documented in this encounter
--- OUTSIDE RECORDS SUMMARY | 2025-05-29 10:00 | XMS_ITS | Encounter Summary ---
Author Organization [facility] Address [address] [place] [address] Care Team Providers Care Manufacturing Quality Inspector Name Role Phone Unavailable Primary Care Provider Unavailabl e Encounter Details Date Type Department Care Team (Latest Contact Info) Description 05/29/2025 10:00 AM EDT - 05/29/2025 11:59 PM EDT Hospital Encounter PRE SURGICAL TESTING [phone] Discharge Disposition: Home or Self Care Social History Tobacco Use Types Packs/Day Years Used Date Smoking Tobacco: Former Cigarettes Passive Smoke Exposure: Never Smokeless Tobacco: Never Tobacco Cessation:Counseling Given: Not Answered Alcohol Use Standard Drinks/Week Comments Yes 0 (1 standard drink = 0.6 oz pur e alcohol) 7/wk Sex and Gender Information Value Date Recorded [...] - Inhaled Oxygen Concentration - - Weight 108.4 kg (239 lb) 05/29/2025 10:04 AM EDT Height 180.3 cm (5' 11 ) 05/29/2025 10:04 AM EDT Body Mass Index 33.33 05/29/2025 10:04 AM EDT documented in this encounter Medications at Time of Discharge atorvastatin (LIPITOR) 40 mg TabletIndication s:hypercholester olemia Take 40 mg by mouth nightly at bedtime. Indications: high cholesterol 02/05/2025 clopidogreL (PLAVIX) 75 mg tablet Take 75 mg by mouth daily. 05/14/2025 colestipoL (COLESTID) 1 gram tablet Take 2 g by mouth 2 times daily. 04/29/2025 divalproex (DEPAKOTE) 500 mg Tablet, Delayed Release (E.C.)Indication s:seizure disorder Take 500 mg by mouth in the morning and 500 mg before bedtime. Indications: seizure disorder. 03/13/2025 Farxiga 10 mg Tablet tablet Take 10 mg by mouth daily. 05/14/2025 gabapentin (NEURONTIN) 100 mg capsule Take 100 mg by mouth. 1tab in am and 4 tabs at night 03/12/2025 losartan (COZAAR) 25 mg Tablet Take 25 mg by mouth daily. 05/14/2025 magnesium oxide (MAG-OX) 400 mg (241.3 mg magnesium) tabletIndication s:hypomagnesemia Take 400 mg by mouth daily. Indications: low amount of magnesium in the blood metoprolol succinate (TOPROL) 25 mg XL tablet Take 25 mg by mouth in the morning. 04/16/2025 omeprazole (PriLOSEC) 40 mg Capsule, Delayed Release(E.C.) Take 40 mg by mouth in the morning. Ozempic 1 mg/dose (4 mg/3 mL) Pen InjectorIndicati ons:type 2 diabetes mellitus,weight loss management for obese patient (bmi >= 30) 1 mg by Subcutaneous route every Tuesday. Indications: type 2 diabetes mellitus, weight loss management for a person with obesity 05/02/2025 pantoprazole (PROTONIX) 40 mg Tablet, Delayed Release (E.C.) Take 40 mg by mouth in the morning. 05/02/2025 rOPINIRole (REQUIP) 4 mg TabletIndication s:restless leg syndrome Take 4 mg by mouth nightly. Indications: restless legs syndrome, an extreme discomfort in the calf muscles when sitting or lying down 04/18/2025 traZODone (DESYREL) 300 mg tabletIndication s:sleep Take 300 mg by mouth nightly at bedtime. Indications: sleep 05/03/2025 verapamiL (VERELAN) 180 mg CR capsuleIndicatio ns:hypertension Take 180 mg by mouth daily. Indications: high blood pressure 03/12/2025 Sure Comfort Insulin Syringe 1 mL 29 gauge x /2 Syringe USE DIRECTED 12/14/2024 02 5 documented as of this encounter Plan of Treatment Upcoming Encounters Date Type Department Care Team (Latest Contact Info) Description 07/03/2025 11:10 AM EDT Hospital Encounter Periop B-Level [address] [place] [address] Shaan Day MD [address] [place] [address] 07/03/2025 11:10 AM EDT - 07/03/2025 12:25 PM EDT Surgery Periop B-Level [address] [place] [address] Shaan Day MD [address] [facility] [place] [address] Insertion of hypoglossal nerve stimulator 07/09/2025 8:30 AM EDT Appointment [facility] Physicians - Ear, Nose & Throat, [place] [address] [facility] [address] [place] [address] Shaan Day MD [address] [facility] [place] [address] Scheduled Procedures Name Priority Associated Diagnoses Date/Ti fl IMPLANT HYPOGLOSSAL NERVE STIMULATOR SYSTEM 5 Obstructive sleep apnea 07/03/2025 11:10 AM EDT documented as of this encounter Visit Diagnoses Not on filedocumented in this encounter
--- OUTSIDE RECORDS SUMMARY | 2025-06-05 10:50 | XMS_ITS | Encounter Summary ---
Author Organization [facility] (Formerly [facility])[3] Address [address] [place] [address] Care Team Providers Care Shadowgraph Scale Operator Name Role Phone Tony Hernandez MD Primary Care Provider [phone] Reason for Visit * Auth/Cert Specialty Diagnoses / Procedures Referred By Contac t Referred To Contact Diagnoses Obstructive sleep apnea Obstructive sleep apnea [G47.33] Procedures [place] DISE DYN EVAL SLEEP DISORDERED BREATHING FLX DX Sleep Nasopharyngoscopy Referral ID Status Reason Start Date Expiration Date Visits Re quested Visits Authorized [id number] 1 1 Encounter Details Date Type Department Care Team (Latest Contact Info) Description 06/05/2025 10:50 AM EDT - 06/05/2025 1:58 PM EDT Hospital Encounter [facility] Same Day Surgery [address] [place] [address] Shaan Day MD [address] [place], [place] [address] Obstructive sleep apnea Discharge Disposition: Home or Self Care Social History Tobacco Use Types Packs/Day Years Used Date Smoking Tobacco: Former Cigarettes Passive Smoke Exposure: Never Smokeless Tobacco: Never Alcohol Use Standard Drinks/Week Comments Yes 0 [...] Sign Reading Time Taken Comments Blood Pressure 122/83 06/05/2025 1:39 PM EDT Pulse 55 06/05/2025 1:39 PM EDT Temperature 36.1 C (96.9 F) 06/05/2025 11:16 AM EDT Respiratory Rate 16 06/05/2025 1:39 PM EDT Oxygen Saturation 98% 06/05/2025 1:39 PM EDT Inhaled Oxygen Concentration - - Weight 108.8 kg (239 lb 13.8 oz) 2024 11:16 AM EDT Height 180.3 cm (5' 11 ) 06/05/2025 11: 16 AM EDT Body Mass Index 33.45 06/05/2025 11:16 AM EDT documented in this encounter Discharge Instructions * Discharge Instructions* Ann-Marie Navarrete RN - 06/05/2025 1:00 PM EDT No specific instructions. You appear to be a candidate for inspire! You have had a surgical procedure. During your visit you received sedation medication. Below is a list of guidelines for you to follow for the remainder of the day. Activity: You may experience some light-headedness or dizziness. A responsible person MUST accompany you home. Have someone take care of you for [address] for 24 hours or sign any contracts Diet: If your doctor did not prescribe a special diet, you may start with small amounts of liquids and advance to a regular diet. If nausea or vomiting occurs, do not eat or drink for 2 hours, then progress slowly with liquids. Do NOT consume alcohol, tranquilizers or sleeping pills for 24 hours, unless advised by your doctorto do so. Medications: Unless otherwise told by the surgeon, you may resume your routine medications. If you received a scopolamine patch to prevent nausea, please remove in 24 hours. If you experienceblurred vision or dizziness, remove patch immediately. (Wash hands after removing patch and avoid touching eyes. The ingredient in patch can dilate your eyes.) Constipation is the most frequent and most uncomfortable side effect of the use of pain medications. If untreated, constipation can lead to bowel obstruction and pain. Laxatives, stool softeners and fluids should be taken to avoid constipation. These are commonly available over the counter. The following symptoms maybe expected post anesthesia: Drowsiness Nausea Sore Throat Dry Mouth Notify your surgeon if any of the following symptoms occur: Fever (Greater than 100 degrees F) Chills Shortness of breath or chest pain Hives, rash, or itching Inability to urinate 6 hours post procedure Unrelieved pain Uncontrolled bleeding or discharge documented in this encounter Medications at Time [...] muscles when sitting or lying down 04/18/2025 tadalafiL (Cialis) 5 mg Tablet Take 5 mg by mouth every morning. 05/30/2025 traZODone (DESYREL) 300 mg tabletIndication s:sleep Take 300 mg by mouth nightly at bedtime. Indications: sleep 05/03/2025 verapamiL (VERELAN) 180 mg CR capsuleIndicatio ns:hypertension Take 180 mg by mouth daily. Indications: high blood pressure 03/12/2025 Sure Comfort Insulin Syringe 1 mL 29 gauge x 1/2 Syringe USE DIRECTED 12/14/2024 02 5 documented as of this encounter H&P Notes * Shaan Day MD - 06/05/2025 12:14 PM EDT H&P reviewed. The patient was examined and there are no changes to the H&P. Source Note - Epic, User - 06/04/2025 9:18 AM EDT documented in this encounter Miscellaneous Notes * Op Note - Shaan Day MD - 06/05/2025 12:58 PM EDT [facility] DIVISION OF OTOLARYNGOLOGY- HEAD & NECK SURGERY OPERATIVE REPORT Patient Name: Dani Garland Date: 1955 Billing Number: [id number] Date of Procedure: 06/05/2025 Preoperative Diagnosis: 1) Obstructive sleep apnea with positive pressure intolerance 2) BMI 33.45 Postoperative Diagnosis: Same Procedure: Drug induced sleep endoscopy (flexible fiberoptic laryngoscopy with examination under anesthesia) Surgeon: Shaan Day MD Anesthesia: IV sedation Findings: In summary, there was no evidence of complete concentric palatal obstruction, and the patient does appear to be a candidate anatomically for hypoglossal nerve stimulation therapy. Indications: Dani is a now 69 y.o. male with a history of severe obstructive sleep apnea, who isintolerant and unable to achieve benefit with positive pressure therapy. They presented today for drug-induced sleep endoscopy to better characterize the locations and patterns of obstruction, as well as to predict appropriate medical and/or surgical options moving forward. The risks, benefits, andalternatives to surgery were discussed, and the patient agreed to proceed. Description: The patient came to the operating room and remained on the stretcher. A time out was conducted to identify the correct patient and procedure. Anesthesia was then induced using the standard drug-induced sleep endoscopy protocol. The propofol infusion rate was titrated to mimic sleep conditions. A plane of anesthesia was achieved which allowed obstructive sleep disordered breathing and associated desaturations to occur. Under these conditions, the flexible endoscope was inserted into the nasal cavity in order to evaluate the nasopharynx, oropharynx, and larynx. The nose was relatively unremarkable. Upon visualization of the velopharynx, complete anterior-posterior wall collapse was observed and 50% lateral wall collapse was noted. More distally in the oropharynx, complete AP and partial lateral collapse was observed. In the hypopharynx, the tongue base revealed partial AP collapse and the epiglottis exhibited partial AP collapse. The VOTE score at baseline was the following: Velum: (partial, complete, or none) complete AP with 50% lateral Oropharynx: complete AP with partial lateral Tongue: partial AP Epiglottis: partial AP The patient was then turned back to the care of Anesthesia to recover. The patient tolerated the procedure well and was transferred to the recovery room in stable condition. Specimens: None Estimated Blood Loss: None Complications: None. documented in this encounter Plan of Treatment Upcoming Encounters Date Type Department Care Team (Latest Contact Info) Description 07/03/2025 11:10 AM EDT Hospital Encounter Periop B-Level [address] [place] [address] Shaan Day MD [address] [place] [address] 07/03/2025 11:10 AM EDT - 07/03/2025 12:25 PM EDT Surgery Periop B-Level [address] [place] [address] Shaan Day MD [address] [place] [address] Insertion of hypoglossal nerve stimulator 07/09/2025 8:30 AM EDT Appointment [facility], [place] [address] [address] [place] [address] Shaan Day MD [address] [place] [address] Scheduled Procedures Name Priority Associated Diagnoses Date/Ti me IMPLANT HYPOGLOSSAL NERVE STIMULATOR SYSTEM 5 Obstructive sleep apnea 07/03/2025 11:10 AM EDT documented as of this encounter Procedures Procedure Name Priority Date/Time Associated Diagnosis Comments POC GLU MONITORING DEVICE Routine 06/05/2025 1:15 PM EDT [place] DISE DYN EVAL SLEEP DISORDERED BREATHING FLX DX 06/05/2025 12:44 PM EDT Obstructive sleep apnea POC GLU MONITORING DEVICE Routine 06/05/2025 11:26 AM EDT documented in this encounter Results * POC GLU MONITORING DEVICE (06/05/2025 1:15 PM EDT) POC Glucose Monitoring Device 80 71 - 99 mg/dL [facility] Blood 06/05/2025 1:15 PM EDT 06/05/2025 1:16 PM EDT us Shaan Day MD POINT OF CARE TEST ORDERAB LES Final Result [facility] [address] * POC GLU MONITORING DEVICE (06/05/2025 11:26 AM EDT) POC Glucose Monitoring Device 92 71 - 99 mg/dL [facility] Blood 06/05/2025 11:2 6 AM EDT 06/05/2025 11:32 AM EDT us Shaan Day MD POINT OF CARE TEST ORDERAB LES Final Result Performing Organization Address [facility] Co de Phone Number [facility] [address] documented in this encounter Visit Diagnoses Diagnosis Obstructive sleep apnea- Primary Obstructive sleep apnea (adult) (pediatric) Obstructive sleep apnea Obstructive sleep apnea (adult) (pediatric) Obstructive sleep apnea Obstructive sleep apnea (adult) (pediatric) documented in this encounter Admitting Diagnoses Diagnosis Obstructive sleep apnea Obstructive sleep apnea (adult) (pediatric) documented in this encounter Administered Medications Inactive Administered Medications - up to 3 most recent administrations Medication Order MAR Action Action Date Dose Rate Site acetaminophen (TYLENOL) tablet 1,000 mg 1,000 mg, Oral, PRE-OP ONCE, Starting on Tue06/05/25 at 0000, For 1 dose, Pre-op (day of surgery)Indications:Obstructive sleep apnea Given 06/05/2025 12:08 PM EDT 1,000 mg famotidine (PEPCID) tablet 20 mg 20 mg, Oral, PRE-OP ONCE, Starting on Tue06/05/25 at 0000, For 1 dose, Pre-op (day of surgery)Indications:Obstructive sleep apnea Given 06/05/2025 12:08 PM EDT 20 mg ondansetron (PF) (ZOFRAN) injection 4 mg 4 mg, Intravenous, PRE-OP ONCE, Starting on Tue06/05/25 at 1204, For 1 dose, Pre-op (day of surgery) Given 06/05/2025 12:13 PM EDT 4 mg sodium chloride 0.9% IV solution 1,000 mL, Intravenous, PRE-OP CONTINUOUS, Starting on Tue06/05/25 at 0000, Pre-op (day of surgery)Indications:Obstructive sleep apnea Restarted 06/05/2025 1:00 PM EDT New Bag 06/05/2025 11:32 AM EDT 1,000 mL 125 mL/hr documented in this encounter Active and Recently Administered Medications Times are shown in EDT. Scheduled Medication Order 06/03/2025 06/04/2025 06/05/2025 acetaminophen (TYLENOL) tablet 1,000 mg (COMPLETED) 1,000 mg, Oral, PRE-OP ONCE, Starting on Tue06/05/25 at 0000, For 1 dose, Pre-op (day of surgery) 1208 (Given - Provid er: Katey Regalado RN) famotidine (PEPCID) tablet 20 mg (COMPLETED) 20 mg, Oral, PRE-OP ONCE, Starting on Tue06/05/25 at 0000, For 1 dose, Pre-op (day of surgery) 1208 (Given - Provid er: Katey Regalado RN) ondansetron (PF) (ZOFRAN) injection 4 mg (COMPLETED) 4 mg, Intravenous, PRE-OP ONCE, Starting on Tue06/05/25 at 1204, For 1 dose, Pre-op (day of surgery) 1213 (Given - Provid er: Katey Regalado RN) ondansetron (PF) (ZOFRAN) injection 4 mg 4 mg, Intravenous, PACU MULTIPLE, Starting on Tue06/05/25 at 1311, For 2 doses, PACU Continuous Medication Order 06/03/2025 06/04/2025 06/05/2025 sodium chloride 0.9% IV solution 1,000 mL, Intravenous, PRE-OP CONTINUOUS, Starting on Tue06/05/25 at 0000, Pre-op (day of surgery) 1132 (New Bag - Prov ider: Melisa Padgett RN)1259 (Paused - Provider: CHANTAL Xie - Comment: Switch to gravity)1300 (Restarted - Provider: CHANTAL Xie) sodium chloride 0.9% IV solution 1,000 mL, Intravenous, PACU CONTINUOUS, Starting on Tue06/05/25 at 1415, PACU PRN Medication Order 06/03/2025 06/04/2025 06/05/2025 fentaNYL (Sublimaze) 50 mcg/mL injection 25 mcg 25 mcg, Intravenous, PACU PRN, Other (enter comment), See Administration Instructions, Starting on Tue06/05/25 at 1311, PACU, First choice for pain PACU/SDS only. For pain scale 4-10 give q5min for a maximum of 100 mcg. HYDROmorphone (Dilaudid) 1 mg/mL injection Syrg 0.5 mg 0.5 mg, Intravenous, PACU PRN, Severe Pain Intensity (7-10), Moderate Pain Intensity (4-6), Starting on Tue06/05/25 at 1311, PACU, For pain scale 4 - 10. Second choice for pain PACU/SDS only. Use second choice if allergy to first choice , patient does not tolerate or patient reports history of medication ineffective. Do not alternate between agents. Give every 5 minutes as needed. Maximum dose = 2 mg documented in this encounter Care Teams Shadowgraph Scale Operator Relationship Specialty Start Date End Date Tony Hernandez MD [address] [place] [address] PCP - General Internal Medicine 06/05/25 documented as of this encounter
--- OUTSIDE RECORDS SUMMARY | 2025-06-05 12:47 | XMS_ITS | Encounter Summary ---
Author Organization [facility] Address [address] [place] [address] Care Team Providers Care Logger Name Role Phone Tony Hernandez MD Primary Care Provider [phone] Reason for Visit * Auth/Cert Specialty Diagnoses / Procedures Referred By Contac t Referred To Contact Diagnoses Obstructive sleep apnea Obstructive sleep apnea [G47.33] Procedures MS DISE DYN EVAL SLEEP DISORDERED BREATHING FLX DX Sleep Nasopharyngoscopy Referral ID Status Reason Start Date Expiration Date Visits Re quested Visits Authorized [id number] 1 1 Encounter Details Date Type Department Care Team (Late st Contact Info) Description 06/05/2025 12:47 PM EDT Anesthesia Event Periop B-Level [address] [place] [address] Hamilton Sena MD [address] [place] [address] Jaiden Fernandez CAA [address] [facility]. Level A - [place] [address] Anesthesia Record Procedure Summary Procedure Name Responsible [...] 06/05/2025 12:10 PM EDT Procedure Information Case: [id number] Date/Time: 06/05/25 1250 Procedure: Drug-induced sleep endoscopy [...] AM EDT Hospital Encounter Periop B-Level [address] [place] [address] Shaan Day MD [address] [place] [address] 07/03/2025 11:10 AM EDT - 07/03/2025 12:25 PM EDT Surgery Periop B-Level [address] [place] [address] Shaan Day MD [address] [place] [address] Insertion of hypoglossal nerve stimulator 07/09/2025 8:30 AM EDT Appointment [facility] Physicians - Ear, Nose & Throat, [place] [address] [facility] [address] [place] [address] Shaan Day MD [address] [facility] [place] [address] Scheduled Procedures Name Priority Associated Diagnoses Date/Ti [...] mL/hr documented in this encounter Care Teams Logger Relationship Specialty Start Date End Date Tony Hernandez MD [address] [place] [address] PCP - General Internal Medicine 06/05/25 documented as of this encounter
--- OUTSIDE RECORDS SUMMARY | 2025-06-05 12:50 | XMS_ITS | Encounter Summary ---
Author Organization [facility] Address [address] [place] [address] Care Team Providers Care Electrician Manager Name Role Phone Tony Hernandez MD Primary Care Provider [phone] Reason for Visit * Auth/Cert Specialty Diagnoses / Procedures Referred By Contac t Referred To Contact Diagnoses Obstructive sleep apnea Obstructive sleep apnea [G47.33] Procedures [place] DISE DYN EVAL SLEEP DISORDERED BREATHING FLX DX Sleep Nasopharyngoscopy Referral ID Status Reason Start Date Expiration Date Visits Re quested Visits Authorized [id number] 1 1 Encounter Details Date Type Department Care Team (Late st Contact Info) Description 06/05/2025 12:50 PM EDT - 06/05/2025 1:20 PM EDT Surgery Periop B-Level [address] [place] [address] Shaan Day MD [address] [place] [address] Drug-induced sleep endoscopy Social History Tobacco Use [...] MD - 06/05/2025 12:58 PM EDT [facility] DIVISION OF OTOLARYNGOLOGY- HEAD & NECK SURGERY OPERATIVE REPORT Patient Name: Dani Garland Date: 1955 Billing Number: [id number] Date of Procedure: 06/05/2025 Preoperative Diagnosis: 1) [...] AM EDT Hospital Encounter Periop B-Level [address] [place] [address] Shaan Day MD [address] [place] [address] 07/03/2025 11:10 AM EDT - 07/03/2025 12:25 PM EDT Surgery Periop B-Level [address] [place] [address] Shaan Day MD [address] [place] [address] Insertion of hypoglossal nerve stimulator 07/09/2025 8:30 AM EDT Appointment [facility] - Ear, Nose & Throat, [place] [address] [facility] [address] [place] [address] Shaan Day MD [address] [facility] [place] [address] Scheduled Procedures Name Priority Associated Diagnoses Date/Ti me IMPLANT HYPOGLOSSAL NERVE STIMULATOR SYSTEM 5 Obstructive sleep apnea 07/03/2025 11:10 AM EDT documented as of this encounter Procedures Procedure Name Priority Date/Time Associated Diagnosis Comments POC GLU MONITORING DEVICE Routine 06/05/2025 1:15 PM EDT HI DISE DYN EVAL SLEEP DISORDERED BREATHING FLX DX 06/05/2025 12:44 PM EDT Obstructive sleep apnea POC GLU MONITORING DEVICE Routine 06/05/2025 11:26 AM EDT documented in this encounter Results * POC GLU MONITORING DEVICE (06/05/2025 1:15 PM EDT) POC Glucose Monitoring Device 80 71 - 99 mg/dL [facility] Blood 06/05/2025 1:15 PM EDT 06/05/2025 1:16 PM EDT us Shaan Day MD POINT OF CARE TEST ORDERAB LES Final Result [facility] [address] * POC GLU MONITORING DEVICE (06/05/2025 11:26 AM EDT) POC Glucose Monitoring Device 92 71 - 99 mg/dL [facility] Blood 06/05/2025 11:2 6 AM EDT 06/05/2025 11:32 AM EDT us Shaan Day MD POINT OF CARE TEST ORDERAB LES Final Result [facility] [address] documented in this encounter Visit Diagnoses [...] mg documented in this encounter Care Teams Electrician Manager Relationship Specialty Start Date End Date Tony Hernandez MD [address] [place] [address] PCP - General Internal Medicine 06/05/25 documented as of this encounter
--- OUTSIDE RECORDS SUMMARY | 2025-06-18 09:20 | XMS_ITS | Encounter Summary ---
Author Organization [facility] Address [address] [place] [address] Care Team Providers Care Wet End Helper Name Role Phone Tony Hernandez MD Primary Care Provider Reason for Visit * Reason Comments Follow-up Discuss Inspire no n ew issues Encounter Details Date Type Department Care Team (Latest Contact Info) Description 06/18/2025 9:20 AM EDT Office Visit [facility] Physicians - Ear, Nose & Throat, [place] [address] [facility] [address] [place] [address] Shaan Day MD [address] [address] Obstructive sleep apnea (Primary Dx); BMI [...] MD - 06/18/2025 9:20 AM EDT [facility] [place] DEPARTMENT OF OTOLARYNGOLOGY- HEAD & NECK SURGERY [...] AM EDT Hospital Encounter Periop B-Level [address] [place] [address] Shaan Day MD [address] [facility] [address] 07/03/2025 11:10 AM EDT - 07/03/2025 12:25 PM EDT Surgery Periop B-Level [address] [place] [address] Shaan Day MD [address] [facility] [address] Insertion of hypoglossal nerve stimulator 07/09/2025 8:30 AM EDT Appointment [facility] Physicians - Ear, Nose & Throat, [place] [address] [facility] [address] [place] [address] Shaan Day MD [address] [facility] [address] [address] Scheduled Procedures Name Priority Associated Diagnoses Date/Ti me IMPLANT HYPOGLOSSAL NERVE STIMULATOR SYSTEM 5 Obstructive sleep apnea 07/03/2025 11:10 AM EDT documented as of this encounter Visit Diagnoses Diagnosis Obstructive sleep apnea- Primary Obstructive sleep apnea (adult) (pediatric) BMI 33.0-33.9,adult Body Mass Index 33.0-33.9, adult History of anticoagulant use Obstructive sleep apnea Obstructive sleep apnea (adult) (pediatric) documented in this encounter Care Teams Wet End Helper Relationship Specialty Start Date End Date Tony Hernandez MD [address] [place] [address] PCP - General Internal Medicine 06/05/25 documented as of this encounter
--- OUTSIDE RECORDS SUMMARY | 2025-06-26 12:15 | XMS_ITS | Encounter Summary ---
Author Organization [facility] Address [address] [place] [address] Care Team Providers Care Dye House Worker Name Role Phone Tony Hernandez MD Primary Care Provider [phone] Encounter Details Date Type Department Care Team (Latest Contact Info) Description 06/26/2025 12:15 PM EDT - 06/26/2025 11:59 PM EDT Hospital Encounter PRE SURGICAL TESTING [phone] Discharge Disposition: Home or Self Care Social History Tobacco Use Types Packs/Day Years Used Date Smoking Tobacco: Former Cigarettes Passive Smoke Exposure: Past Smokeless Tobacco: Former Alcohol Use Standard Drinks/Week Comments Yes 0 (1 standard drink = 0.6 oz pur e alcohol) 5/wk Sex and Gender Information Value Date Recorded [...] - - Weight 108.4 kg (239 lb) 06/26/2025 12:16 PM EDT Height 180.3 cm (5' 11 ) 06/26/2025 12:16 PM EDT Body Mass Index 33.33 06/26/2025 12:16 PM EDT documented in this encounter Medications at Time of Discharge aspirin 325 mg Tablet, Delayed Release (E.C.) Take 325 mg by mouth in the morning. atorvastatin (LIPITOR) 40 mg TabletIndication s:hypercholester olemia [...] Take 10 mg by mouth daily. 05/14/2025 fluticasone propionate (FLONASE) 50 mcg/actuation nasal spray [place] 1 [place] into nose in the morning. 06/11/2025 gabapentin (NEURONTIN) 100 mg capsule Take 100 [...] mouth daily. Indications: high blood pressure 03/12/2025 documented as of this encounter Plan of Treatment Upcoming Encounters Date Type Department Care Team (Latest Contact Info) Description 07/03/2025 11:10 AM EDT Hospital Encounter Periop B-Level [address] [place] [address] Shaan Day MD [address] [facility] [address] [place] [address] 07/03/2025 11:10 AM EDT - 07/03/2025 12:25 PM EDT Surgery Periop B-Level [address] [place] [address] Shaan Day MD [address] [facility] [place] [address] Insertion of hypoglossal nerve stimulator 07/09/2025 8:30 AM EDT Appointment The [facility] Physicians - Ear, Nose & Throat, [place] [address] [facility] [address] [place] [address] Shaan Day MD [address] [facility] [place] [address] Scheduled Procedures Name Priority Associated Diagnoses Date/Ti me IMPLANT HYPOGLOSSAL NERVE STIMULATOR SYSTEM 5 Obstructive sleep apnea 07/03/2025 11:10 AM EDT documented as of this encounter Visit Diagnoses Not on filedocumented in this encounter Care Teams Dye House Worker Relationship Specialty Start Date End Date Tony Hernandez MD [address] [place] [address] PCP - General Internal Medicine 06/05/25 documented as of this encounter
--- OUTSIDE RECORDS SUMMARY | 2025-06-27 12:26 | XMS_ITS | Encounter Summary ---
Author Organization [facility] Address [address] [place] [address] Care Team Providers Care Harbour Master Name Role Phone Unavailable Primary Care Provider Unavailabl e Reason for Visit * Reason Onset Date Comments Other 05/29/2025 History and Phys ical schedule and how to get it to [facility] Encounter Details Date Type Department Care Team (Late st Contact Info) Description 05/29/[address] [facility] Physicians - Ear, Nose & Throat, [address] [place] [address] Meghna Solis RN Other (History and Physical schedule and how to get it to [facility]) Social History Tobacco Use Types Packs/Day Years [...] AM EDT documented as of this encounter Miscellaneous Notes * Telephone Encounter - Meghna Solis RN - 05/29/2025 2:54 PM EDT Patient called and he communicated he will be doing the H&P tomorrow. I will send him our fax number so this is scanned into [facility]. documented in this encounter Plan of Treatment Upcoming Encounters Date Type Department Care Team (Latest Contact Info) Description 07/03/2025 11:10 AM EDT Hospital Encounter Periop B-Level [address] [place] [address] Shaan Day MD [address] [place] [address] 07/03/2025 11:10 AM EDT - 07/03/2025 12:25 PM EDT Surgery Periop B-Level [address] [place] [address] Shaan Day MD [address] [facility] [place] [address] Insertion of hypoglossal nerve stimulator 07/09/2025 8:30 AM EDT Appointment [facility] Physicians - Ear, Nose & Throat, [address] [place] [address] Shaan Day MD [address] [facility] [place] [address] Scheduled Procedures Name Priority Associated Diagnoses Date/Ti me IMPLANT HYPOGLOSSAL NERVE STIMULATOR SYSTEM 5 Obstructive sleep apnea 07/03/2025 11:10 AM EDT documented as of this encounter Visit Diagnoses Not on filedocumented in this encounter
--- OUTSIDE RECORDS SUMMARY | 2025-06-27 12:26 | XMS_ITS | Clinical Summary ---
Author Organization [facility] Address [address] [place] [address] Care Team Providers Care Bus Attendant Name Role Phone Mamadou Ross MD Primary Care Provider [phone] Allergies No known active allergies Medications oxyCODONE-acetam [...] (1 year) 2002 AAA SCREEN ONCE 2022 ANNUAL PHYSICAL 10/12/2024 HEPATITIS C SCREENING 10/12/2024 INFLUENZA VACCINE 05/03/2025 07/06/2023, , 07/24/2020, Additional history exists COVID-19 Vaccine (2024-2 6 season) 2025 05/21/2022, 07/29/2021, 12/10/2020 TDAP/TD VACCINES (4 - Td or Tdap) 03/25/2033 03/25/2023, 02/07/2023, 12/08/1996 Pneumococcal Vaccine 50+ Completed 09/03/2022 ZOSTER VACCINE Completed 03/25/2023, 08/02/2022 Insurance [employer] Care Teams Bus Attendant Relationship Specialty Start Date End Date Mamadou Ross MD [address] [facility] [address] [place] [address] PCP - General General Surgery 04/16/16
--- OUTSIDE RECORDS SUMMARY | 2025-06-27 12:26 | XMS_ITS | Encounter Summary ---
Author Organization [facility] Address [address] [place] [address] Care Team Providers Care Industrial Safety Engineer Name Role Phone Unavailable Primary Care Provider Unavailabl e Reason for Visit * Reason Onset Date Comments Questions 05/29/2025 Encounter Details Date Type Department Care Team (Late st Contact Info) Description 05/29/2025 Telephone [facility] Physicians - Ear, Nose & Throat, [place] [address] [facility] [address] [place] [address] Shaan Day MD [address] [place] [address] Questions Social History Tobacco Use Types Packs/Day Years [...] encounter Miscellaneous Notes * Telephone Encounter - Modesta Rachel RN - 05/29/2025 1:31 PM EDT Spoke with pt. He is seeing his assembler dc field ring, Dr. Shaan Powers today. His last EKG was in April 2025. He has a cardiac clearance letter. Dr. Powers has advised stopping his Plavix 5 days before surgery. documented in this encounter Plan of Treatment Upcoming Encounters Date Type Department Care Team (Latest Contact Info) Description 07/03/2025 11:10 AM EDT Hospital Encounter Periop B-Level [address] [place] [address] Shaan Day MD [address] [place] [address] 07/03/2025 11:10 AM EDT - 07/03/2025 12:25 PM EDT Surgery Periop B-Level [address] [place] [address] Shaan Day MD [address] [facility] [place] [address] Insertion of hypoglossal nerve stimulator 07/09/2025 8:30 AM EDT Appointment [facility] Physicians - Ear, Nose & Throat, [place] [address] [facility] [address] [place] [address] Shaan Day MD [address] [facility] [place] [address] Scheduled Procedures Name Priority Associated Diagnoses Date/Ti me IMPLANT HYPOGLOSSAL NERVE STIMULATOR SYSTEM 5 Obstructive sleep apnea 07/03/2025 11:10 AM EDT documented as of this encounter Visit Diagnoses Not on filedocumented in this encounter
--- OUTSIDE RECORDS SUMMARY | 2025-06-27 12:26 | XMS_ITS | Encounter Summary ---
Author Organization The Address [address] [place] [address] Care Team Providers Care Relations Liaison Name Role Phone Tony Hernandez MD Primary Care Provider [phone] Encounter Details Date Type Department Care Team (Latest Contact Info) Description 06/18/2025 Preop Surgical Orders The Physicians - Ear, Nose & Throat, [place] [address] [facility] [address] [place] [address] Shaan Day MD [address] [place] [address] Obstructive sleep apnea (Primary Dx) Social History Tobacco Use Types Packs/Day Years [...] as of this encounter Miscellaneous Notes * Addendum Note - Néstor Rachel RN - 06/18/2025 1:25 PM EDTAddended by: NÉSTOR PRADHAN on: 2025 08:29 AM Modules accepted: Orders documented in this encounter Plan of Treatment Upcoming Encounters Date Type Department Care Team (Latest Contact Info) Description 07/03/2025 11:10 AM EDT Hospital Encounter Periop B-Level [address] [place] [address] Shaan Day MD [address] [facility] [place] [address] 07/03/2025 11:10 AM EDT - 07/03/2025 12:25 PM EDT Surgery Periop B-Level [address] [place] [address] Shaan Day MD [address] [facility] [place] [address] Insertion of hypoglossal nerve stimulator 07/09/2025 8:30 AM EDT Appointment The Physicians - Ear, Nose & Throat, [address] [place] [address] Shaan Day MD [address] [facility] [place] [address] Scheduled Procedures Name Priority Associated Diagnoses Date/Ti me IMPLANT HYPOGLOSSAL NERVE STIMULATOR SYSTEM 5 Obstructive sleep apnea 07/03/2025 11:10 AM EDT documented as of this encounter Visit Diagnoses Diagnosis Obstructive sleep apnea- Primary Obstructive sleep apnea (adult) (pediatric) Obstructive sleep apnea- Primary Obstructive sleep apnea (adult) (pediatric) Obstructive sleep apnea Obstructive sleep apnea (adult) (pediatric) documented in this encounter Care Teams Relations Liaison Relationship Specialty Start Date End Date oTny Hernandez MD [address] [place] [address] PCP - General Internal Medicine 06/05/25 documented as of this encounter
--- OUTSIDE RECORDS SUMMARY | 2025-06-27 12:26 | XMS_ITS | Encounter Summary ---
Author Organization [facility] Address [address] [place] [address] Care Team Providers Care Internal Affairs Commander Name Role Phone Tony Hernandez MD Primary Care Provider [phone] Reason for Visit * Reason Onset Date Comments Prior Authorization 06/06/2025 Encounter Details Date Type Department Care Team (Late st Contact Info) Description 06/06/2025 Telephone [facility] Physicians - Ear, Nose & Throat, [place] [address] [place] [phone] Shaan Day MD [address] [place] [address] Prior Authorization Social History Tobacco Use Types Packs/Day Years [...] Telephone Encounter - Modesta Rachel RN - 06/06/2025 9:38 AM EDT Started PA rene Ceballos documented in this encounter Plan of Treatment Upcoming Encounters Date Type Department Care Team (Latest Contact Info) Description 07/03/2025 11:10 AM EDT Hospital Encounter Periop B-Level [address] [place] [address] Shaan Day MD [address] [facility] [place] [address] 07/03/2025 11:10 AM EDT - 07/03/2025 12:25 PM EDT Surgery Periop B-Level [address] [place] [address] Shaan Day MD [address] [facility] [place] [address] Insertion of hypoglossal nerve stimulator 07/09/2025 8:30 AM EDT Appoint[address] [facility] Physicians - Ear, Nose & Throat, [address] [place] [address] Shaan Day MD [address] [facility] [place] [address] Scheduled Procedures Name Priority Associated Diagnoses Date/Ti me IMPLANT HYPOGLOSSAL NERVE STIMULATOR SYSTEM 5 Obstructive sleep apnea 07/03/2025 11:10 AM EDT documented as of this encounter Visit Diagnoses Not on filedocumented in this encounter Care Teams Internal Affairs Commander Relationship Specialty Start Date End Date Tony Hernandez MD [address] [place] [address] PCP - General Internal Medicine 06/05/25 documented as of this encounter
--- OUTSIDE RECORDS SUMMARY | 2025-06-27 12:26 | XMS_ITS | Encounter Summary ---
Author Organization [facility] Address [address] [place] [address] Care Team Providers Care Pillowcase Cleaner Name Role Phone Tony Hernandez MD Primary Care Provider Encounter Details Date Type Department Care Team (Latest Contact Info) Description 06/05/2025 Travel Social History Tobacco Use Types Packs/Day Years [...] AM EDT documented as of this encounter Plan of Treatment Upcoming Encounters Date Type Department Care Team (Latest Contact Info) Description 07/03/2025 11:10 AM EDT Hospital Encounter Periop B-Level [address] [place] [address] Shaan Day MD [address] [place] [address] 07/03/2025 11:10 AM EDT - 07/03/2025 12:25 PM EDT Surgery Periop B-Level [address] [place] [address] Shaan Day MD [address] [place] [address] Insertion of hypoglossal nerve stimulator 07/09/2025 8:30 AM EDT Appointment [facility] Physicians - Ear, Nose & Throat, [place] [address] [facility] [address] [place] [address] Shaan Day MD [address] [place] [address] Scheduled Procedures Name Priority Associated Diagnoses Date/Ti me IMPLANT HYPOGLOSSAL NERVE STIMULATOR SYSTEM 5 Obstructive sleep apnea 07/03/2025 11:10 AM EDT documented as of this encounter Visit Diagnoses Not on filedocumented in this encounter Care Teams Pillowcase Cleaner Relationship Specialty Start Date End Date Tony Hernandez MD [address] [place] [address] PCP - General Internal Medicine 06/05/25 documented as of this encounter
--- OUTSIDE RECORDS SUMMARY | 2025-06-27 12:26 | XMS_ITS | Clinical Summary ---
Author Organization [facility] Address [address] [place] [address] Care Team Providers Care Slitter Scorer Cut Off Operator Name Role Phone Tony Hernandez MD Primary Care Provider [phone] Allergies Active Allergy Reactions Criticality Noted Date Comments Isosorbide 05/29/2025 Severe migraines Medications atorvastatin (LIPITOR) 40 mg TabletIndicati ons:hyperchole sterolemia Take 40 mg by mouth nightly at bedtime. Indications: high cholesterol 02/06/20 25 Active clopidogreL (PLAVIX) 75 mg tablet Take 75 mg by mouth daily. 05/14/20 25 Active colestipoL (COLESTID) 1 gram tablet Take 2 g by mouth 2 times daily. 04/29/20 25 Active Farxiga 10 mg Tablet tablet Take 10 mg by mouth daily. 05/14/20 25 Active divalproex (DEPAKOTE) 500 mg Tablet, Delayed Release (E.C.)Indicati ons:seizure disorder Take 500 mg by mouth in the morning and 500 mg before bedtime. Indications: seizure disorder. 03/13/20 25 Active gabapentin (NEURONTIN) 100 mg capsule Take 100 mg by mouth. 1tab in am and 4 tabs at night 03/12/20 25 Active losartan (COZAAR) 25 mg Tablet Take 25 mg by mouth daily. 05/14/20 25 Active metoprolol succinate (TOPROL) 25 mg XL tablet Take 25 mg by mouth in the morning. 04/16/20 25 Active pantoprazole (PROTONIX) 40 mg Tablet, Delayed Release (E.C.) Take 40 mg by mouth in the morning. 05/02/20 Active rOPINIRole (REQUIP) 4 mg TabletIndicati ons:restless leg syndrome Take 4 mg by mouth nightly. Indications: restless legs syndrome, an extreme discomfort in the calf muscles when sitting or lying down 04/18/20 Active Ozempic 1 mg/dose (4 mg/3 mL) Pen InjectorIndica tions:type 2 diabetes mellitus,weigh t loss management for obese patient (bmi >= 30) 1 mg by Subcutaneous route every Tuesday. Indications: type 2 diabetes mellitus, weight loss management for a person with obesity 05/02/20 Active traZODone (DESYREL) 300 mg tabletIndicati ons:sleep Take 300 mg by mouth nightly at bedtime. Indications: sleep 05/03/20 Active verapamiL (VERELAN) 180 mg CR capsuleIndicat ions:hypertens ion Take 180 mg by mouth daily. Indications: high blood pressure 03/12/20 Active magnesium oxide (MAG-OX) 400 mg (241.3 mg magnesium) tabletIndicati ons:hypomagnes emia Take 400 mg by mouth daily. Indications: low amount of magnesium in the blood Active omeprazole (PriLOSEC) 40 mg Capsule, Delayed Release(E.C.) Take 40 mg by mouth in the morning. Active fluticasone propionate (FLONASE) 50 mcg/actuation nasal spray Korbel 1 Korbel into nose in the morning. 06/11/20 Active tadalafiL (Cialis) 5 mg Tablet Take 5 mg by mouth every morning. 05/30/20 Active aspirin 325 mg Tablet, Delayed Release (E.C.) Take 325 mg by mouth in the morning. Active isosorbide mononitrate (IMDUR) 30 mg CR tablet Take 30 mg by mouth daily. 05/02/20 25 2024 Discontinued(T herapy Completed) Sure Comfort Insulin Syringe 1 mL 29 gauge x 1/2 Syringe USE DIRECTED 12/15/19 25 2024 Discontinued Active Problems Problem Noted Date Diagnosed Date Obstructive sleep apnea 05/14/2025 Encounters Date Type Department Care Team Description 06/26/2025 12:15 PM EDT - 06/26/2025 11:59 PM EDT Hospital Encounter PRE SURGICAL TESTING [phone] Discharge Disposition: Home or Self Care 06/18/2025 9:20 AM EDT Office [facility] [address] [facility] [address] [address] [place] [address] Shaan Day MD Obstructive sleep apnea (Primary Dx); BMI 33.0-33.9,adult; History of anticoagulant use 06/18/2025 Preop Surgical Orders [facility] [address] [facility] [address] [address] [place] [address] Shaan Day MD Obstructive sleep apnea (Primary Dx) 06/17/2025 Telephone [facility] Ear, Nose & Throat[address] [place] [address] Shaan Day MD Prior Authorization 06/06/2025 Telephone [facility], Nose & [address] [place] [address] Shaan Day MD Prior Authorization 06/05/2025 12:50 PM EDT - 06/05/2025 1:20 PM EDT Surgery Periop B-Level [address] [place] [address] Shaan Day MD Drug-induced sleep endoscopy 06/05/2025 12:47 PM EDT Anesthesia Event Periop B-Level [address] [place] [address] Hamilton Sena MD [place], Joshua P., [facility] 06/05/2025 10:50 AM EDT - 06/05/2025 1:58 PM EDT Hospital Encounter B-Level Outpatient Center Same Day Surgery [address] [place] [address] Shaan Day MD Obstructive sleep apnea Discharge Disposition: Home or Self Care 06/05/2025 Travel 05/31/2025 Telephone [facility] Ear, Nose & Throat, [address] [place] [phone] Meghna oSlis RN Follow-up (On needed information for upcoming procedure) 05/29/2025 10:00 AM EDT - 05/29/2025 11:59 PM EDT Hospital Encounter PRE SURGICAL TESTING [phone] Discharge Disposition: Home or Self Care 05/29/2025 Telephone [facility] Ear, Nose & Throat, [address] [place] [phone] Meghna Solis RN Other (History and Physical schedule and how to get it to [facility]) 05/29/2025 Telephone [facility] [place] [address] [facility] [facility] [address] [place] [address] Shaan Day MD Questions 05/14/2025 1:30 PM EDT Office Visit [facility] [place] [address] [facility] [address] [place] [address] Shaan Day MD MAYDA (obstructive sleep apnea) (Primary Dx); BMI 33.0-33.9,adult 05/14/2025 Preop Surgical Orders [facility], Nose & Throat[address] [place] [address] Shaan Day MD Obstructive sleep apnea (Primary Dx) 05/08/2025 Telephone [facility] Ear, Nose & Throat, [address] [place] [phone] Meghna Solis RN Scheduling from Last 3 Months Family History Medical History Relation Name Comments Heart Problems Father [place] Stroke Father Heart Problems Maternal Uncle High Blood Pressure Sister Anesthesia Complications Neg Hx Relation Name Status Comments Father Maternal Uncle Mother Sister Social History Tobacco Use Types Packs/Day Years [...] Orientation Straight 05/10/2025 9: 56 AM EDT Last Filed Vital Signs Vital Sign Reading Time Taken Comments Blood Pressure 122/83 06/05/2025 1:39 PM EDT Pulse 55 06/05/2025 1:39 PM EDT Temperature 36.1 C (96.9 F) 06/05/2025 11:16 AM EDT Respiratory Rate 16 06/05/2025 1:39 PM EDT Oxygen Saturation 98% 06/05/2025 1:39 PM EDT Inhaled Oxygen Concentration - - Weight 108.4 kg (239 lb) 06/26/2025 12:16 PM EDT Height 180.3 cm (5' 11 ) 06/26/2025 12:16 PM EDT Body Mass Index 33.33 06/26/2025 12:16 PM EDT Plan of Treatment Upcoming Encounters Date Type Department Care Team (Latest Contact Info) Description 07/03/2025 11:10 AM EDT Hospital Encounter Periop B-Level [address] [place] [address] Shaan Day MD [address] [place] [address] 07/03/2025 11:10 AM EDT - 07/03/2025 12:25 PM EDT Surgery Periop B-Level [address] [place] [address] Shaan Day MD [address] [place] [address] Insertion of hypoglossal nerve stimulator 07/09/2025 8:30 AM EDT Appointment [facility] Physicians - Ear, Nose & Throat, [place] [address] [facility] [address] [place] [address] Shaan Day MD [address] [place] [address] Scheduled Procedures Name Priority Associated Diagnoses Date/Ti me IMPLANT HYPOGLOSSAL NERVE STIMULATOR SYSTEM 5 Obstructive sleep apnea 07/03/2025 11:10 AM EDT Health Maintenance Due Date Last Done Comments Cologuard 1957 Colonoscopy 1957 Colorectal Cancer Screening 1957 FIT 1957 Lipid Monitoring 1974 Hepatitis C Virus (HCV) Screening 1978 Pneumococcal Vaccine: 50+ Ye ars (1 of 1 - PCV) 2007 RSV Vaccines (1 - Risk 60-74 years 1-dose series) 2017 Fall Risk Assessment 2022 Advance Care Planning 10/03/2024 BMI Counseling 10/03/2024 Depression Screening 10/03/2024 COVID-19 Vaccine (4 - 2024-2 6 season) 2025 05/21/2022, 07/29/2021, 12/10/2020 Influenza Vaccination (#1) 06/03/202507/24, 06/29/2019, 09/14/2017, Additional history exists Tetanus Vaccination (Every 1 0 Years) 03/25/2033 03/25/2023, 02/07/2023 Zoster-RZV(Shingrix) Completed 03/25/2023, 08/02/20 22 Medical Devices Implanted Type Area Car Mover Device Identifier Shelf Expiration Date Model / Serial / Lot Spinal Cord Stimulator Implant Back Nerve stimulator Spinal Cord Stimulator Spine Lumbar Procedures Procedure Name Priority Date/Time Associated Diagnosis Comments POC GLU MONITORING DEVICE Routine 06/05/2025 1:15 PM EDT AL DISE DYN EVAL SLEEP DISORDERED BREATHING FLX DX 06/05/2025 12:44 PM EDT Obstructive sleep apnea POC GLU MONITORING DEVICE Routine 06/05/2025 11:26 AM EDT from Last 3 Months Results * POC GLU MONITORING DEVICE (06/05/2025 1:15 PM EDT) Only the most recent of2 resultswithin the time period is included. POC Glucose Monitoring Device 80 71 - 99 mg/dL [facility] Blood 06/05/2025 1:15 PM EDT 06/05/2025 1:16 PM EDT us Shaan Day MD POINT OF CARE TEST ORDERAB LES Final Result [facility] [address] [place] [address], [facility] from Last 3 Months Insurance MEDICARE Care Teams Slitter Scorer Cut Off Operator Relationship Specialty Start Date End Date Tony Hernandez MD [address] [place] [address] PCP - General Internal Medicine 06/05/25
--- OUTSIDE RECORDS SUMMARY | 2025-06-27 12:26 | XMS_ITS | Encounter Summary ---
Author Organization [facility] Address [address] [place] [address] Care Team Providers Care Broach Operator Name Role Phone Unavailable Primary Care Provider Unavailabl e Reason for Visit * Reason Onset Date Comments Scheduling 05/08/2025 Encounter Details Date Type Department Care Team (Late st Contact Info) Description 05/08/2025 Telephone [facility] Physicians - Ear, Nose & Throat, [address] [place] [phone] Meghna Solis, RN Scheduling Social History Tobacco Use Types Packs/Day Years Used Date Smoking Tobacco: Never Assessed Sex and Gender Information Value Date Recorded Sex Assigned at Male 05/10/2025 9:56 AM EDT Legal Sex Male 2:00 PM EDT Gender Identity Male 05/10/2025 9:56 AM EDT Sexual Orientation Straight 05/10/2025 9: 56 AM EDT documented as of this encounter Miscellaneous Notes * Telephone Encounter - Meghna Solis, RN - 05/09/2025 10:31 AM EDT I have contacted the patient and have introduced myself as the nurse navigator for the hypoglossal nerve stimulator surgery for Obstructive Sleep Apnea. Sleep Study is in media and AHI is 38.2 and current BMI was 36Patient made aware of weight loss to 235 = a BMI of 34.7. I reviewed with the patient the criteria for surgery , a BMI less than 32-35 dependent upon their anatomy and neck structure; and a failed trial of using CPAP. We discussed that CPAP is the gold standard and reduces the apnea the best, and Inspire is for those who do not tolerate CPAP. I reviewed with the patient the processinvolved in obtaining this therapy. We discussed the need to do a drug induced sleep evaluation to ensure their airway occludes in the tongue falling backwards and not a concentric airway collapse. If there is not concentric collapse the patient is a candidate. All information is then submitted to the patient's insurance company. Surgery is scheduled when approval is obtained. Patient returns to see the physician who has done the surgery in one week. A month later they meet with sleep and the de vice is activated. I am sending him by email since he does not have a Causest setup his [employer] and this is scanned into media. Scheduled with Dr. Day for 05/14 at [address] location. * Telephone Encounter - Meghna Solis RN - 05/08/2025 2:16 PM EDT Received a referral packet from Sleep Management. I have started registration process with paperwork provided and I left a Vm for the patient to call me at [phone]. BMI at time of last appointment was 35.72. AHI scored at 4 % 38.3.Central apnea 0.2 for an index. documented in this encounter Plan of Treatment Upcoming Encounters Date Type Department Care Team (Latest Contact Info) Description 07/03/2025 11:10 AM EDT Hospital Encounter Periop B-Level [address] [place] [address] Shaan Day MD [address] [place] [address] 07/03/2025 11:10 AM EDT - 07/03/2025 12:25 PM EDT Surgery Periop B-Level [address] [place] [address] Shaan Day MD [address] [place] [address] Insertion of hypoglossal nerve stimulator 07/09/2025 8:30 AM EDT Appointment [facility] Physicians - Ear, Nose & Throat, [place] [address] [facility] [address] [place] [address] Shaan Day MD [address] [facility] [place] [address] Scheduled Procedures Name Priority Associated Diagnoses Date/Ti me IMPLANT HYPOGLOSSAL NERVE STIMULATOR SYSTEM 5 Obstructive sleep apnea 07/03/2025 11:10 AM EDT documented as of this encounter Visit Diagnoses Not on filedocumented in this encounter
--- OUTSIDE RECORDS SUMMARY | 2025-06-27 12:26 | XMS_ITS | Encounter Summary ---
Author Organization [facility] Address [address] [place] [address] Care Team Providers Care Flooring Installer Name Role Phone Unavailable Primary Care Provider Unavailabl e Encounter Details Date Type Department Care Team (Latest Contact Info) Description 05/14/2025 Preop Surgical Orders [facility] Physicians - Ear, Nose & Throat, [place] [address] [facility] [address] [place] [address] Shaan Day MD [address] [place] [address] Obstructive sleep apnea (Primary Dx) [...] 11:10 AM EDT Hospital Encounter Periop B-Level [address] [place], [place] [address] Shaan Day MD [address] [place] [address] 07/03/2025 11:10 AM EDT - 07/03/2025 12:25 PM EDT Surgery Periop B-Level [address] [place] [address] Shaan Day MD [address] [facility] [place] [address] Insertion of hypoglossal nerve stimulator 07/09/2025 8:30 AM EDT Appointment [facility] Physicians - Ear, Nose & Throat, [place] [address] [facility] [address] [place] [address] Shaan Day MD [address] [facility] [address] [place] [address] Scheduled Procedures Name Priority Associated Diagnoses Date/Ti me IMPLANT HYPOGLOSSAL NERVE STIMULATOR SYSTEM 5 Obstructive sleep apnea 07/03/2025 11:10 AM EDT documented as of this encounter Visit Diagnoses Diagnosis Obstructive sleep apnea- Primary Obstructive sleep apnea (adult) (pediatric) Obstructive sleep apnea Obstructive sleep apnea (adult) (pediatric) documented in this encounter
--- OUTSIDE RECORDS SUMMARY | 2025-06-27 12:26 | XMS_ITS | Encounter Summary ---
Author Organization [facility] Address [address] [place] [address] Care Team Providers Care Academic Success Coordinator Name Role Phone Tony Hernandez MD Primary Care Provider [phone] Reason for Visit * Reason Onset Date Comments Prior Authorization 06/17/2025 Encounter Details Date Type Department Care Team (Late st Contact Info) Description 06/17/2025 Telephone [facility] Physicians - Ear, Nose & Throat, [place] [address] [place] [phone] Shaan Day MD [address] [place] [address] Prior Authorization Social History Tobacco [...] Telephone Encounter - Modesta Rachel RN - 06/17/2025 9:04 AM EDT [facility]: Auth ref# [id number] Codes: 46142, C1787, [id number] Codes: K4558-Cj auth required DX: G47.33 DOS: 06/10/2025-12/28/2025 Facility Name: [facility] documented in this encounter Plan of Treatment Upcoming Encounters Date Type Department Care Team (Latest Contact Info) Description 07/03/2025 11:10 AM EDT Hospital Encounter Periop B-Level [address] [place] [address] Shaan Day MD [address] [place] [address] 07/03/2025 11:10 AM EDT - 07/03/2025 12:25 PM EDT Surgery Periop B-Level [address] [place] [address] Shaan Day MD [address] [place] [address] Insertion of hypoglossal nerve stimulator 07/09/2025 8:30 AM EDT Appointment [facility] Physicians - Ear, Nose & Throat, [address] [place] [address] Shaan Day MD [address] [facility] [place] [address] Scheduled Procedures Name Priority Associated Diagnoses Date/Ti me IMPLANT HYPOGLOSSAL NERVE STIMULATOR SYSTEM 5 Obstructive sleep apnea 07/03/2025 11:10 AM EDT documented as of this encounter Visit Diagnoses Not on filedocumented in this encounter Care Teams Academic Success Coordinator Relationship Specialty Start Date End Date Tony Hernandez MD [address] [place], [place] [id number] PCP - General Internal Medicine 06/05/25 documented as of this encounter
--- OUTSIDE RECORDS SUMMARY | 2025-06-27 12:26 | XMS_ITS | Encounter Summary ---
Author Organization [facility] Address [address] [place] [address] Care Team Providers Care Criminal Attorney Name Role Phone Unavailable Primary Care Provider Unavailabl e Reason for Visit * Reason Onset Date Comments Follow-up 05/31/2025 On needed inform ation for upcoming procedure Encounter Details Date Type Department Care Team (Late st Contact Info) Description 05/31/2025 Telephone [facility] Physicians - Ear, Nose & Throat, [address] [place] [address] Meghna Solis RN Follow-up (On needed information for upcoming procedure) Social History Tobacco Use Types Packs/Day Years [...] encounter Miscellaneous Notes * Telephone Encounter - Mgehna Solis RN - 05/31/2025 11:52 AM EDT H&P by PCP received and there were no indications not to proceed with the DISE ( Drug Induced Sleep Endoscopy). * Telephone Encounter - Meghna Solis RN - 05/31/2025 8:48 AM EDT Images from the original note were not included. Tony Hernandez MD PCP - General, Internal Medicine Since 02/13/2021 I have reached out to this PCP office and left a message requesting the H&P on this patient to be faxed to us. As of 849 am there is not a H&P scanned into media on the patient. documented in this encounter Plan of Treatment Upcoming Encounters Date Type Department Care Team (Latest Contact Info) Description 07/03/2025 11:10 AM EDT Hospital Encounter Periop B-Level [address] [place] [address] Shaan Day MD [address] [place] [address] 07/03/2025 11:10 AM EDT - 07/03/2025 12:25 PM EDT Surgery Periop B-Level [address] [place] [address] Shaan Day MD [address] [place] [address] Insertion of hypoglossal nerve stimulator 07/09/2025 8:30 AM EDT Appointment [facility] Physicians - Ear, Nose & Throat, [place] [address] [facility] [address] [place] [address] Shaan Day MD [address] [place] [address] Scheduled Procedures Name Priority Associated Diagnoses Date/Ti me IMPLANT HYPOGLOSSAL NERVE STIMULATOR SYSTEM 5 Obstructive sleep apnea 07/03/2025 11:10 AM EDT documented as of this encounter Visit Diagnoses Not on filedocumented in this encounter
[2025-06-27 13:01] LABS: Hematocrit 50.1 % (42.0-52.0); Hemoglobin 16.7 g/dL (14.1-18.0); Immature Granulocytes % 0.2 %; Mean Corpuscular HGB Conc 33.3 g/dL (31.8-35.4); Mean Corpuscular Hemoglobin 28.3 pg (27.0-31.2); Mean Corpuscular Volume 84.8 fl (80-94); Nucleated Red Blood Cells % 0 %; Platelet Count 248 K/mm3 (142-424); Red Blood Count 5.91 M/mm3 (4.60-6.20); Red Cell Distribution Width-SD 39.6 fL; White Blood Count 6.0 K/mm3 (4.8-10.8)
[2025-06-27 13:08] LABS: INR 1.06 (0.9-1.1); Prothrombin Time 11.7 seconds (10.1-12.5)
[2025-06-27 13:17] LABS: Alanine Aminotransferase 25 U/L (12-78); Albumin Level 4.3 g/dl (3.5-5.0); Albumin/Globulin Ratio 1.7 (1.1-1.8); Alkaline Phosphatase 62 U/L (38-126); Anion Gap 12.3 mEq/L (5-15); Aspartate Amino Transferase 31 U/L (17-59); Bilirubin,Total 0.6 mg/dl (0.2-1.3); Blood Urea Nitrogen 9 mg/dl (9-20); Calcium 9.7 mg/dl (8.4-10.2); Carbon Dioxide 25 mmol/L (22.0-30.0); Chloride 102 mmol/L (98-107); Creatinine,Serum 0.80 mg/dl (0.66-1.25); Estimated Glomerular Filt Rate 96 ml/min (>60); GFR (African American) 116 ML/MIN (>60); Globulin 2.6 g/dL (1.3-3.2); Glucose 95 mg/dl (74-100); Potassium 4.3 mmoL/L (3.5-5.1); Sodium 135 mmol/L (136-145); Total Protein,Serum 6.9 g/dl (6.3-8.2)
[2025-06-27 19:03] LABS: Hemoglobin A1C 6.3 % (4.0-6.0)
== END 2025-06-27 23:59 | disposition home or self-care (01) ==
LOC: LAB 12:23
PROVIDERS: PCP Nurse Practitioner Family; Visit Provider Nurse Practitioner Family
DX: Z01.812 Encounter for preprocedural laboratory examination (principal); E11.9 Type 2 diabetes mellitus without complications; G47.33 Obstructive sleep apnea (adult) (pediatric); I25.10 Atherosclerotic heart disease of native coronary artery without angina pectoris
CPT/HCPCS: 36415; 80053; 83036; 85025; 85610

== ENCOUNTER 2025-07-02 07:51 | Outpatient (CLI) | payer MEDICARE, SELFPAY ==
--- OUTSIDE RECORDS SUMMARY | 2025-05-14 13:30 | XMS_ITS | Encounter Summary ---
Author Organization [facility] Address [address] [place] [address] Care Team Providers Care Avionics Electronics Technician Name Role Phone Unavailable Primary Care Provider Unavailabl e Reason for Visit * Reason Comments Sleep Issues Pt wants to talk abo ut Inspire pt has issues with sleep Encounter Details Date Type Department Care Team (Late st Contact Info) Description 05/14/2025 1:30 PM EDT Office Visit [facility] Physicians - Ear, Nose & Throat, [place] [address] [facility] [address] [place] [address] Shaan Day MD [address] [place] [address] MAYDA (obstructive sleep apnea) (Primary [...] MD - 05/14/2025 1:30 PM EDT [facility] DEPARTMENT OF OTOLARYNGOLOGY- HEAD & NECK SURGERY [...] AM EDT Hospital Encounter Periop B-Level [address] [place] [address] Shaan Day MD [address] [facility] [place] [address] 07/03/2025 11:10 AM EDT - 07/03/2025 12:25 PM EDT Surgery Periop B-Level [address] [place] [address] Shaan Day MD [address] [facility] [place] [address] Insertion of hypoglossal nerve stimulator 07/09/2025 8:30 AM EDT Appointment [facility] Physicians - Ear, Nose & Throat, [address] [place] [address] Shaan Day MD [address] [facility] [address] [place] [address] Scheduled Procedures Name Priority Associated Diagnoses Date/Ti [...]
--- OUTSIDE RECORDS SUMMARY | 2025-05-29 10:00 | XMS_ITS | Encounter Summary ---
Author Organization [facility] Address [address] [place] [address] Care Team Providers Care Simonizer Name Role Phone Unavailable Primary Care Provider Unavailabl e Encounter Details Date Type Department Care Team (Latest Contact Info) Description 05/29/2025 10:00 AM EDT - 05/29/2025 11:59 PM EDT Hospital Encounter PRE SURGICAL TESTING [phone] Discharge Disposition: Home or Self Care Social [...] AM EDT Hospital Encounter Periop B-Level [address] [place] [address] Shaan Day MD [address] [place] [address] 07/03/2025 11:10 AM EDT - 07/03/2025 12:25 PM EDT Surgery Periop B-Level [address] [place] [address] Shaan Day MD [address] [facility] [place] [address] Insertion of hypoglossal nerve stimulator 07/09/2025 8:30 AM EDT Appointment [facility] Physicians - Ear, Nose & Throat, [place] [address] [facility] [address] [place] [address] Shaan Day MD [address] [facility] [place] [address] Scheduled Procedures Name Priority Associated Diagnoses Date/Ti ok IMPLANT HYPOGLOSSAL NERVE STIMULATOR SYSTEM 5 Obstructive sleep apnea 07/03/2025 11:10 AM EDT documented as of this encounter Visit Diagnoses Not on filedocumented in this encounter
--- OUTSIDE RECORDS SUMMARY | 2025-06-05 10:50 | XMS_ITS | Encounter Summary ---
Author Organization [facility] Address [address] [place] [address] Care Team Providers Care Hands And Dial Inspector Name Role Phone Tony Hernandez MD Primary Care Provider [phone] Reason for Visit * Auth/Cert Specialty Diagnoses / Procedures Referred By Contac t Referred To Contact Diagnoses Obstructive sleep apnea Obstructive sleep apnea [G47.33] Procedures AL DISE DYN EVAL SLEEP DISORDERED BREATHING FLX DX Sleep Nasopharyngoscopy Referral ID Status Reason Start Date Expiration Date Visits Re quested Visits Authorized [id number] 1 1 Encounter Details Date Type Department Care Team (Latest Contact Info) Description 06/05/2025 10:50 AM EDT - 06/05/2025 1:58 PM EDT Hospital Encounter [facility] Same Day Surgery [address] [place] [address] Shaan Day MD [address] [place], [place] [address] Obstructive sleep apnea Discharge Disposition: Home or [...] - 06/05/2025 12:58 PM EDT [facility] DIVISION OF OTOLARYNGOLOGY- HEAD & NECK SURGERY OPERATIVE REPORT Patient Name: Dani Garland Date: 1955 Billing Number: [id number] Date of Procedure: 06/05/2025 Preoperative Diagnosis: 1) [...] AM EDT Hospital Encounter Periop B-Level [address] [place] [address] Shaan Day MD [address] [place] [address] 07/03/2025 11:10 AM EDT - 07/03/2025 12:25 PM EDT Surgery Periop B-Level [address] [place] [address] Shaan Day MD [address] [place] [address] Insertion of hypoglossal nerve stimulator 07/09/2025 8:30 AM EDT Appointment [facility], [place] [address] [facility] [address] [place] [address] Shaan Day MD [address] [facility] [address] [facility] [address] [place] [address] Scheduled Procedures Name Priority Associated Diagnoses Date/Ti me IMPLANT HYPOGLOSSAL NERVE STIMULATOR SYSTEM 5 Obstructive sleep apnea 07/03/2025 11:10 AM EDT documented as of this encounter Procedures Procedure Name Priority Date/Time Associated Diagnosis Comments POC GLU MONITORING DEVICE Routine 06/05/2025 1:15 PM EDT AL DISE DYN EVAL SLEEP DISORDERED BREATHING FLX [...] OF CARE TEST ORDERAB LES Final Result [facility] [address] * POC GLU MONITORING DEVICE (06/05/2025 11:26 AM EDT) POC Glucose Monitoring Device 92 71 - 99 mg/dL [facility] Blood 06/05/2025 11:2 6 AM EDT 06/05/2025 11:32 AM EDT us Shaan Day MD POINT OF CARE TEST ORDERAB LES Final Result Performing Organization Address [facility] Co de Phone Number [facility] [address] documented in this encounter Visit Diagnoses [...] mg documented in this encounter Care Teams Hands And Dial Inspector Relationship Specialty Start Date End Date Tony Hernandez MD [address] [place] [address] PCP - General Internal Medicine 06/05/25 documented as of this encounter
--- OUTSIDE RECORDS SUMMARY | 2025-06-05 12:47 | XMS_ITS | Encounter Summary ---
Author Organization [facility] Address [address] [place] [address] Care Team Providers Care Binding Machine Operator Name Role Phone Tnoy Hernandez MD Primary Care Provider [phone] Reason for Visit * Auth/Cert Specialty Diagnoses / Procedures Referred By Contac t Referred To Contact Diagnoses Obstructive sleep apnea Obstructive sleep apnea [G47.33] Procedures VT DISE DYN EVAL SLEEP DISORDERED BREATHING FLX DX Sleep Nasopharyngoscopy Referral ID Status Reason Start Date Expiration Date Visits Re quested Visits Authorized [id number] 1 1 Encounter Details Date Type Department Care Team (Late st Contact Info) Description 06/05/2025 12:47 PM EDT Anesthesia Event Periop B-Level [address] [place] [address] Hamilton Sena MD [address] [place] [address] Jaiden Fernandez CAA [address] [facility]. Level [place] [address] Anesthesia Record Procedure Summary Procedure Name Responsible Anesthesiologist Anesthesia Start Time Anesthesia Stop Time Drug-induced sleep endoscopy Hamilton Sena MD 06/05/25 1247 06/05/25 1309 Events Date Time Event Comment 06/05/2025 1216 1247 An Start 1247 An Start Data 1249 MAC Initiated 1253 Procedure Start Surgical Inc ision Time 1257 Procedure End 1257 Transport 1301 an stop data 1309 An End Meds Name Total lidocaine injection (PF) 2% 100 mg PROPOFOL 10 mg PROPOFOL INFUSION 119.68 mg sodium chloride 0.9% IV solution 500 mL * Agents Name O2 N2O Air Sevoflurane (exp) * Blood No blood administrations on file. Lines, Drains, and Airways Type Details Placement Removal Peripheral IV Size: 20 G; Length: 1 inch; Orientation: Left, Dorsal; Location: Hand; Inserted by: AF; Attempts: 1; Removal reason: Therapy completed 06/05/25 1130 by Melisa Padgett RN 06/05/25 1344 by Ann-Marie Navarrete RN documented in this encounter Social History Tobacco Use Types Packs/Day Years [...] AM EDT documented as of this encounter OR Notes * Anesthesia Postprocedure Evaluation - Jaiden Fernandez CAA - 06/05/2025 12:51 PM EDT Post Anesthesia Evaluation Final Anesthesia Type:general Date of Surgery: 06/05/2025 Surgeon(s): Shaan Day MD Charles W Kuster is stable with no current apparent anesthetic complications. Vitals reviewed and accepted. Vitals: Vitals Value Taken Time Pulse 58 06/05/25 12:51 Temp Resp SpO2 95 % 06/05/25 12:51 NIBP 112/80 06/05/25 12:50 ART MAP NIBP (mean) 91 06/05/25 12:50 [x] Cardiorespiratory status is acceptable. [x] Pt responding verbally and following commands to acceptable level. [x] Temperature acceptable [x] Hydration status is acceptable [x] Patient's pain is being adequately managed [x] Patient is nausea free MIPS for Anesthesia Quality Measures: #404 Anesthesiology Smoking Abstinence The Patient is a current smoker No, Stop Here(XX404) #424 Perioperative Temperature Management Anesthesia start to Anesthesia end time was 60 minutes or longer. No, Stop Here(4256F) #477 Multimodal Pain Management The case is Emergent No No List medical reason(s) patient did not receive multimodal pain management: No pain anticipated postop #430 ADULT Prevention of Post-Operative Nausea & Vomiting (PONV) - Combination Therapy (18 years and older) Patient received an inhalational anesthetic No, Stop Here (XX430) #463 PEDIATRIC Prevention of Post-Operative Vomiting (POV) - Combination Therapy Patient aged 3-17 years received an inhalational anesthetic? No, Stop Here(XX463) Highest Temperature Near Anesthesia End Fahrenheit * Anesthesia Preprocedure Evaluation - Hamilton Sena MD - 06/05/2025 12:10 PM EDT Procedure Information Case: [id number] Date/Time: 06/05/25 1250 Procedure: Drug-induced sleep endoscopy - Drug-induced sleep endoscopy Anesthesia type: MAC Location: [facility] B LEVEL OR 14 / B LEVEL OR Surgeons: Shaan Day MD Planned Anesthesia type: MAC Risks, benefits, and alternatives discussed with patient. Post-Operative pain management options pertinent to the planned surgery were discussed with patientas per surgeon???s request. Patient anesthetic care and plan discussed with anesthesiologist. No history of anesthetic complications patient appropriate for plan no family hx of anesthetic complications NPO status reinforced Aspiration risk assessed. Mallampati: II ASA 3 Cleared medically for surgery by DONYA Garcia 05/30/25, per note in chart: HTN, seizure history, GERD, sleep apnea, palpatations (24 hr holter - isolated PVCs) Took depakote this AM MAYDA Score 06/05/2025 1145 Diagnosed with Sleep Apnea?: Yes MIPS for Anesthesia Preop Quality Measures: Measure #404: Anesthesiology Smoking Abstinence: N/A - Patient is a nonsmoker Measure #430 Prevention of Postop Nausea and Vomiting-combination therapy (Pts 18 yrs or older, receiving inhalational anesthetic, with 3 or more risk factors) This patient's risk factors: Non-smoker and Intended use of opioids for analgesia intraop, in PACU, or after D/C from PACU Measure #477 Multimodal Pain Management (for patients 18 yrs old and older) The plan is to administer multimodal pain management consisting of: Acetaminophen, Steroids (decadron), and Local anesthetics (injected by surgeon or systemic) documented in this encounter Miscellaneous Notes * Addendum Note - Hamilton Sena MD - 06/05/2025 1:51 PM EDT Addendum created 06/05/25 1351 by Hamilton Sena MD Attestation recorded in Intraprocedure, Intraprocedure Attestations filed * Anesthesia PACU Handoff Note - Jaiden Fernandez CAA - 06/05/2025 12:51 PM EDT Transfer of Care Anesthesia Handoff Note Date of Surgery: 06/05/2025 Scheduled Procedure(s): Drug-induced sleep endoscopy Patient: Dani Garland Anesthesiologist: Hamilton Sena MD Complications: Recovery Location: SDS Airway: Spontaneous Pain Assessment: Managed Level of Consciousness: Arousable Intraoperative anesthetic care and concerns, pertinent medical history, medications, allergies, surgical/procedure course and plan for post procedure period discussed with receiving PACU or ICU team.Opportunity for questions and understanding of report acknowledged. Post-procedure handoff checklist complete. Past Medical History[1] Allergies as of 05/14/2025 ??? (No Known Allergies) Vitals Value Taken Time Pulse 58 06/05/25 12:51 Temp Resp SpO2 95 % 06/05/25 12:51 NIBP 112/80 06/05/25 12:50 ART MAP NIBP (mean) 91 06/05/25 12:50 [1] Past Medical History: Diagnosis Date ??? Arthritis all over mostly in knees & fingers ??? Coronary artery disease 2 stents in 2014 , 2021 & 2024 total of 6 stents ??? Delayed emergence from anesthesia ??? Diabetes mellitus type I (CMS/HCC) ??? Former smoker stopped in 2024 ??? GERD (gastroesophageal reflux disease) ??? Hyperlipidemia ??? Hypertension ??? Seizure disorder (CMS/HCC) last in 1997 ??? Sleep apnea documented in this encounter Plan of Treatment Upcoming Encounters Date Type Department Care Team (Latest Contact Info) Description 07/03/2025 11:10 AM EDT Hospital Encounter Periop B-Level [address] [place] [address] Shaan Day MD [address] [place] [address] 07/03/2025 11:10 AM EDT - 07/03/2025 12:25 PM EDT Surgery Periop B-Level [address] [place] [address] Shaan Day MD [address] [place] [address] Insertion of hypoglossal nerve stimulator 07/09/2025 8:30 AM EDT Appointment [facility] Physicians - Ear, Nose & Throat, [place] [address] [facility] [address] [place] [address] Shaan Day MD [address] [facility] [place] [address] Scheduled Procedures Name Priority Associated Diagnoses Date/Ti me IMPLANT HYPOGLOSSAL NERVE STIMULATOR SYSTEM 5 Obstructive sleep apnea 07/03/2025 11:10 AM EDT documented as of this encounter Visit Diagnoses Not on filedocumented in this encounter Administered Medications Inactive Administered Medications - up to 3 most recent administrations Medication Order MAR Action Action Date Dose Rate Site ANESTHESIA-PROPOFOL 10 MG/ML INFUSION Intravenous, CONTINUOUS PRN, Starting on Tue06/05/25 at 1249, Intra-op New Bag 06/05/2025 12:49 PM EDT 100 mcg/kg/min 65.28 mL/hr ANESTHESIA-PROPOFOL 10 MG/ML INJECTION Intravenous, INTRA-OP PRN, Starting on Tue06/05/25 at 1249, Intra-op Given 06/05/2025 12:49 PM EDT 10 mg lidocaine (PF) 2 % injection Intravenous, INTRA-OP PRN, Starting on Tue06/05/25 at 1249, Intra-op Given 06/05/2025 12:49 PM EDT 100 mg sodium chloride 0.9% IV solution 1,000 mL, Intravenous, PRE-OP CONTINUOUS, Starting on Tue06/05/25 at 0000, Pre-op (day of surgery)Indications:Obs tructive sleep apnea Restarted 06/05/2025 1:00 PM EDT New Bag 06/05/2025 11:32 AM EDT 1,000 mL 125 mL/hr documented in this encounter Care Teams Binding Machine Operator Relationship Specialty Start Date End Date Tony Hernandez MD [address] [place] [address] PCP - General Internal Medicine 06/05/25 documented as of this encounter
--- OUTSIDE RECORDS SUMMARY | 2025-06-05 12:50 | XMS_ITS | Encounter Summary ---
Author Organization [facility] Address [address] [place] [address] Care Team Providers Care Shorts Sifter Name Role Phone Tony Hernandez MD Primary Care Provider [phone] Reason for Visit * Auth/Cert Specialty Diagnoses / Procedures Referred By Contac t Referred To Contact Diagnoses Obstructive sleep apnea Obstructive sleep apnea [G47.33] Procedures [place] DISE DYN EVAL SLEEP DISORDERED BREATHING FLX DX Sleep Nasopharyngoscopy Referral ID Status Reason Start Date Expiration Date Visits Re quested Visits Authorized [id number] 1 1 Encounter Details Date Type Department Care Team (Late st Contact Info) Description 06/05/2025 12:50 PM EDT - 06/05/2025 1:20 PM EDT Surgery Periop B-Level [address] [place] [address] Shaan Day MD [address] [place] [address] Drug-induced sleep endoscopy Social History Tobacco Use Types Packs/Day Years [...] Sign Reading Time Taken Comments Blood Pressure 110/76 06/05/2025 1:08 PM EDT Pulse 60 06/05/2025 1:08 PM EDT Temperature 36.1 C (96.9 F) 06/05/2025 11:16 AM EDT Respiratory Rate 16 06/05/2025 1:08 PM EDT Oxygen Saturation 95% 06/05/2025 1:08 PM EDT Inhaled Oxygen Concentration - - [...] MD - 06/05/2025 12:58 PM EDT [facility] DIVISION OF OTOLARYNGOLOGY- HEAD & NECK SURGERY OPERATIVE REPORT Patient Name: Dani Garland Date: 1955 Billing Number: [id number] Date of Procedure: 06/05/2025 Preoperative Diagnosis: 1) [...] AM EDT Hospital Encounter Periop B-Level [address] [place] [address] Shaan Day MD [address] [place] [address] 07/03/2025 11:10 AM EDT - 07/03/2025 12:25 PM EDT Surgery Periop B-Level [address] [place] [address] Shaan Day MD [address] [place] [address] Insertion of hypoglossal nerve stimulator 07/09/2025 8:30 AM EDT Appointment [facility] - Ear, Nose & Throat, [place] [address] [facility] [address] [place] [address] Shaan Day MD [address] [facility] [place] [address] Scheduled Procedures Name Priority Associated Diagnoses Date/Ti me IMPLANT HYPOGLOSSAL NERVE STIMULATOR SYSTEM 5 Obstructive sleep apnea 07/03/2025 11:10 AM EDT documented as of this encounter Procedures Procedure Name Priority Date/Time Associated Diagnosis Comments POC GLU MONITORING DEVICE Routine 06/05/2025 1:15 PM EDT FL DISE DYN EVAL SLEEP DISORDERED BREATHING FLX DX 06/05/2025 12:44 PM EDT Obstructive sleep apnea POC GLU MONITORING DEVICE Routine 06/05/2025 11:26 AM EDT documented in this encounter Results * POC GLU MONITORING DEVICE (06/05/2025 1:15 PM EDT) POC Glucose Monitoring Device 80 71 - 99 mg/dL [facility] Blood 06/05/2025 1:15 PM EDT 06/05/2025 1:16 PM EDT us Shaan Day MD POINT OF CARE TEST ORDERAB LES Final Result [facility] [address] * POC GLU MONITORING DEVICE (06/05/2025 11:26 AM EDT) POC Glucose Monitoring Device 92 71 - 99 mg/dL [facility] Blood 06/05/2025 11:2 6 AM EDT 06/05/2025 11:32 AM EDT us Shaan Day MD POINT OF CARE TEST ORDERAB LES Final Result [facility] [address] documented in this encounter Visit Diagnoses [...] Switch to gravity)1300 (Restarted - Provider: CHANTAL iXe) sodium chloride 0.9% IV solution 1,000 mL, [...] mg documented in this encounter Care Teams Shorts Sifter Relationship Specialty Start Date End Date Tony Hernandez MD [address] [place] [address] PCP - General Internal Medicine 06/05/25 documented as of this encounter
--- OUTSIDE RECORDS SUMMARY | 2025-06-18 09:20 | XMS_ITS | Encounter Summary ---
Author Organization The [facility] Address [address] [place] [address] Care Team Providers Care Fiberglass Luggage Molder Name Role Phone Tony Hernandez MD Primary Care Provider Reason for Visit * Reason Comments Follow-up Discuss Inspire no n ew issues Encounter Details Date Type Department Care Team (Latest Contact Info) Description 06/18/2025 9:20 AM EDT Office Visit The [facility] Physicians - Ear, Nose & Throat, [place] [address] [facility] [address] [place] [address] Shaan Day MD [address] [place] [address] Obstructive sleep apnea (Primary Dx); BMI 33.0-33.9,adult; History of anticoagulant use Social History Tobacco Use Types Packs/Day Years Used Date Smoking Tobacco: Former Cigarettes Passive Smoke Exposure: Past Smokeless Tobacco: Former Tobacco Cessation:Counseling Given: Not Answered Alcohol Use [...] - - Weight 108.4 kg (239 lb) 06/18/2025 9:16 AM EDT Height 180.3 cm (5' 11 ) 06/18/2025 9:16 AM EDT Body Mass Index 33.33 06/18/2025 9:16 AM EDT documented in this encounter Progress Notes * Shaan Day MD - 06/18/2025 9:20 AM EDT [facility] DEPARTMENT OF OTOLARYNGOLOGY- HEAD & NECK SURGERY Age: 69 y.o. (: 1955) Ethnicity: Non- Race: White/ Gender: male Chief Complaint: Follow-up (Discuss Inspire no new issues ) Assessment ICD-10-CM 1. Obstructive sleep apnea G47.33 2. BMI 33.0-33.9,adult Z68.33 3. History of anticoagulant use Z92.29 No Encounter Medications Assessment & Plan Obstructive sleep apnea Severe obstructive sleep apnea with an AHI of 47.2 and lowest oxygen saturation of 81% as per the sleep study conducted in April 2025. CPAP therapy has been ineffective due to mask intolerance. Meets criteria for Inspire hypoglossal nerve stimulator implantation based on sleep study architecture anddrug-induced sleep endoscopy results. No concentric closure observed, making him a good candidate for the procedure. Informed about the surgical procedure, including the two incisions required, the placement of the cuff around the hypoglossal nerve, and the processor in the chest. Post-operative care includes pain management, antibiotics, and activity restrictions. The device will be activated one month post-surgery, followed by titration with sleep medicine. The risks, benefits, and alternatives to the procedure were discussed with the patient, including but not limited to bleeding, infection, nerve damage, extrusion, device failure, pneumothorax, persistence, and or need for further surgery. The patient would like to move forward with hypoglossal nerve stimulator implantation as an outpatient. - Obtain cardiac clearance regarding Plavix management for surgery - Prescribe pain medications post-operatively - Prescribe antibiotics post-operatively - Advise no heavy lifting for two weeks post-surgery - Advise no strenuous activities during weeks three and four post-surgery - Instruct on neck rolling exercises post-surgery - Schedule device activation one month post-surgery - Coordinate with sleep medicine for device titration post-activation Presence of spinal cord stimulator Presence of a spinal cord stimulator by Debbi. Perioperative management requires avoiding monopolarelectrocautery to prevent interference with the device. Informed about the surgical precautions to prevent damage to the spinal stimulator. - Use bipolar electrocautery during surgery to avoid interference with spinal cord stimulator History of Present Illness dani Garland is a 69 year old male with severe sleep apnea who presents for follow up evaluation of Inspire therapy candidacy. He has a history of severe sleep apnea for at least ten years and has been using CPAP therapy, which has not been fully effective as he often removes the mask during the night. He has tried differentmasks without success. His most recent sleep study in April 2025 showed an AHI of 47.2, lowest oxygen saturation of 81%, and a central apnea index of 0.2 with no mixed apneas. He underwent a drug-induced sleep endoscopy on June 05, 2025, which did not show any concentricclosure. He has a history of coronary stents and is currently on Plavix. He has not yet obtained cardiac clearance regarding the discontinuation of Plavix for the upcoming procedure. He has a spinal stimulator, which will be considered during the surgical procedure to avoid any interference. Objective Medications- Current, Listed Cont[1] Ht 5' 11 (1.803 m) Wt 239 lb (108.4 kg) BMI 33.33 kg/m?? Physical Exam General: Well-developed, well-nourished in no acute distress. Able to communicate Psychiatric: Calm mood/affect Head and Face: Atraumatic Ears: External ears have a normal appearance Eye: EOMI Nose: External nose without infection or abnormality. OC/OP: Moist mucus membranes without dryness in commissure Neck: Overall appearance normal. Trachea midline. No erythema. Respiratory: Symmetrical chest rise, breathing normal and unlabored Cardiovascular: Normal skin perfusion and tone, no JVD Neurologic: House Brackman 1/6 bilaterally. Skin: No rash Procedure Imaging The patient/family provided verbal consent to the use of ambient listening technology/audio recording during this visit. I reviewed/edited the note before signing. [1] Current Outpatient Medications: atorvastatin (LIPITOR) 40 mg Tablet, Take 40 mg by mouth nightly at bedtime. Indications: high cholesterol, Disp: , Rfl: clopidogreL (PLAVIX) 75 mg tablet, Take 75 mg by mouth daily., Disp: , Rfl: colestipoL (COLESTID) 1 gram tablet, Take 1 g by mouth 2 times daily., Disp: , Rfl: divalproex (DEPAKOTE) 500 mg Tablet, Delayed Release (E.C.), Take 500 mg by mouth in the morning and 500 mg before bedtime. Indications: seizure disorder., Disp: , Rfl: Farxiga 10 mg Tablet tablet, Take 10 mg by mouth daily., Disp: , Rfl: gabapentin (NEURONTIN) 100 mg capsule, Take 100 mg by mouth. 1tab in am and 4 tabs at night, Disp: , Rfl: losartan (COZAAR) 25 mg Tablet, Take 25 mg by mouth daily., Disp: , Rfl: magnesium oxide (MAG-OX) 400 mg (241.3 mg magnesium) tablet, Take 400 mg by mouth daily. Indications: low amount of magnesium in the blood, Disp: , Rfl: metoprolol succinate (TOPROL) 25 mg XL tablet, Take 25 mg by mouth nightly at bedtime., Disp: , Rfl: OMEPRAZOLE PO, Take 40 mg by mouth daily., Disp: , Rfl: Ozempic 1 mg/dose (4 mg/3 mL) Pen Injector, 1 mg by Subcutaneous route every Tuesday. Indications: type 2 diabetes mellitus, weight loss management for a person with obesity, Disp: , Rfl: pantoprazole (PROTONIX) 40 mg Tablet, Delayed Release (E.C.), Take 40 mg by mouth daily., Disp: , Rfl: rOPINIRole (REQUIP) 4 mg Tablet, Take 4 mg by mouth nightly. Indications: restless legs syndrome, an extreme discomfort in the calf muscles when sitting or lying down, Disp: , Rfl: Sure Comfort Insulin Syringe 1 mL 29 gauge x 1/2 Syringe, USE DIRECTED, Disp: , Rfl: traZODone (DESYREL) 300 mg tablet, Take 300 mg by mouth nightly at bedtime. Indications: sleep, Disp: , Rfl: verapamiL (VERELAN) 180 mg CR capsule, Take 180 mg by mouth daily., Disp: , Rfl: documented in this encounter Plan of Treatment Upcoming Encounters Date Type Department Care Team (Latest Contact Info) Description 07/03/2025 11:10 AM EDT Hospital Encounter Periop B-Level [address] [place] [address] Shaan Day MD [address] [facility] [place] [address] 07/03/2025 11:10 AM EDT - 07/03/2025 12:25 PM EDT Surgery Periop B-Level [address] [place] [address] Shaan Day MD [address] [facility] [place] [address] Insertion of hypoglossal nerve stimulator 07/09/2025 8:30 AM EDT Appointment The [facility] Physicians - Ear, Nose & Throat, [place] [address] [facility] [address] [place] [address] Shaan Day MD [address] [facility] [address] [place] [address] Scheduled Procedures Name Priority Associated Diagnoses Date/Ti me IMPLANT HYPOGLOSSAL NERVE STIMULATOR SYSTEM 5 Obstructive sleep apnea 07/03/2025 11:10 AM EDT documented as of this encounter Visit Diagnoses Diagnosis Obstructive sleep apnea- Primary Obstructive sleep apnea (adult) (pediatric) BMI 33.0-33.9,adult Body Mass Index 33.0-33.9, adult History of anticoagulant use Obstructive sleep apnea Obstructive sleep apnea (adult) (pediatric) documented in this encounter Care Teams Fiberglass Luggage Molder Relationship Specialty Start Date End Date Tony Hernandez MD [address] [place] [address] PCP - General Internal Medicine 06/05/25 documented as of this encounter
--- OUTSIDE RECORDS SUMMARY | 2025-06-26 12:15 | XMS_ITS | Encounter Summary ---
Author Organization [facility] Address [address] [place] [address] Care Team Providers Care Drive Thru Order Taker Name Role Phone Tony Hernandez MD Primary Care Provider Encounter Details Date Type Department Care Team (Latest Contact Info) Description 06/26/2025 12:15 PM EDT - 06/26/2025 11:59 PM EDT Hospital Encounter PRE SURGICAL TESTING [phone] Discharge Disposition: Home or Self Care Social [...] fluticasone propionate (FLONASE) 50 mcg/actuation nasal spray [place] 1 [place] into nose in the morning. 06/11/2025 gabapentin [...] AM EDT Hospital Encounter Periop B-Level [address] [place] [address] Shaan Day MD [address] [place] [address] 07/03/2025 11:10 AM EDT - 07/03/2025 12:25 PM EDT Surgery Periop B-Level [address] [place] [address] Shaan Day MD [address] [facility] [place] [address] Insertion of hypoglossal nerve stimulator 07/09/2025 8:30 AM EDT Appointment The [facility] Physicians - Ear, Nose & Throat, [place] [address] [facility] [address] [place] [address] Shaan Day MD [address] [facility] [place] [address] Scheduled Procedures Name Priority Associated Diagnoses Date/Ti me IMPLANT HYPOGLOSSAL NERVE STIMULATOR SYSTEM 5 Obstructive sleep apnea 07/03/2025 11:10 AM EDT documented as of this encounter Visit Diagnoses Not on filedocumented in this encounter Care Teams Drive Thru Order Taker Relationship Specialty Start Date End Date Tony Hernandez MD [address] [place] [address] PCP - General Internal Medicine 06/05/25 documented as of this encounter
--- OUTSIDE RECORDS SUMMARY | 2025-07-02 07:54 | XMS_ITS | Clinical Summary ---
Author Organization [facility] Address [address] [place] [address] Phone Care Team Providers Care Faculty Dean Name Role Phone JANINA BYNUM, TONY Unavailable [phone] Samia BYNUM, Mason Carrizales Unavailable [phone] Reason for Visit and Chief Complaint The Chief Complaint is: Cervical pain Problems Includes: Problems addressed during this encounter and other active Problems All Visits Onset Date Resolved Date Provider Condition S tatus Foot Pain Soft Tissue 03/13/2024 Marito Mclain DPM Active Last Documented On 4 3:19PM ; [facility] Neck Pain 10/28/2022 Alfonso Macias MD Active Last Documented On 3 8:04AM ; [facility] Lower Back Pain 08/25/2020 Alfonso Macias MD Act karen Last Documented On 0 10:34AM ; [facility] Joint Pain Right Knee 07/06/2019 Mason Gracia MD Active Last Documented On 9 1:02PM ; [facility] Plan of Treatment - Patient screened for future fall risk: documentation of any fall with injury in past year - Last Documented On 12/19/2024 12:58PM ; [facility] Fall Risk Assessment: This patient has been identified as a fall risk. Balance/gait along with postural blood pressure, vision and home fall hazards have been assessed. Medications have been reviewed, and recommendations made with regard to contributing factors for future falls. Plan of care: Consideration of vitamin D supplementation along with balance and strength training with consideration for formal physical therapy has been discussed with the patient. - Last Documented On 12/19/2024 12:58PM ; [facility] Patient was seen by myself Tonio Quinonez PA-C. Patient will follow up 4 weeks post injection with myself and Dr. Macias. We will set him up for another epidural injection at C6-C7 and see if this helps him again. He will need to be off his Plavix prior to the injection - Last Documented On 12/19/2024 12:58PM ; [facility] Pending Tests Order Diagnosis Results Due Ordering P rovider Radiology - MRI MRI Lumbar Spine 05/25/22 Irineo Quinonez PA-C Last Documented On 2 7:57AM ; [facility] Radiology - MRI MRI Cervical Spine Cervicalgia 10/30/24 Tonio Quinonez PA-C Last Documented On 5 11:40AM ; [facility] Radiology - MRI MRI Lumbar Spine Low back pain, unspecified 07/01/25 Tonio Quinonez PA-C Last Documented On 5 3:11PM ; [facility] Future Appointments Date Time Location Provi antwan Follow Up 07/04/2025 8:30AM [facility] [place] Macias MD Last Documented On 5 3:02PM ; [facility] Instructions to patient Lose weight Last Documented On 5 2:56PM ; [facility] Assessments Includes: Assessments from this encounter Findings - Overweight - Last Documented On 12/19/2024 12:58PM ; [facility] C6-C7 disc osteophyte complex and foraminal stenosis - Last Documented On 12/19/2024 12:58PM ; [facility] Instructions Includes: Instructions from this encounter Instructions to patient Lose weight Last Documented On 5 2:56PM ; [facility] Medical Equipment - Implanted Devices Includes: Current Devices No Medical Equipment Recorded Medications Includes: Medications discussed during this encounter and other current Medications Current Medications (continue as prescribed) Celecoxib 100 MG Oral Capsule 06/17/2025 Provider: Diagnosis: Last Documented On 3:09PM By Sriram Yang ; [facility] traZODone HCl 100 MG Oral Tablet 06/17/2025 Provider : Diagnosis: Last Documented On 5 3:09PM By Sriram Yang ; [facility] Fluticasone Propionate 50 MC G/ACT Nasal Suspension 06/11/2025 Provider: Josephine denney APRN Diagnosis: Last Documented On 5 2:48PM By Sriram Yang ; [facility] Pantoprazole Sodium 40 MG Oral Tablet Delayed Release 05/02/2025 Provider: Diagnosis: Last Documented On 5 2:48PM By Sriram Yang ; [facility] Metoprolol Succinate ER 25 M G Oral Tablet Extended Release 24 Hour 04/16/2025 Provider: Diagnosis: Last Documented On 5 2:48PM By Sriram Yang ; [facility] Ozempic (1 MG/DOSE) 4 MG/3ML Subcutaneous Solution Pen-injector 01/30/2025 Provider: TONY ROA MD Diagnosis: Last Documented On 5 2:48PM By Sriram Yang ; [facility] Sure Comfort Insulin Syringe 29G X 1/2 1 ML Miscellaneous 12/14/2024 Provider: PEDRO FERGUSON MD Diagnosis: Last Documented On 5 2:48PM By Sriram Yang ; [facility] Verapamil HCl ER 180 MG Oral Tablet Extended Release 11/30/2024 Provider: TONY ROA MD Diagnosis: Last Documented On 5 2:56PM By Sriram Yang ; [facility] Farxiga 10 MG Oral Tablet 11/15/2024 Provider: ST JOSE ROA MD Diagnosis: Last Documented On 5 2:56PM By Sriram Yang ; [facility] dexAMETHasone Sodium Phospha te 4 MG/ML Injection Solution 03/13/2024 Provider: Marito Mclain DPM Diagnosis: use as directed 1-2 mL per v isit; for topical use with iontophoresis in physical therapy Last Documented On 4 4:15PM By Hollie Bocanegra ; [facility] Meloxicam 15 MG Oral Tablet 03/13/2024 Provider: Marito Mclain DPM Diagnosis: once a day with food Last Documented On 4 4:15PM By Hollie Bocanegra ; [facility] Losartan Potassium 25 MG Oral Tablet 03/05/2024 Prov ider: TONY ROA MD Diagnosis: Last Documented On 4 3:20PM By Mona Ken ; [facility] Dapagliflozin Propanediol 10 MG Oral Tablet 03/05/2024 Provider: TONY ROA MD Diagnosis: Last Documented On 4 3:20PM By Mona Ken ; [facility] Clopidogrel Bisulfate 75 MG Oral Tablet 03/05/2024 P rovider: TONY ROA MD Diagnosis: Last Documented On 4 3:20PM By Mona Ken ; [facility] Methocarbamol 500 MG Oral Tablet 06/21/2022 Provider : TONY ROA MD Diagnosis: Last Documented On 2 1:44PM By Huma Sears ; [facility] Plavix 75 MG Oral Tablet 01/21/2022 Provider: Diagnosis: Last Documented On 2 8:50AM By Deisy Jaramillo ; [facility] rOPINIRole HCl 5 MG Oral Tablet 01/21/2022 Provider: Diagnosis: Last Documented On 2 8:50AM By Deisy Jaramillo ; [facility] Aspirin 81 MG Oral Tablet Chewable 09/03/2021 Provid er: Diagnosis: Last Documented On 1 10:54AM By Keri Zhao ; [facility] Divalproex Sodium 500 MG Oral Tablet Delayed Release 1 11/04/2020 Provider: Diagnosis: Last Documented On 1 10:55AM By Keri Zhao ; [facility] Magnesium Oxide 500 MG Oral Tablet 07/06/2019 Pr ovider: Diagnosis: Last Documented On 9 1:05PM By Jen Ramirez ; [facility] amLODIPine Besylate 2.5 MG Oral Tablet 07/06/2019 Pr ovider: Diagnosis: Last Documented On 9 1:04PM By Jen Ramirez ; [facility] Atorvastatin Calcium 40 MG Oral Tablet 07/04/2019 Pr ovider: TONY ROA MD Diagnosis: Last Documented On 9 1:03PM By Jen Ramirez ; [facility], [facility] metFORMIN HCl 1000 MG Oral Tablet 07/04/2019 Provide r: TONY ROA MD Diagnosis: Last Documented On 9 1:03PM By Jen Ramirez ; [facility], [facility] traZODone HCl 50 MG Oral Tablet 07/04/2019 Provider: TONY ROA MD Diagnosis: Last Documented On 9 1:05PM By Jen Ramirez ; [facility] Omeprazole 40 MG Oral Capsule Delayed Release 06/04/20 Provider: TONY ROA MD Diagnosis: Last Documented On 9 1:05PM By Jen Ramirez ; [facility] Carvedilol 25 MG Oral Tablet 01/06/2019 Provider: Diagnosis: Last Documented On 9 1:04PM By Jen Ramirez ; [facility] Colestipol HCl 1 GM Oral Tablet 01/06/2019 Provider: DANI ASKEW MD () Diagnosis: Last Documented On 9 1:03PM By Jen Ramirez ; [facility], [facility] hydroCHLOROthiazide 25 MG Oral Tablet 01/06/2019 Pro vider: Diagnosis: Last Documented On 9 1:03PM By Jen Ramirez ; [facility], [facility] Gabapentin 100 MG Oral Capsule 12/07/2018 Provider: TONY ROA MD Diagnosis: Last Documented On 9 1:03PM By Jen Ramirez ; [facility], [facility] Past Medications on file Naproxen 500 MG Oral Tablet 07/01/2022 - 08/30/2022 Pr ovider: Alfonso Macias MD Diagnosis: twice a day Last Documented On 2 2:16PM By Keri Zhao ; [facility], [facility] Percocet 5-325 MG Oral Tablet 12/07/2021 - 12/22/2021 Provider: Alfonso Macias MD Diagnosis: 1 po q 4h prn pain Last Documented On 2 9:38AM By Alfonso Macias ; [facility], [facility] Percocet 5-325 MG Oral Tablet 07/20/2021 - 08/04/2021 Provider: Alfonso Macias MD Diagnosis: 1 po q 4h prn pain Last Documented On 1 11:52AM By Alfonso Macias ; [facility] Mobic 15 MG Oral Tablet 08/17/2019 - 09/16/2019 Provid er: Mason Gracia MD Diagnosis: once a day DO NOT FILL TIL L 08/17/2019 FOR SURGERY Last Documented On 9 2:51PM By Corrine Powell ; [facility] traMADol HCl 50 MG Oral Tablet 08/17/2019 - 08/22/2019 Provider: Mason hunter MD Diagnosis: 1-2 po q6h prn pain DO NOT FILL TILL 08/17/2019 FOR SURGERY Last Documented On 9 2:51PM By Corrine Powell ; [facility] Zofran 4 MG Oral Tablet 08/17/2019 - 08/22/2019 Provid er: Mason Gracia MD Diagnosis: 4dru4-4u DO NOT FILL TILL 08/17/2019 FOR SURGERY Last Documented On 9 2:51PM By Corrine Powell ; [facility] Acetaminophen 500 MG Oral Tablet 08/17/2019 - 09/16/2019 Provider: Mason Gracia MD Diagnosis: 2 three times a day DO NOT FILL TILL 08/17/2019 FOR SURGERY Last Documented On 9 2:50PM By Corrnie Powell ; [facility] oxyCODONE HCl 5 MG Oral Tablet 08/17/2019 - 08/22/2019 Provider: Ashu banerjee MD Diagnosis: 1-2 po q6h prn pain Last Documented On 9 2:47PM By Corrine Powell ; [facility] Neurontin 300 MG Oral Capsule 08/17/2019 - 11/15/2019 Provider: Mason hunter MD Diagnosis: 1 every bedtime DO NOT FIDENCIO L TILL 08/17/2019 FOR SURGERY Last Documented On 9 2:51PM By Corrine Powell ; [facility] Colace 100 MG Oral Capsule 08/17/2019 - 11/15/2019 Provider: Mason hunter MD Diagnosis: 1-2 tabs daily DO NOT FILL TILL 08/17/2019 FOR SURGERY Last Documented On 9 2:50PM By Corrine Powell ; [facility] Keflex 500 MG Oral Capsule 08/17/2019 - 08/20/2019 Provider: Mason hunter MD Diagnosis: 1 every 6 hours DO NOT FIDENCIO L TILL 08/17/2019 FOR SURGERY Last Documented On 9 2:51PM By Corrine Powell ; [facility] Dilaudid 2 MG Oral Tablet 08/15/2019 - 08/17/2019 Provider: Mason hunter MD Diagnosis: 1-2 po q6h prn pain (RESCUE PAIN) DO NOT FILL TILL 08/17/2019 FOR SURGERY Last Documented On 9 12:40PM By Corrine Powell ; [facility] Mupirocin 2% External Ointment 08/14/2019 - 08/19/2019 Provider: Mason hunter MD Diagnosis: three times a day Apply to n ostrils 3 time a day 5 days prior to surgery. Last Documented On 9 2:11PM By Johnna Hamilton ; [facility] Medications Administered Includes: Administered Medications from this encounter No Administered Medications Recorded Vital Signs Includes: Vital Signs from this encounter Vital Name 12/05/2024 03:33P Height (in) 70 Weight (lb) 245 Body Mass Index 35.2 Body Surface Area 2.3 Pain Level 5 Last Documented: On 12/05/2024 3:34PM ; [facility] Results Includes: Results discussed during this encounter No Results Recorded For Specified Dates History of Present Illness Includes: History of Present Illness from this encounter RAMIRO Garland is a 69 year old male. - Allergy list reviewed - Problem list reviewed - Medication list reviewed - - Review of medications documented Patient was last seen in the office in October we are awaiting the MRI of his neck this has been ongoing sometimes since late last year pain will radiate down the back of the left arm to about the elbow. Seems relatively constant rates it 02/09 he has done some exercises with this in the past of couple years ago he has been responded well to a he epidural steroid injection. Patient is on Plavix. No balance issues bowel or bladder issues Social History Description Last Updated Exercising regularly 06/17/2025 Last Documented On 5 2:56PM ; [facility] Not using drugs 06/17/2025 Last Documented On 5 2:56PM ; [facility] Tobacco non-user 07/01/2022 Last Documented On 5 2:56PM ; [facility] No recent change in diet 09/03/2021 Last Documented On 5 2:56PM ; [facility] Not a current smoker. 09/03/2021 Last Documented On 5 2:56PM ; [facility] Non-smoker 04/16/2021 Last Documented On 5 2:56PM ; [facility] No tobacco use 07/06/2019 Last Documented On 5 2:56PM ; [facility] Smoking status : Never smoker 07/06/2019 Last Documented On 5 2:56PM ; [facility] Alcohol use 07/06/2019 Last Documented On 5 2:56PM ; [facility] Caffeine use 07/06/2019 Last Documented On 5 2:56PM ; [facility] No recent change in diet 07/06/2019 Last Documented On 5 2:56PM ; [facility] Not a current smoker 07/06/2019 Last Documented On 5 2:56PM ; [facility], [facility] Procedures and Surgical History Surgical History Last Updated History of back surgery 09/03/2021 Last Documented On 5 2:56PM ; [facility] History of heart surgery 09/03/2021 Last Documented On 5 2:56PM ; [facility], [facility] History of total knee arthroplasty 07/06 Last Documented On 5 2:56PM ; [facility], [facility] Medical History Includes: Medical History addressed during this encounter Description Last Updated History of diabetes mellitus A1C 5.5% 05/04/2024 Last Documented On 5 2:56PM ; [facility] History of arthritis 09/03/2021 Last Documented On 5 2:56PM ; [facility] History of Heartburn / Acid Reflux 09/03 Last Documented On 5 2:56PM ; [facility] History of Hypertension 09/03/2021 Last Documented On 5 2:56PM ; [facility] History of Sleep Apnea 09/03/2021 Last Documented On 5 2:56PM ; [facility] Use of CPAP 09/03/2021 Last Documented On 5 2:56PM ; [facility] No recent immunization for pneumococcal pneumonia 08/05/2021 Last Documented On 5 2:56PM ; [facility] Recent immunization for flu 08/05/2021 Last Documented On 5 2:56PM ; [facility] stints, gastric bypass, seizure disorder , heartburn/acid reflux 07/06/2019 Last Documented On 5 2:56PM ; [facility] Arthritic joint problems 07/06/2019 Last Documented On 5 2:56PM ; [facility] History of heart disease 07/06/2019 Last Documented On 5 2:56PM ; [facility] Intermittent hypertension 07/06/2019 Last Documented On 5 2:56PM ; [facility] Family History Includes: Family History addressed during this encounter Description Last Updated Diabetes mellitus 09/03/2021 Last Documented On 5 2:56PM ; [facility] Stroke / Seizures 09/03/2021 Last Documented On 5 2:56PM ; [facility] stroke/seizures 07/06/2019 Last Documented On 5 2:56PM ; [facility] Family history of heart disease 07/06/20 Last Documented On 5 2:56PM ; [facility] Family history of hypertension 9 Last Documented On 5 2:56PM ; [facility] Family history of osteoporosis 9 Last Documented On 5 2:56PM ; [facility] Review of Systems Includes: Review of Systems from this encounter No Review of Systems Recorded Mental Status Includes: Mental Status from this encounter No Mental Status Recorded Functional Status Includes: Functional Status from this encounter No Functional Status Recorded Physical Exam Includes: Physical Exam from this encounter Allergies Includes: Active Allergies No Known Allergies Encounters Encounter Provider Location Date Check-In Time Check-Out Time Diagnosis Follow Up Tonio Quinonez PA-C [facility] 5 2:41PM 3:14PM Overweight Insurance Includes: Active Insurance Policies Plan Name Member ID Group # Subscriber Relationship Effect karen Dates 1 - [employer] [id number] Dani Garland Se lf Clinical Notes Includes: Clinical Notes from this encounter * Progress note Date Encounter Last Documented by 12/05/2024 Follow Up Last documented on 12/19/2024; 12:58 PM, Tonio Freeman; [facility] Active Problems & Conditions - Foot Pain (Soft Tissue) - Joint Pain in the Right Knee - Lower Back Pain - Neck Pain Chief Complaint The Chief Complaint is: Cervical pain. Referred Here Referred by Tony Roa PCP. History of Present Illness Dani Garland is a 69 year old male. - Allergy list reviewed - Problem list reviewed - Medication list reviewed - - Review of medications documented Patient was last seen in the office in October we are awaiting the MRI of his neck this has been ongoing sometimes since late last year pain will radiate down the back of the left arm to about the elbow. Seems relatively constant rates it 5/10 he has done some exercises with this in the past of couple years ago he has been responded well to a he epidural steroid injection. Patient is on Plavix. No balance issues bowel or bladder issues Current Medication - amLODIPine Besylate 2.5 MG Oral Tablet take as directed 0 days, 0 refills - Aspirin 81 MG Oral Tablet Chewable take as directed 0 days, 0 refills - Atorvastatin Calcium 40 MG Oral Tablet 30 days, 0 refills - Carvedilol 25 MG Oral Tablet 30 days, 0 refills - Clopidogrel Bisulfate 75 MG Oral Tablet 30 days, 0 refills - Colestipol HCl 1 GM Oral Tablet 30 days, 0 refills - [facility] Magnesium Oxide 500 MG Oral Tablet take as directed 0 days, 0 refills - Dapagliflozin Propanediol 10 MG Oral Tablet 30 days, 0 refills - dexAMETHasone Sodium Phosphate 4 MG/ML Injection Solution use as directed 1-2 mL per visit; for topical use with iontophoresis in physical therapy, 30 days, 0 refills - Divalproex Sodium 500 MG Oral Tablet Delayed Release take as directed 0 days, 0 refills - Farxiga 10 MG Oral Tablet 30 days, 0 refills - Gabapentin 100 MG Oral Capsule 30 days, 0 refills - hydroCHLOROthiazide 25 MG Oral Tablet 30 days, 0 refills - Losartan Potassium 25 MG Oral Tablet 30 days, 0 refills - Meloxicam 15 MG Oral Tablet once a day with food, 30 days, 0 refills - metFORMIN HCl 1000 MG Oral Tablet 30 days, 0 refills - Methocarbamol 500 MG Oral Tablet 5 days, 0 refills - Omeprazole 40 MG Oral Capsule Delayed Release 30 days, 0 refills - Plavix 75 MG Oral Tablet as needed 0 days, 0 refills - rOPINIRole HCl 5 MG Oral Tablet as needed 0 days, 0 refills - traZODone HCl 50 MG Oral Tablet 30 days, 0 refills - Verapamil HCl ER 180 MG Oral Tablet Extended Release 30 days, 0 refills Past Medical/Surgical History Reported: Use of CPAP. Medical: Arthritic joint problems. Intermittent hypertension. Immunization History: Recent immunization for flu. No recent immunization for pneumococcal pneumonia. Diagnoses: Heart disease. Sleep Apnea Heartburn / Acid Reflux Hypertension. Diabetes mellitus A1C 5.5% 07/2023. Arthritis Stints, gastric bypass, seizure disorder, heartburn/acid reflux. Surgical: - Heart surgery - Back surgery - Total knee arthroplasty Social History Not a current smoker. Current diet: No recent change in diet. No recent change in diet. Caffeine use: Caffeine use. Tobacco use: No tobacco use and not a current smoker. Tobacco non-user and non-smoker. Smoking status: Never smoker. Alcohol: Alcohol use. Drug Use: Not using drugs. Habits: Exercising regularly. Allergies - No Known Allergies Family History Heart disease Stroke / Seizures Diabetes mellitus Stroke/seizures Systemic hypertension Osteoporosis Physical Findings - Vitals taken 12/05/2024 03:33 pm Height 70 in Weight 245 lbs Body Mass Index 35.2 kg/m2 Body Surface Area 2.3 m2 Pain Level 5 Pleasant oriented x3 this 5/5 biceps triceps deltoids wrist extension flexes strength on the right On the left 4+ out of 5 triceps strength 5/5 biceps deltoids wrist extension and flexion strength and no long tract findings Tests Cervical x-rays two views show degenerative changes C5-C6 C6-C7 10/16/2024 Cervical spine MRI does show a disc osteophyte complex at C6-C7 which matches his symptoms Assessment - Overweight C6-C7 disc osteophyte complex and foraminal stenosis Previous Tests Available previous imaging studies were reviewed Available previous history reviewed Counseling/Education - Tobacco non-user - Use of tobacco assessment performed - Lose weight Plan - Patient screened for future fall risk: documentation of any fall with injury in past year Fall Risk Assessment: This patient has been identified as a fall risk. Balance/gait along with postural blood pressure, vision and home fall hazards have been assessed. Medications have been reviewed, and recommendations made with regard to contributing factors for future falls. Plan of care: Consideration of vitamin D supplementation along with balance and strength training with consideration for formal physical therapy has been discussed with the patient. Patient was seen by myself Tonio Quinonez PA-C. Patient will follow up 4 weeks post injection with myself and Dr. Macias. We will set him up for another epidural injection at C6-C7 and see if this helps him again. He will need to be off his Plavix prior to the injection Notes This dictation was done with voice recognition software and may contain errors and omissions. Care Team - TONY ROA MD - FINISH PATCHER
--- OUTSIDE RECORDS SUMMARY | 2025-07-02 07:54 | XMS_ITS | Clinical Summary ---
Author Organization [facility] , [facility] Address [address] [place] [address] Phone Care Team Providers Care Insulating Machine Operator Name Role Phone JANINA BYNUM, MACKENZIE Unavailable [phone] Samia BYNUM, Mason Carrizales Unavailable [phone] Reason for Visit and Chief Complaint MRI Problems Includes: Problems addressed during this encounter and other active Problems All Visits Onset Date Resolved Date Provider Condition S tatus Foot Pain Soft Tissue 03/13/2024 Marito Mclain DPM Active Last Documented On 4 3:19PM ; [facility], [facility] Neck Pain 10/28/2022 Alfonso Macias MD Active Last Documented On 3 8:04AM ; [facility] Lower Back Pain 08/25/2020 Alfonso Macias MD Act kaern Last Documented On 0 10:34AM ; [facility], [facility] Joint Pain Right Knee 07/06/2019 Mason Gracia MD Active Last Documented On 9 1:02PM ; [facility], [facility] Plan of Treatment Future Appointments Date Time Location Provi antwan Follow Up 07/04/2025 8:30AM [facility] Alfonso Macias MD Last Documented On 5 3:02PM ; [facility], [facility] Assessments Includes: Assessments from this encounter No Assessments Recorded Medical Equipment - Implanted Devices Includes: Current Devices No Medical Equipment Recorded Medications Includes: Medications discussed during this encounter and other current Medications Current Medications (continue as prescribed) Celecoxib 100 MG Oral Capsule 06/17/2025 Provider: Diagnosis: Last Documented On 5 3:09PM By Sriram Yang ; [facility], [facility] traZODone HCl 100 MG Oral Tablet 06/17/2025 Provider : Diagnosis: Last Documented On 5 3:09PM By Sriram Yang ; [facility], [facility] Fluticasone Propionate 50 MC G/ACT Nasal Suspension 06/11/2025 Provider: Josephine denney APRN Diagnosis: Last Documented On 5 2:48PM By Sriram Yang ; [facility], [facility] Pantoprazole Sodium 40 MG Oral Tablet Delayed Release 05/02/2025 Provider: Diagnosis: Last Documented On 5 2:48PM By Sriram Yang ; [facility], [facility] Metoprolol Succinate ER 25 M G Oral Tablet Extended Release 24 Hour 04/16/2025 Provider: Diagnosis: Last Documented On 5 2:48PM By Sriram Yang ; [facility] Ozempic (1 MG/DOSE) 4 MG/3ML Subcutaneous Solution Pen-injector 01/30/2025 Provider: MACKENZIE ROA MD Diagnosis: Last Documented On 5 2:48PM By Sriram Yang ; [facility], [facility] Sure Comfort Insulin Syringe 29G X 1/2 1 ML Miscellaneous 12/14/2024 Provider: PEDRO FERGUSON MD Diagnosis: Last Documented On 5 2:48PM By Sriram Yang ; [facility] Verapamil HCl ER 180 MG Oral Tablet Extended Release 11/30/2024 Provider: MACKENZIE ROA MD Diagnosis: Last Documented On 5 2:56PM By Sriram aYng ; [facility], [facility] Farxiga 10 MG Oral Tablet 11/15/2024 Provider: ST JOSE ROA MD Diagnosis: Last Documented On 5 2:56PM By Sriram Yang ; [facility], [facility] dexAMETHasone Sodium Phospha te 4 MG/ML Injection Solution 03/13/2024 Provider: Marito Mclain DPM Diagnosis: use as directed 1-2 mL per v isit; for topical use with iontophoresis in physical therapy Last Documented On 4 4:15PM By Hollie Bocanegra ; [facility] Meloxicam 15 MG Oral Tablet 03/13/2024 Provider: Marito Mclain DPM Diagnosis: once a day with food Last Documented On 4 4:15PM By Hollie Bocanegra ; [facility] Losartan Potassium 25 MG Oral Tablet 03/05/2024 Prov ider: MACKENZIE ROA MD Diagnosis: Last Documented On 4 3:20PM By Mona Ken ; [facility] Dapagliflozin Propanediol 10 MG Oral Tablet 03/05/2024 Provider: MACKENZIE ROA MD Diagnosis: Last Documented On 4 3:20PM By Mona Ken ; [facility] Clopidogrel Bisulfate 75 MG Oral Tablet 03/05/2024 Aspen hartder: MACKENZIE ROA MD Diagnosis: Last Documented On 4 3:20PM By Mona Ken ; [facility] Methocarbamol 500 MG Oral Tablet 06/21/2022 Provider : MACKENZIE ROA MD Diagnosis: Last Documented On 2 1:44PM By Huma Sears ; [facility] Plavix 75 MG Oral Tablet 01/21/2022 Provider: Diagnosis: Last Documented On 2 8:50AM By Deisy Jaramillo ; [facility] rOPINIRole HCl 5 MG Oral Tablet 01/21/2022 Provider: Diagnosis: Last Documented On 2 8:50AM By Deisy Jaramillo ; [facility] Aspirin 81 MG Oral Tablet Chewable 09/03/2021 Provid er: Diagnosis: Last Documented On 1 10:54AM By Keri Zhao ; [facility] Divalproex Sodium 500 MG Oral Tablet Delayed Release 1 11/04/2020 Provider: Diagnosis: Last Documented On 1 10:55AM By Keri Zhao ; [facility] Magnesium Oxide 500 MG Oral Tablet 07/06/2019 Pr ovider: Diagnosis: Last Documented On 9 1:05PM By Jen Ramirez ; [facility] amLODIPine Besylate 2.5 MG Oral Tablet 07/06/2019 Pr ovider: Diagnosis: Last Documented On 9 1:04PM By Jen Ramirez ; [facility], [facility] Atorvastatin Calcium 40 MG Oral Tablet 07/04/2019 Pr ovider: MACKENZIE ROA MD Diagnosis: Last Documented On 9 1:03PM By Jen Ramirez ; [facility], [facility] metFORMIN HCl 1000 MG Oral Tablet 07/04/2019 Provide r: MACKENZIE ROA MD Diagnosis: Last Documented On 9 1:03PM By Jen Ramirez ; [facility], [facility] traZODone HCl 50 MG Oral Tablet 07/04/2019 Provider: MACKENZIE ROA MD Diagnosis: Last Documented On 9 1:05PM By Jen Ramirez ; [facility], [facility] Omeprazole 40 MG Oral Capsule Delayed Release 06/04/20 Provider: MACKENZIE RAO MD Diagnosis: Last Documented On 9 1:05PM By Jen Ramirez ; [facility], [facility] Carvedilol 25 MG Oral Tablet 01/06/2019 Provider: Diagnosis: Last Documented On 9 1:04PM By Jen Ramirez ; [facility], [facility] Colestipol HCl 1 GM Oral Tablet 01/06/2019 Provider: DANI ASKEW MD (CR) Diagnosis: Last Documented On 9 1:03PM By Jen Ramirez ; [facility], [facility] hydroCHLOROthiazide 25 MG Oral Tablet 01/06/2019 Pro vider: Diagnosis: Last Documented On 9 1:03PM By Jen Ramirez ; [facility], [facility] Gabapentin 100 MG Oral Capsule 12/07/2018 Provider: MACKENZIE ROA MD Diagnosis: Last Documented On 9 1:03PM By Jen Ramirez ; [facility] Medications Administered Includes: Administered Medications from this encounter No Administered Medications Recorded Results Includes: Results discussed during this encounter No Results Recorded For Specified Dates History of Present Illness Includes: History of Present Illness from this encounter No History of Present Illness Recorded Social History No Social History Recorded - Smoking Status Unknown Procedures and Surgical History Includes: Procedures from this encounter Procedures Code Diagnosis Performing Provider Service Location Service Date MRI LUMBAR SPINE W/O DYE 81566 Other low back pain Alfonso Macias MD [facility] 06/25/2025 Last Documented On 5 9:52AM ; [facility] Medical History Includes: Medical History addressed during this encounter No Medical History Recorded Family History Includes: Family History addressed during this encounter No Family History Recorded Review of Systems Includes: Review of Systems from this encounter No Review of Systems Recorded Mental Status Includes: Mental Status from this encounter No Mental Status Recorded Functional Status Includes: Functional Status from this encounter No Functional Status Recorded Physical Exam Includes: Physical Exam from this encounter No Physical Exam Recorded Allergies Includes: Active Allergies No Known Allergies Encounters Encounter Provider Location Date Check-In Time Check-Out Time Diagnosis MRI [facility] 06/25/2025 2:56PM 4:29PM Insurance Includes: Active Insurance Policies Plan Name Member ID Group # Subscriber Relationship Effect karen Dates 1 - [employer] [id number] Dani Garland Jr Se lf Clinical Notes Includes: Clinical Notes from this encounter No Clinical Notes Recorded
--- OUTSIDE RECORDS SUMMARY | 2025-07-02 07:54 | XMS_ITS ---
Care Plan - [facility], [facility] Created on: July 02, 2025 Dani Garland Jr : 1955 Sex: Male Author Organization [facility] , [facility] Address [address] [place] [address] Phone Care Team Providers Care Barrel Roller Name Role Phone JANINA BYNUM, MACKENZIE Unavailable [phone] Samia BYNUM, Mason Carrizales Unavailable [phone]
--- OUTSIDE RECORDS SUMMARY | 2025-07-02 07:55 | XMS_ITS | Clinical Summary ---
Author Organization [facility] , [facility] Address [address] [place] [address] Phone Care Team Providers Care Frame Stripper Name Role Phone JANINA BYNUM, MACKENZIE Unavailable [phone] Samia BYNUM, Mason Carrizales Unavailable [phone] Reason for Visit and Chief Complaint Epidural Steroid Injection Problems Includes: Problems addressed during this encounter and other active Problems All Visits Onset Date Resolved Date Provider Condition S tatus Foot Pain Soft Tissue 03/13/2024 Marito Mclain DPM Active Last Documented On 4 3:19PM ; [facility], [facility] Neck Pain 10/28/2022 Alfonso Macias MD Active Last Documented On 3 8:04AM ; [facility] Lower Back Pain 08/25/2020 Alfonso Macias MD Act karen Last Documented On 0 10:34AM ; [facility], [facility] Joint Pain Right Knee 07/06/2019 Mason Gracia MD Active Last Documented On 9 1:02PM ; [facility], [facility] Plan of Treatment Future Appointments Date Time Location Provi antwan Follow Up 07/04/2025 8:30AM [facility] Alfonso Macias MD Last Documented On 5 3:02PM ; [facility], [facility] Assessments Includes: Assessments from this encounter No Assessments Recorded Medical Equipment - Implanted Devices Includes: Current Devices No Medical Equipment Recorded Medications Includes: Medications discussed during this encounter and other current Medications Current Medications (continue as prescribed) Celecoxib 100 MG Oral Capsule 06/17/2025 Provider: Diagnosis: Last Documented On 5 3:09PM By Sriram Yang ; [facility], [facility] traZODone HCl 100 MG Oral Tablet 06/17/2025 Provider : Diagnosis: Last Documented On 5 3:09PM By Sriram Yang ; [facility], [facility] Fluticasone Propionate 50 MC G/ACT Nasal Suspension 06/11/2025 Provider: Josephine denney APRN Diagnosis: Last Documented On 5 2:48PM By Sriram Yang ; [facility], [facility] Pantoprazole Sodium 40 MG Oral Tablet Delayed Release 05/02/2025 Provider: Diagnosis: Last Documented On 5 2:48PM By Sriram Yang ; [facility], [facility] Metoprolol Succinate ER 25 M G Oral Tablet Extended Release 24 Hour 04/16/2025 Provider: Diagnosis: Last Documented On 5 2:48PM By Sriram Yang ; [facility] Ozempic (1 MG/DOSE) 4 MG/3ML Subcutaneous Solution Pen-injector 01/30/2025 Provider: MACKENZIE ROA MD Diagnosis: Last Documented On 5 2:48PM By Sriram Yang ; [facility], [facility] Sure Comfort Insulin Syringe 29G X 1/2 1 ML Miscellaneous 12/14/2024 Provider: PEDRO FERGUSON MD Diagnosis: Last Documented On 5 2:48PM By Sriram Yang ; [facility], [facility] Verapamil HCl ER 180 MG Oral Tablet Extended Release 11/30/2024 Provider: MACKENZIE ROA MD Diagnosis: Last Documented On 5 2:56PM By Sriram Yang ; [facility], [facility] Farxiga 10 MG Oral Tablet 11/15/2024 Provider: ST JOSE ROA MD Diagnosis: Last Documented On 5 2:56PM By Sriram Yang ; [facility], [facility] dexAMETHasone Sodium Phospha te 4 MG/ML Injection [...] On 4 4:15PM By Hollie Bocanegra ; [facility] Losartan Potassium 25 MG Oral Tablet 03/05/2024 Prov ider: MACKENZIE ROA MD Diagnosis: Last Documented On 4 3:20PM By Mona Ken ; [facility] Dapagliflozin Propanediol 10 MG Oral Tablet 03/05/2024 Provider: MACKENZIE ROA MD Diagnosis: Last Documented On 4 3:20PM By Mona Ken ; [facility] Clopidogrel Bisulfate 75 MG Oral Tablet 03/05/2024 Aspen hartder: MACKENZIE ROA MD Diagnosis: Last Documented On 4 3:20PM By Mona Ken ; [facility] Methocarbamol 500 MG Oral Tablet 06/21/2022 Provider : MACKENZIE ROA MD Diagnosis: Last Documented On 2 1:44PM By Huma Sears ; [facility] Plavix 75 MG Oral Tablet 01/21/2022 Provider: Diagnosis: Last Documented On 2 8:50AM By Deisy Jaramillo ; [facility] rOPINIRole HCl 5 MG Oral Tablet 01/21/2022 Provider: Diagnosis: Last Documented On 2 8:50AM By Deisy Jaramillo ; [facility] Aspirin 81 MG Oral Tablet Chewable 09/03/2021 Provid er: Diagnosis: Last Documented On 1 10:54AM By Keri Zhao ; [facility] Divalproex Sodium 500 MG Oral Tablet Delayed Release 1 11/04/2020 Provider: Diagnosis: Last Documented On 1 10:55AM By Keri Zhao ; [facility] Magnesium Oxide 500 MG Oral Tablet 07/06/2019 Pr ovider: Diagnosis: Last Documented On 9 1:05PM By Jen Ramirez ; [facility] amLODIPine Besylate 2.5 MG Oral Tablet 07/06/2019 Pr ovider: Diagnosis: Last Documented On 9 1:04PM By Jen Ramirez ; [facility], [facility] Atorvastatin Calcium 40 MG Oral Tablet 07/04/2019 Pr ovider: MACKENZIE ROA MD Diagnosis: Last Documented On 9 1:03PM By Jen Ramirez ; [facility], [facility] metFORMIN HCl 1000 MG Oral Tablet 07/04/2019 Provide r: MACKENZIE ROA MD Diagnosis: Last Documented On 9 1:03PM By Jen Ramirez ; [facility], [facility] traZODone HCl 50 MG Oral Tablet 07/04/2019 Provider: MACKENZIE ROA MD Diagnosis: Last Documented On 9 1:05PM By Jen Ramirez ; [facility], [facility] Omeprazole 40 MG Oral Capsule Delayed Release 06/04/20 Provider: MACKENZIE ROA MD Diagnosis: Last Documented On 9 1:05PM By Jen Ramirez ; [facility], [facility] Carvedilol 25 MG Oral Tablet 01/06/2019 Provider: Diagnosis: Last Documented On 9 1:04PM By Jen Ramirez ; [facility], [facility] Colestipol HCl 1 GM Oral Tablet 01/06/2019 Provider: DANI ASKEW MD () Diagnosis: Last Documented On 9 1:03PM By Jen Ramirez ; [facility], [facility] hydroCHLOROthiazide 25 MG Oral Tablet 01/06/2019 Pro vider: Diagnosis: Last Documented On 9 1:03PM By Jen Ramirez ; [facility], [facility] Gabapentin 100 MG Oral Capsule 12/07/2018 Provider: MACKENZIE ROA MD Diagnosis: Last Documented On 9 1:03PM By Jen Ramirez ; [facility], [facility] Medications Administered Includes: Administered Medications from this [...] Diagnosis Performing Provider Service Location Service Date Cervical/Thoraci c epidural injection [id number] Cervical disc disorder at C6-C7 level with radiculopathy Allan Mel[facility] 12/26/2024 Last Documented On 5 1:02PM ; [facility] Triamcinolone/Kenalog, 10mg per cc [id number] Cervical disc disorder at C6-C7 level with radiculopathy Allan Melton [facility] 12/26/2024 Last Documented On 5 1:02PM ; [facility] Medical History Includes: Medical History addressed [...] Location Date Check-In Time Check-Out Time Diagnosis Epidural Steroid Injection Allan Melton [facility] 12/27/19 1:11PM 1:41PM Insurance Includes: Active Insurance Policies Plan Name Member ID Group # Subscriber Relationship Effect karen Dates 1 - [employer] [id number] Dani Garland Jr Se lf Clinical Notes Includes: Clinical Notes from this encounter No Clinical Notes Recorded
--- OUTSIDE RECORDS SUMMARY | 2025-07-02 07:55 | XMS_ITS | Encounter Summary ---
Author Organization [facility] Address [address] [place] [address] Care Team Providers Care Packaging Engineer Name Role Phone Unavailable Primary Care Provider Unavailabl e Reason for Visit * Reason Onset Date Comments Other 05/29/2025 History and Phys ical schedule and how to get it to [facility] Encounter Details Date Type Department Care Team (Late st Contact Info) Description 05/29/[address] [facility] Physicians - Ear, Nose & Throat, [address] [place] [address] Meghna Solis RN Other (History and Physical schedule and how to get it to [facility]) Social History Tobacco Use Types Packs/Day [...] fax number so this is scanned into [facility]. documented in this encounter Plan of Treatment Upcoming Encounters Date Type Department Care Team (Latest Contact Info) Description 07/03/2025 11:10 AM EDT Hospital Encounter Periop [address]Level [address] [place] [address] Shaan Day MD [address] [place] [address] 07/03/2025 11:10 AM EDT - 07/03/2025 12:25 PM EDT Surgery Periop [address]Level [address] [place] [address] Shaan Day MD [address] [place] [address] Insertion of hypoglossal nerve stimulator 07/09/2025 8:30 AM EDT Appointment [facility] Physicians - Ear, Nose & Throat, [address] [place] [address] Shaan Day MD [address] [place] [address] Scheduled Procedures Name Priority Associated Diagnoses Date/Ti me IMPLANT HYPOGLOSSAL NERVE STIMULATOR SYSTEM 5 Obstructive sleep apnea 07/03/2025 11:10 AM EDT documented as of this encounter Visit Diagnoses Not on filedocumented in this encounter
--- OUTSIDE RECORDS SUMMARY | 2025-07-02 07:55 | XMS_ITS | Encounter Summary ---
Author Organization [facility] Address [address] [place] [address] Care Team Providers Care Sinter Press Operator Name Role Phone Unavailable Primary Care Provider Unavailabl e Reason for Visit * Reason Onset Date Comments Follow-up 05/31/2025 On needed inform ation for upcoming procedure Encounter Details Date Type Department Care Team (Late st Contact Info) Description 05/31/2025 Telephone [facility] Physicians - Ear, Nose & Throat, [address] Office [address] [place] [address] Meghna Solis RN Follow-up (On [...] Encounter - Meghna Solis RN - 05/31/2025 11:52 AM EDT [...] AM EDT Hospital Encounter Periop B-Level [address] [place] [address] Shaan Day MD [address] [place] [address] 07/03/2025 11:10 AM EDT - 07/03/2025 12:25 PM EDT Surgery Periop B-Level [address] [place] [address] Shaan Day MD [address] [place] [address] Insertion of hypoglossal nerve stimulator 07/09/2025 8:30 AM EDT Appointment [facility] Physicians - Ear, Nose & Throat, [place] [address] [facility] [address] [place] [address] Shaan Day MD [address] [place] [address] Scheduled Procedures Name Priority Associated Diagnoses Date/Ti me IMPLANT HYPOGLOSSAL NERVE STIMULATOR SYSTEM 5 Obstructive sleep apnea 07/03/2025 11:10 AM EDT documented as of this encounter Visit Diagnoses Not on filedocumented in this encounter
--- OUTSIDE RECORDS SUMMARY | 2025-07-02 07:55 | XMS_ITS | Encounter Summary ---
Author Organization [facility] Address [address] [place] [address] Care Team Providers Care Liquefied Natural Gas Plant Operator Name Role Phone Tony Hernandez MD Primary Care Provider [phone] Encounter Details Date Type Department Care Team (Latest Contact Info) Description 06/18/2025 Preop Surgical Orders [facility] Physicians - Ear, Nose & Throat, [place] [address] [place] [address] Shaan Day MD [address] [place] [address] Obstructive sleep apnea (Primary Dx) [...] AM EDT Hospital Encounter Periop B-Level [address] [place] [address] Shaan Day MD [address] [place] [address] 07/03/2025 11:10 AM EDT - 07/03/2025 12:25 PM EDT Surgery Periop B-Level [address] [place] [address] Shaan Day MD [address] [place] [address] Insertion of hypoglossal nerve stimulator 07/09/2025 8:30 AM EDT Appointment [facility] Physicians - Ear, Nose & Throat, [address] [place] [address] Shaan Day MD [address] [place] [address] Scheduled Procedures Name Priority Associated Diagnoses Date/Ti me IMPLANT HYPOGLOSSAL NERVE STIMULATOR SYSTEM 5 Obstructive sleep apnea 07/03/2025 11:10 AM EDT documented as of this encounter Visit Diagnoses Diagnosis Obstructive sleep apnea- Primary Obstructive sleep apnea (adult) (pediatric) Obstructive sleep apnea- Primary Obstructive sleep apnea (adult) (pediatric) Obstructive sleep apnea Obstructive sleep apnea (adult) (pediatric) documented in this encounter Care Teams Liquefied Natural Gas Plant Operator Relationship Specialty Start Date End Date Tony Hernandez MD [address] [place] [id number] PCP - General Internal Medicine 06/05/25 documented as of this encounter
--- OUTSIDE RECORDS SUMMARY | 2025-07-02 07:55 | XMS_ITS | Encounter Summary ---
Author Organization [facility] Address [address] [place] [id number] Care Team Providers Care Flat Drier Name Role Phone Tony Hernandez MD Primary Care Provider [phone] Reason for Visit * Reason Onset Date Comments Prior Authorization 06/17/2025 Encounter Details Date Type Department Care Team (Late st Contact Info) Description 06/17/2025 Telephone [facility]ose & Th[facility]at, [place] [address] [place] [id number] Shaan Day MD [address] [place] [address] Prior Authorization Social History Tobacco [...] 06/17/2025 9:04 AM EDT Inspire: Auth ref# [id number] Codes: 88308, C1787, [id number] Codes: X3681-Dd auth required DX: G47.33 DOS: 06/10/2025-12/28/2025 Facility Name: [facility] documented in this encounter Plan of Treatment Upcoming Encounters Date Type Department Care Team (Latest Contact Info) Description 07/03/2025 11:10 AM EDT Hospital Encounter Periop B-[address] [place] [address] Shaan Day MD [address] [place] [address] 07/03/2025 11:10 AM EDT - 07/03/2025 12:25 PM EDT Surgery Periop B-Level [address] [place] [address] Shaan Day MD [address] [place] [address] Insertion of hypoglossal nerve stimulator 07/09/2025 8:30 AM EDT Appointment [facility] - Ear[facility]ose & Throat, [address] [place] [address] Shaan Day MD [address] [place] [address] Scheduled Procedures Name Priority Associated Diagnoses Date/Ti me IMPLANT HYPOGLOSSAL NERVE STIMULATOR SYSTEM 5 Obstructive sleep apnea 07/03/2025 11:10 AM EDT documented as of this encounter Visit Diagnoses Not on filedocumented in this encounter Care Teams Flat Drier Relationship Specialty Start Date End Date Tony Hernandez MD [address] [place], [place] [id number] PCP - General Internal Medicine 06/05/25 documented as of this encounter
--- OUTSIDE RECORDS SUMMARY | 2025-07-02 07:55 | XMS_ITS | Clinical Summary ---
Author Organization [facility] Address [address] [place] [address] Phone Care Team Providers Care Food Editor Name Role Phone JANINA BYNUM, TONY Unavailable [phone] Samia BYNUM, Mason Carrizales Unavailable [phone] Reason for Visit and Chief Complaint The Chief Complaint is: lower back pain Problems Includes: Problems addressed during this encounter and other active Problems Current Visit Onset Date Resolved Date Provider Conditio n Status Lower Back Pain 08/25/2020 Alfonso Macias MD Act karen Last Documented On 0 10:34AM ; [facility] Past Visits Onset Date Resolved Date Provider Condition Status Foot Pain Soft Tissue 03/13/2024 Marito Mclain DPM Active Last Documented On 4 3:19PM ; [facility] Neck Pain 10/28/2022 Alfonso Macias MD Active Last Documented On 3 8:04AM ; [facility] Joint Pain Right Knee 07/06/2019 Mason Gracia MD Active Last Documented On 9 1:02PM ; [facility] Plan of Treatment - Patient screened for future fall risk: documentation of any fall with injury in past year - Last Documented On 06/18/2025 11:41AM ; [facility] Fall Risk Assessment: This patient has [...] with the patient. - Last Documented On 06/18/2025 11:41AM ; [facility] Patient was seen by myself Tonio Quinonez PA-C. Patient will follow up Dr. Macias after a lumbar spine MRI see if he has any spinal stenosis - Last Documented On 06/18/2025 11:41AM ; [facility] Pending Tests Order Diagnosis Results Due Ordering P rovider Radiology - MRI MRI Lumbar Spine 05/25/22 Irineo Quinonez PA-C Last Documented On 2 7:57AM ; [facility] Radiology - MRI MRI Cervical Spine Cervicalgia 10/30/24 Tonio Quinonez PA-C Last Documented On 5 11:40AM ; [facility] Radiology - MRI MRI Lumbar Spine Low back pain, unspecified 07/01/25 Tonio Quinonez PA-C Last Documented On 5 3:11PM ; [facility] Future Appointments Date Time Location Provi antwan Follow Up 07/04/2025 8:30AM [facility] Alfonso Macias MD Last Documented On 5 3:02PM ; [facility] Instructions to patient Lose weight Last Documented On 5 2:48PM ; [facility] Assessments Includes: Assessments from this encounter Findings - Overweight - Last Documented On 06/18/2025 11:41AM ; [facility] Lumbar DDD - Last Documented On 06/18/2025 11:41AM ; [facility] Instructions Includes: Instructions from this encounter Instructions to patient Lose weight Last Documented On 5 2:48PM ; [facility] Medical Equipment - Implanted Devices Includes: Current Devices No Medical Equipment Recorded Medications Includes: Medications discussed during this encounter and other current Medications Current Medications (continue as prescribed) Celecoxib 100 MG Oral Capsule 06/17/2025 Provider: Diagnosis: Last Documented On 5 3:09PM By Sriram Yang ; [facility] traZODone HCl 100 MG Oral Tablet 06/17/2025 Provider : Diagnosis: Last Documented On 5 3:09PM By Sriram Yang ; [facility] Fluticasone Propionate 50 MC G/ACT Nasal Suspension 06/11/2025 Provider: Josephine denney APRN Diagnosis: Last Documented On 5 2:48PM By Sriram Yang ; [facility] Pantoprazole Sodium 40 MG Oral Tablet Delayed Release 05/02/2025 Provider: Diagnosis: Last Documented On 5 2:48PM By Sriram Yang ; [facility] Metoprolol Succinate ER 25 M G Oral Tablet Extended Release 24 Hour 04/16/2025 Provider: Diagnosis: Last Documented On 5 2:48PM By Sriram Yang ; [facility] Ozempic (1 MG/DOSE) 4 MG/3ML Subcutaneous Solution Pen-injector 01/30/2025 Provider: TONY ROA MD Diagnosis: Last Documented On 5 2:48PM By Sriram Yang ; [facility] Sure Comfort Insulin Syringe 29G X 1/2 1 ML Miscellaneous 12/14/2024 Provider: PEDRO FERGUSON MD Diagnosis: Last Documented On 5 2:48PM By Sriram Yang ; [facility] Verapamil HCl ER 180 MG Oral Tablet Extended Release 11/30/2024 Provider: TONY RAO MD Diagnosis: Last Documented On 5 2:56PM By Sriram Yang ; [facility] Farxiga 10 MG Oral Tablet 11/15/2024 Provider: [facility] ROA MD Diagnosis: Last Documented On 5 2:56PM By Sriram Yang ; [facility] dexAMETHasone Sodium Phospha te 4 MG/ML Injection Solution 03/13/2024 Provider: Marito Mclain DPM Diagnosis: use as directed 1-2 mL per v isit; for topical use with iontophoresis in physical therapy Last Documented On 4 4:15PM By Hollie Bocanegra ; [facility] Meloxicam 15 MG Oral Tablet 03/13/2024 Provider: Marito Mclain DPM Diagnosis: once a day with food Last Documented On 4 4:15PM By Hollie Bocanegra ; [facility] Losartan Potassium 25 MG Oral Tablet 03/05/2024 Prov ider: TONY ROA MD Diagnosis: Last Documented On 4 3:20PM By Mona Ken ; [facility] Dapagliflozin Propanediol 10 MG Oral Tablet 03/05/2024 Provider: TONY ROA MD Diagnosis: Last Documented On 4 3:20PM By Mona Ken ; [facility] Clopidogrel Bisulfate 75 MG Oral Tablet 03/05/2024 P rovider: TONY ROA MD Diagnosis: Last Documented On 4 3:20PM By Mona Ken ; [facility] Methocarbamol 500 MG Oral Tablet 06/21/2022 Provider : TONY ROA MD Diagnosis: Last Documented On 2 1:44PM By Huma Sears ; [facility] Plavix 75 MG Oral Tablet 01/21/2022 Provider: Diagnosis: Last Documented On 2 8:50AM By Deisy Jaramillo ; [facility] rOPINIRole HCl 5 MG Oral Tablet 01/21/2022 Provider: Diagnosis: Last Documented On 2 8:50AM By Deisy Jaramillo ; [facility] Aspirin 81 MG Oral Tablet Chewable 09/03/2021 Provid er: Diagnosis: Last Documented On 1 10:54AM By Keri Zhao ; [facility] Divalproex Sodium 500 MG Oral Tablet Delayed Release 1 11/04/2020 Provider: Diagnosis: Last Documented On 1 10:55AM By Keri Zhao ; [facility] Magnesium Oxide 500 MG Oral Tablet 07/06/2019 Pr ovider: Diagnosis: Last Documented On 9 1:05PM By Jen Ramirez ; [facility] amLODIPine Besylate 2.5 MG Oral Tablet 07/06/2019 Pr ovider: Diagnosis: Last Documented On 9 1:04PM By Jen Ramirez ; [facility] Atorvastatin Calcium 40 MG Oral Tablet 07/04/2019 Pr ovider: TONY ROA MD Diagnosis: Last Documented On 9 1:03PM By Jen Ramirez ; [facility] metFORMIN HCl 1000 MG Oral Tablet 07/04/2019 Provide r: TONY ROA MD Diagnosis: Last Documented On 9 1:03PM By Jen Ramirez ; [facility] traZODone HCl 50 MG Oral Tablet 07/04/2019 Provider: TONY ROA MD Diagnosis: Last Documented On 9 1:05PM By Jen Ramirez ; [facility] Omeprazole 40 MG Oral Capsule Delayed Release 06/04/20 Provider: TONY ROA MD Diagnosis: Last Documented On 9 1:05PM By Jen Ramirez ; [facility] Carvedilol 25 MG Oral Tablet 01/06/2019 Provider: Diagnosis: Last Documented On 9 1:04PM By Jen Ramirez ; [facility] Colestipol HCl 1 GM Oral Tablet 01/06/2019 Provider: DANI ASKEW MD () Diagnosis: Last Documented On 9 1:03PM By Jen Ramirez ; [facility] hydroCHLOROthiazide 25 MG Oral Tablet 01/06/2019 Pro vider: Diagnosis: Last Documented On 9 1:03PM By Jen Ramirez ; [facility] Gabapentin 100 MG Oral Capsule 12/07/2018 Provider: TONY ROA MD Diagnosis: Last Documented On 9 1:03PM By Jen Ramirez ; [facility] Past Medications on file Naproxen 500 MG Oral Tablet 07/01/2022 - 08/30/2022 Pr ovider: Alfonso Macias MD Diagnosis: twice a day Last Documented On 2 2:16PM By Keri Zhao ; [facility] Percocet 5-325 MG Oral Tablet 12/07/2021 - 12/22/2021 Provider: Alfonso Macias MD Diagnosis: 1 po q 4h prn pain Last Documented On 2 9:38AM By Alfonso Macias ; [facility] Percocet 5-325 MG Oral Tablet 07/20/2021 - 08/04/2021 Provider: Alfonso Macias MD Diagnosis: 1 po q 4h prn pain Last Documented On 1 11:52AM By Alfonso Macias ; [facility] Mobic 15 MG Oral Tablet 08/17/2019 - 09/16/2019 Provid er: Mason Gracia MD Diagnosis: once a day DO NOT FILL TIL L 08/17/2019 FOR SURGERY Last Documented On 9 2:51PM By Corrine Powell ; [facility] traMADol HCl 50 MG Oral Tablet 08/17/2019 - 08/22/2019 Provider: Mason hunter MD Diagnosis: 1-2 po q6h prn pain DO NOT FILL TILL 08/17/2019 FOR SURGERY Last Documented On 9 2:51PM By Corrine Powell ; [facility] Zofran 4 MG Oral Tablet 08/17/2019 - 08/22/2019 Provid er: Mason Gracia MD Diagnosis: [id number] DO NOT FILL TILL 08/17/2019 FOR SURGERY Last Documented On 9 2:51PM By Corrine Powell ; [facility] Acetaminophen 500 MG Oral Tablet 08/17/2019 - 09/16/2019 Provider: Mason Gracia MD Diagnosis: 2 three times a day DO NOT FILL TILL 08/17/2019 FOR SURGERY Last Documented On 9 2:50PM By Corrine Powell ; [facility] oxyCODONE HCl 5 MG Oral Tablet 08/17/2019 - 08/22/2019 Provider: Ashu banerjee MD Diagnosis: 1-2 po q6h prn pain Last Documented On 9 2:47PM By Corrine Powell ; [facility] Neurontin 300 MG Oral Capsule 08/17/2019 - 11/15/2019 Provider: Mason hunter MD Diagnosis: 1 every bedtime DO NOT FIDENCIO L TILL 08/17/2019 FOR SURGERY Last Documented On 9 2:51PM By Corrine Powell ; [facility] Colace 100 MG Oral Capsule 08/17/2019 - 11/15/2019 Provider: Mason hunter MD Diagnosis: 1-2 tabs daily DO NOT FILL TILL 08/17/2019 FOR SURGERY Last Documented On 9 2:50PM By Corrine Powell ; [facility] Keflex 500 MG Oral Capsule 08/17/2019 - 08/20/2019 Provider: Mason hunter MD Diagnosis: 1 every 6 hours DO NOT FIDENCIO L TILL 08/17/2019 FOR SURGERY Last Documented On 9 2:51PM By Corrine Spencer [facility] Dilaudid 2 MG Oral Tablet 08/15/2019 - 08/17/2019 Provider: Mason hunter MD Diagnosis: 1-2 po q6h prn pain (RESCUE PAIN) DO NOT FILL TILL 08/17/2019 FOR SURGERY Last Documented On 9 12:40PM By Corrine Spencer [facility] Mupirocin 2% External Ointment 08/14/2019 - 08/19/2019 Provider: Mason hunter MD Diagnosis: three times a day Apply to n ostrils 3 time a day 5 days prior to surgery. Last Documented On 9 2:11PM By Johnna Hamilton ; [facility] Medications Administered Includes: Administered Medications from this encounter No Administered Medications Recorded Vital Signs Includes: Vital Signs from this encounter Vital Name 06/17/2025 02:49P Height (in) 71 Weight (lb) 248 Body Mass Index 34.6 Body Surface Area 2.3 Pain Level 5 Last Documented: On 06/17/2025 2:49PM ; [facility] Results Includes: Results discussed during this encounter No Results Recorded For Specified Dates History of Present Illness Includes: History of Present Illness from this encounter RAMIRO Garland is a 69 year old male. - Allergy list reviewed - Problem list reviewed - Medication list reviewed - - Review of medications documented Patient is a previous spinal cord stimulator placed December 09, [address] Macias. He said for the last month now he has been noticing pain that is radiating down the left leg into the gastrocs sometimes the side of the ankle he had his spinal cord stimulator rep from [facility] interrogate the stimulator today felt like it was working okay. Pain level 5/10 this is worse when he tries to walk does get some relief sitting down. No bowel or bladder issues Social History Description Last Updated Drug use marijuana 06/17/2025 Last Documented On 5 11:41AM ; [facility] Not exercising regularly 06/17/2025 Last Documented On 5 11:41AM ; [facility] Tobacco non-user 07/01/2022 Last Documented On 5 2:48PM ; [facility] No recent change in diet 09/03/2021 Last Documented On 5 2:48PM ; [facility] Not a current smoker. 09/03/2021 Last Documented On 5 2:48PM ; [facility] Non-smoker 04/16/2021 Last Documented On 5 2:48PM ; [facility] No tobacco use 07/06/2019 Last Documented On 5 2:48PM ; [facility] Smoking status : Never smoker 07/06/2019 Last Documented On 5 2:48PM ; [facility] Alcohol use 07/06/2019 Last Documented On 5 2:48PM ; [facility] Caffeine use 07/06/2019 Last Documented On 5 2:48PM ; [facility] No recent change in diet 07/06/2019 Last Documented On 5 2:48PM ; [facility] Not a current smoker 07/06/2019 Last Documented On 5 2:48PM ; [facility] Procedures and Surgical History Includes: Procedures from this encounter Procedures Code Diagnosis Performing Provider Service Location Service Date X-RAY EXAM OF TRUNK SPINE 59535 Other intervertebral disc degeneration, lumbar region Tonio Quinonez PA-C [facility] 06/17/2025 Last Documented On 5 1:22PM ; [facility] Surgical History Last Updated History of History of Arthroscopy 2024 Last Documented On 5 11:41AM ; [facility] History of Previous Fractures 06/17/2025 Last Documented On 5 11:41AM ; [facility] History of back surgery 09/03/2021 Last Documented On 5 2:48PM ; [facility] History of heart surgery 09/03/2021 Last Documented On 5 2:48PM ; [facility] History of total knee arthroplasty 07/06 Last Documented On 5 2:48PM ; [facility] Medical History Includes: Medical History addressed during this encounter Description Last Updated History of Fractures 06/17/2025 Last Documented On 5 11:41AM ; [facility] History of diabetes mellitus A1C 5.5% 05/04/2024 Last Documented On 5 2:48PM ; [facility] History of arthritis 09/03/2021 Last Documented On 5 2:48PM ; [facility] History of Heartburn / Acid Reflux 09/03 Last Documented On 5 2:48PM ; [facility] History of Hypertension 09/03/2021 Last Documented On 5 2:48PM ; [facility] History of Sleep Apnea 09/03/2021 Last Documented On 5 2:48PM ; [facility] Use of CPAP 09/03/2021 Last Documented On 5 2:48PM ; [facility] No recent immunization for pneumococcal pneumonia 08/05/2021 Last Documented On 5 2:48PM ; [facility] Recent immunization for flu 08/05/2021 Last Documented On 5 2:48PM ; [facility] stints, gastric bypass, seizure disorder , heartburn/acid reflux 07/06/2019 Last Documented On 5 2:48PM ; [facility] Arthritic joint problems 07/06/2019 Last Documented On 5 2:48PM ; [facility] History of heart disease 07/06/2019 Last Documented On 5 2:48PM ; [facility] Intermittent hypertension 07/06/2019 Last Documented On 5 2:48PM ; [facility] Family History Includes: Family History addressed during this encounter Description Last Updated Diabetes mellitus 09/03/2021 Last Documented On 5 2:48PM ; [facility] Stroke / Seizures 09/03/2021 Last Documented On 5 2:48PM ; [facility] stroke/seizures 07/06/2019 Last Documented On 5 2:48PM ; [facility] Family history of heart disease 07/06/20 19 Last Documented On 5 2:48PM ; [facility] Family history of hypertension 9 Last Documented On 5 2:48PM ; [facility] Family history of osteoporosis 9 Last Documented On 5 2:48PM ; [facility] Review of Systems Includes: Review of Systems from this encounter Systemic: Not feeling tired, no recent weight loss, and no recent weight gain. Head: No headache and no sinus pain. Eyes: No vision problems, no Cataracts, no Glasses/Contacts, and no Glaucoma. Otolaryngeal: No hearing loss and no tinnitus. Cardiovascular: No chest pain or discomfort, no palpitations, no Hypertension, and no High Cholesterol. Pulmonary: No daytime asthma symptoms and no chronic cough. No wheezing. Gastrointestinal: No heartburn and no abdominal pain. No Indigestion, no Peptic Ulcer, no GI Stomach Bleed, no Ulcers, and no Acid Reflux. Endocrine: No hot flashes, no muscle weakness, no Diabetes, no Hypothyroid, and no Hyperthyroid. Hematologic: No easy bleeding, no tendency for easy bruising, and no Anemia. Musculoskeletal: No Arthritis and no lower back pain. No soft tissue swelling and no localized joint pain. Neurological: No dizziness, no convulsions, and no numbness. Psychological: No anxiety, no emotional lability, no depression, and no insomnia. Not crying for no reason. Skin: No dry skin. No Ulcers, no Scars, and no rash. Allergic and Immunologic: No complaint of seasonal allergic reaction. Mental Status Includes: Mental Status from this encounter Description No anxiety Functional Status Includes: Functional Status from this encounter No Functional Status Recorded Physical Exam Includes: Physical Exam from this encounter Allergies Includes: Active Allergies No Known Allergies Encounters Encounter Provider Location Date Check-In Time Check-Out Time Diagnosis Follow Up Tonio Quinonez PA-C [facility] 5 2:29PM 2:55PM Overweight Insurance Includes: Active Insurance Policies Plan Name Member ID Group # Subscriber Relationship Effect karen Dates 1 - [employer] [id number] Dani Garland [employer] Clinical Notes Includes: Clinical Notes from this encounter * Progress note Date Encounter Last Documented by 06/17/2025 Follow Up Last documented on 06/18/2025; 11:41 AM, Tonio Freeman; [facility] Active Problems & Conditions - Foot Pain Soft Tissue - Joint Pain Right Knee - Lower Back Pain - Neck Pain Chief Complaint - lower back pain Referred Here Referred by Tony Roa PCP. History of Present Illness Dani Garland is a 69 year old male. - Allergy list reviewed - Problem list reviewed - Medication list reviewed - - Review of medications documented Patient is a previous spinal cord stimulator placed December 09, [address] Macias. He said for the last month now he has been noticing pain that is radiating down the left leg into the gastrocs sometimes the side of the ankle he had his spinal cord stimulator rep from [facility] interrogate the stimulator today felt like it was working okay. Pain level 5/10 this is worse when he tries to walk does get some relief sitting down. No bowel or bladder issues Current Medication - amLODIPine Besylate 2.5 MG Oral Tablet take as directed 0 days, 0 refills - Aspirin 81 MG Oral Tablet Chewable take as directed 0 days, 0 refills - Atorvastatin Calcium 40 MG Oral Tablet 30 days, 0 refills - Carvedilol 25 MG Oral Tablet 30 days, 0 refills - Celecoxib 100 MG Oral Capsule take as directed 0 days, 0 refills - Clopidogrel Bisulfate 75 [...] Oral Tablet 30 days, 0 refills - Fluticasone Propionate 50 MCG/ACT Nasal Suspension 30 days, 0 refills - Gabapentin 100 [...] Oral Tablet 5 days, 0 refills - Metoprolol Succinate ER 25 MG Oral Tablet Extended Release 24 Hour 30 days, 0 refills - Omeprazole 40 MG Oral Capsule Delayed Release 30 days, 0 refills - Ozempic (1 MG/DOSE) 4 MG/3ML Subcutaneous Solution Pen-injector 28 days, 0 refills - Pantoprazole Sodium 40 MG Oral Tablet Delayed Release 30 days, 0 refills - Plavix 75 MG Oral Tablet as needed 0 days, 0 refills - rOPINIRole HCl 5 MG Oral Tablet as needed 0 days, 0 refills - Sure Comfort Insulin Syringe 29G X 1/2 1 ML Miscellaneous 10 days, 0 refills - traZODone HCl 100 MG Oral Tablet take as directed 0 days, 0 refills - traZODone HCl 50 MG Oral Tablet 30 days, 0 refills - Verapamil HCl ER 180 MG Oral Tablet Extended Release 30 days, 0 refills Past Medical/Surgical History Reported: History of Fractures and Use of CPAP. Medical: Arthritic joint problems. Intermittent hypertension. Immunization History: Recent immunization for flu. No recent immunization for pneumococcal pneumonia. Diagnoses: Heart disease. Sleep Apnea Heartburn / Acid Reflux Hypertension. Diabetes mellitus A1C 5.5% 07/2023. Arthritis Stints, gastric bypass, seizure disorder, heartburn/acid reflux. Surgical: - Heart surgery - Previous Fractures - Back surgery - History of Arthroscopy - Total knee arthroplasty Social History Not a current smoker. Current diet: No recent change in diet. No recent change in diet. Behavioral: Tobacco non-user. Not a current smoker. Caffeine: Caffeine use. Tobacco use: No tobacco use. Non-smoker. Smoking status: Never smoker. Alcohol: Alcohol use. Drug Use: Drug use marijuana. Habits: Not exercising regularly. Allergies - No Known Allergies Family History Heart disease Stroke / Seizures Diabetes mellitus Stroke/seizures Systemic hypertension Osteoporosis Review Of Systems Systemic: Not feeling tired, no recent weight loss, and no recent weight gain. Head: No headache and no sinus pain. Eyes: No vision problems, no Cataracts, no Glasses/Contacts, and no Glaucoma. Otolaryngeal: No hearing loss and no tinnitus. Cardiovascular: No chest pain or discomfort, no palpitations, no Hypertension, and no High Cholesterol. Pulmonary: No daytime asthma symptoms and no chronic cough. No wheezing. Gastrointestinal: No heartburn and no abdominal pain. No Indigestion, no Peptic Ulcer, no GI Stomach Bleed, no Ulcers, and no Acid Reflux. Endocrine: No hot flashes, no muscle weakness, no Diabetes, no Hypothyroid, and no Hyperthyroid. Hematologic: No easy bleeding, no tendency for easy bruising, and no Anemia. Musculoskeletal: No Arthritis and no lower back pain. No soft tissue swelling and no localized joint pain. Neurological: No dizziness, no convulsions, and no numbness. Psychological: No anxiety, no emotional lability, no depression, and no insomnia. Not crying for no reason. Skin: No dry skin. No Ulcers, no Scars, and no rash. Allergic and Immunologic: No complaint of seasonal allergic reaction. Physical Findings - Vitals taken 06/17/2025 02:49 pm Height 71 in Weight 248 lbs Body Mass Index 34.6 kg/m2 Body Surface Area 2.3 m2 Pain Level 5 Previous incisions with the back was healed battery is on the left side 4+ out of 5 EHL gastrocs quadriceps tibialis anterior strength bilaterally 1+ Achilles and patellar reflexes bilaterally negative straight leg raise bilaterally Tests Lumbar spine x-rays two views including thoracic areas show the implant in good position lead wires at T8. Does have degenerative changes with the lumbar spine at L4-L5 L5-S1 06/17/2025 Assessment - Overweight Lumbar DDD Previous Tests Available previous imaging studies were reviewed Available previous history reviewed Counseling/Education - Tobacco non-user - Use of tobacco assessment performed - Lose weight Plan StartCited - Low back pain, unspecified Radiology/MRI: MRI Lumbar Spine EndCited - Patient screened for future fall risk: [...] Tonio Quinonez PA-C. Patient will follow up Dr. Macias after a lumbar spine MRI see if he has any spinal stenosis Notes This dictation was done with voice recognition software and may contain errors and omissions. Care Team - TONY ROA MD - SCIENTIFIC EDITOR
--- OUTSIDE RECORDS SUMMARY | 2025-07-02 07:55 | XMS_ITS | Encounter Summary ---
Author Organization [facility] Address [address] [place] [address] Care Team Providers Care Framing Carpenter Name Role Phone Tony Hernandez MD Primary Care Provider [phone] Reason for Visit * Reason Onset Date Comments Prior Authorization 06/06/2025 Encounter Details Date Type Department Care Team (Late st Contact Info) Description 06/06/2025 Telephone [facility] - Ear, Nose & Throat, [place] [address] [place] [address] Shaan Day MD [address] [facility] [facility] [facility] [place] [address] Prior Authorization Social History Tobacco [...] AM EDT Hospital Encounter Periop B-Level [address] [place] [address] Shaan Day MD [address] [facility] [place] [address] 07/03/2025 11:10 AM EDT - 07/03/2025 12:25 PM EDT Surgery Periop B-Level [address] [place] [address] Shaan Day MD [address] [facility] [place] [address] Insertion of hypoglossal nerve stimulator 07/09/2025 8:30 AM EDT Appointment [facility] - Ear, Nose & Throat, [address] [place] [address] Shaan Day MD [address] [facility] [place] [address] Scheduled Procedures Name Priority Associated Diagnoses Date/Ti me IMPLANT HYPOGLOSSAL NERVE STIMULATOR SYSTEM 5 Obstructive sleep apnea 07/03/2025 11:10 AM EDT documented as of this encounter Visit Diagnoses Not on filedocumented in this encounter Care Teams Framing Carpenter Relationship Specialty Start Date End Date Tony Hernandez MD [address] [place] [address] PCP - General Internal Medicine 06/05/25 documented as of this encounter
--- OUTSIDE RECORDS SUMMARY | 2025-07-02 07:55 | XMS_ITS | Encounter Summary ---
Author Organization [facility] Address [address] [place] [address] Care Team Providers Care Chief Executive Or Managing Director Name Role Phone Tony Hernandez MD Primary Care Provider [phone] Encounter Details Date Type Department Care Team [...] AM EDT Hospital Encounter Periop B-Level [address] [place] [address] Shaan Day MD [address] [place] [address] 07/03/2025 11:10 AM EDT - 07/03/2025 12:25 PM EDT Surgery Periop B-Level [address] [place] [address] Shaan Day MD [address] [place] [address] Insertion of hypoglossal nerve stimulator 07/09/2025 8:30 AM EDT Appointment [facility] - Ear, Nose & Throat, [place] [address] [place] [address] Shaan Day MD [address] [place] [address] Scheduled Procedures Name Priority Associated Diagnoses Date/Ti me IMPLANT HYPOGLOSSAL NERVE STIMULATOR SYSTEM 5 Obstructive sleep apnea 07/03/2025 11:10 AM EDT documented as of this encounter Visit Diagnoses Not on filedocumented in this encounter Care Teams Chief Executive Or Managing Director Relationship Specialty Start Date End Date Tony Hernandez MD [address] [place] [address] PCP - General Internal Medicine 06/05/25 documented as of this encounter
--- OUTSIDE RECORDS SUMMARY | 2025-07-02 07:55 | XMS_ITS | Clinical Summary ---
Author Organization [facility] Address [address] [place] [address] Phone Care Team Providers Care Certified Coder Name Role Phone JANINA BYNUM, MACKENZIE Unavailable [phone] Samia BYNUM, Mason Carrizales Unavailable [phone] Reason for Visit and Chief Complaint Epidural Steroid Injection Problems Includes: Problems addressed during this encounter and other active Problems All Visits Onset Date Resolved Date Provider Condition S tatus Foot Pain Soft Tissue 03/13/2024 Marito Mclain DPM Active Last Documented On 4 3:19PM ; [facility], [facility] Neck Pain 10/28/2022 Alfonso Macias MD Active Last Documented On 3 8:04AM ; [facility], [facility] Lower Back Pain 08/25/2020 Alfonso Macias MD Act karen Last Documented On 0 10:34AM ; [facility], [facility] Joint Pain Right Knee 07/06/2019 Mason Gracia MD Active Last Documented On 9 1:02PM ; [facility], [facility] Plan of Treatment Future Appointments Date Time Location Provi antwan Follow Up 07/04/2025 8:30AM [facility] Alfonso Macias MD Last Documented On 5 3:02PM ; [facility], [facility] Assessments Includes: Assessments from this encounter No Assessments Recorded Medical Equipment - Implanted Devices Includes: Current Devices No Medical Equipment Recorded Medications Includes: Medications discussed during this encounter and other current Medications Current Medications (continue as prescribed) Celecoxib 100 MG Oral Capsule 06/17/2025 Provider: Diagnosis: Last Documented On 5 3:09PM By Sriram Yang ; [facility] traZODone HCl 100 MG Oral Tablet 06/17/2025 Provider : Diagnosis: Last Documented On 5 3:09PM By Sriram Yang ; [facility], [facility] Fluticasone Propionate 50 MC G/ACT Nasal Suspension 06/11/2025 Provider: Josephine denney APRN Diagnosis: Last Documented On 5 2:48PM By Sriram Yang ; [facility], [facility] Pantoprazole Sodium 40 MG Oral Tablet Delayed Release 05/02/2025 Provider: Diagnosis: Last Documented On 5 2:48PM By Sriram Yang ; [facility], [facility] Metoprolol Succinate ER 25 M G Oral Tablet Extended Release 24 Hour 04/16/2025 Provider: Diagnosis: Last Documented On 5 2:48PM By Sriram Yang ; [facility] Ozempic (1 MG/DOSE) 4 MG/3ML Subcutaneous Solution Pen-injector 01/30/2025 Provider: MACKENZIE ROA MD Diagnosis: Last Documented On 5 2:48PM By Sriram Yang ; [facility], [facility] Sure Comfort Insulin Syringe 29G X 1/2 1 ML Miscellaneous 12/14/2024 Provider: PEDRO FERGUSON MD Diagnosis: Last Documented On 5 2:48PM By Sriram Yang ; [facility], [facility] Verapamil HCl ER 180 MG Oral Tablet Extended Release 11/30/2024 Provider: MACKENZIE ROA MD Diagnosis: Last Documented On 5 2:56PM By Sriram Yang ; [facility], [facility] Farxiga 10 MG Oral Tablet 11/15/2024 Provider: ST JOSE ROA MD Diagnosis: Last Documented On 5 2:56PM By Sriram Yang ; [facility], [facility] dexAMETHasone Sodium Phospha te 4 MG/ML Injection [...] On 4 4:15PM By Hollie Bocanegra ; [facility] Losartan Potassium 25 MG Oral Tablet 03/05/2024 Prov ider: MACKENZIE ROA MD Diagnosis: Last Documented On 4 3:20PM By Mona Ken ; [facility] Dapagliflozin Propanediol 10 MG Oral Tablet 03/05/2024 Provider: MACKENZIE ROA MD Diagnosis: Last Documented On 4 3:20PM By Mona Ken ; [facility] Clopidogrel Bisulfate 75 MG Oral Tablet 03/05/2024 P tannerder: MACKENZIE ROA MD Diagnosis: Last Documented On 4 3:20PM By Mona Ken ; [facility] Methocarbamol 500 MG Oral Tablet 06/21/2022 Provider : MACKENZIE ROA MD Diagnosis: Last Documented On 2 1:44PM By Huma Sears ; [facility] Plavix 75 MG Oral Tablet 01/21/2022 Provider: Diagnosis: Last Documented On 2 8:50AM By Deisy Jaramillo ; [facility] rOPINIRole HCl 5 MG Oral Tablet 01/21/2022 Provider: Diagnosis: Last Documented On 2 8:50AM By Deisy Jaramillo ; [facility] Aspirin 81 MG Oral Tablet Chewable 09/03/2021 Provid er: Diagnosis: Last Documented On 1 10:54AM By Keri Zhao ; [facility] Divalproex Sodium 500 MG Oral Tablet Delayed Release 1 11/04/2020 Provider: Diagnosis: Last Documented On 1 10:55AM By Keri Zhao ; [facility] Magnesium Oxide 500 MG Oral Tablet 07/06/2019 Pr ovider: Diagnosis: Last Documented On 9 1:05PM By Jen Ramirez ; [facility] amLODIPine Besylate 2.5 MG Oral Tablet 07/06/2019 Pr ovider: Diagnosis: Last Documented On 9 1:04PM By Jen Ramirez ; [facility] Atorvastatin Calcium 40 MG Oral Tablet 07/04/2019 Pr ovider: MACKENZIE ROA MD Diagnosis: Last Documented On 9 1:03PM By Jen Ramirez ; [facility] metFORMIN HCl 1000 MG Oral Tablet 07/04/2019 Provide r: MACKENZIE ROA MD Diagnosis: Last Documented On 9 1:03PM By Jen Ramirez ; [facility], [facility] traZODone HCl 50 MG Oral Tablet 07/04/2019 Provider: MACKENZIE ROA MD Diagnosis: Last Documented On 9 1:05PM By Jen Ramirez ; [facility] Omeprazole 40 MG Oral Capsule Delayed Release 06/04/20 Provider: MACKENZIE ROA MD Diagnosis: Last Documented On 9 1:05PM By Jen Ramirez ; [facility] Carvedilol 25 MG Oral Tablet 01/06/2019 Provider: Diagnosis: Last Documented On 9 1:04PM By Jen Ramirez ; [facility] Colestipol HCl 1 GM Oral Tablet 01/06/2019 Provider: DANI ASKEW MD () Diagnosis: Last Documented On 9 1:03PM By Jen Ramirez ; [facility] hydroCHLOROthiazide 25 MG Oral Tablet 01/06/2019 Pro vider: Diagnosis: Last Documented On 9 1:03PM By Jen Ramirez ; [facility] Gabapentin 100 MG Oral Capsule 12/07/2018 Provider: MACKENZIE ROA MD Diagnosis: Last Documented On 9 1:03PM By Jen Ramirez ; [facility], [facility] Medications Administered Includes: Administered Medications from this encounter No Administered Medications Recorded Results Includes: Results discussed during this encounter No Results Recorded For Specified Dates History of Present Illness Includes: History of Present Illness from this encounter No History of Present Illness Recorded Social History No Social History Recorded - Smoking Status Unknown Medical History Includes: Medical History addressed during [...] Diagnosis Epidural Steroid Injection Allan Melton CRNA 12/26/2024 3:44PM 11:59PM Insurance Includes: Active Insurance Policies Plan Name Member ID Group # Subscriber Relationship Effect karen Dates 1 - [employer] [id number] Dani Garland [employer] Se lf Clinical Notes Includes: Clinical Notes from this encounter No Clinical Notes Recorded
--- OUTSIDE RECORDS SUMMARY | 2025-07-02 07:55 | XMS_ITS | Data Portability ---
Author Organization [facility]LEGARIO Man [facility] CLOSED Address [address] [place] [address] Assessment No assessment recorded. Plan of Treatment Reminders Order Date Submit Date Provider Last Modified By Organization Details Last Modified Time Details Appointments None recorded. Lab urinalysis panel, auto 2022 023 [email or web address] [facility], [address], [place], [address], 16:54:03 Referral None recorded. Procedures None recorded. Surgeries None recorded. Imaging None recorded. Medication Orders Trimix (papaverine --phentalom -alprost 30mg-1mg-10 mcg/ml intracavern osal soln) 2022 023 [facility], [address], [place], [place], [phone], 17:00:33 Patient TargetsNo targets recorded. Patient InstructionsNo instructions recorded. Reason for Referral None Reported. Results Created Date Observation Date Name Description Value Unit Range Abnormal Flag Note LastModifiedBy Organization Detail LastModifiedTime 10/22/1910/22/2022 urina lysis panel , auto Unknown Analyte Clean Catch Not Available [facility] [address], [place], [address], 10/22/2022 16:03:24 10/22/1925 1010/22/2022 urina lysis panel , auto Unknown Analyte Yellow Not Available [facility] [address], [place], [address], 10/22/2022 16:03:24 10/22/19 23 10/22/2022 urina lysis panel , auto Unknown Analyte Clear Not Available [facility] [address], [place], [address], 10/22/2022 16:03:24 10/22/19 23 10/22/2022 urina lysis panel , auto Unknown Analyte 1.010 Not Available [facility] [address], [place], [address], 10/22/2022 16:03:24 10/22/19 23 10/22/2022 urina lysis panel , auto Unknown Analyte 7.0 Not Available [facility] [address], [place], [address], 10/22/2022 16:03:24 10/22/19 23 10/22/2022 urina lysis panel , auto Unknown Analyte Negati ve Not Available [facility] [address], [place], [address], 10/22/2022 16:03:24 10/22/19 23 10/22/2022 urina lysis panel , auto Unknown Analyte Negati ve Not Available [facility] [address], [place], [address], 10/22/2022 16:03:24 10/22/19 23 10/22/2022 urina lysis panel , auto Unknown Analyte Negati ve Not Available [facility] [address], [place], [address], 10/22/2022 16:03:24 10/22/19 23 10/22/2022 urina lysis panel , auto Unknown Analyte >1000 mg/dl Not Available [facility] [address], [place], [address], 10/22/2022 16:03:24 10/22/19 23 10/22/2022 urina lysis panel , auto Unknown Analyte 15 mg/dl (Sm) Not Available [facility] [address], [place], [address], 10/22/2022 16:03:24 10/22/19 23 10/22/2022 urina lysis panel , auto Unknown Analyte Normal Not Available [facility] [address], [place], [address], 10/22/2022 16:03:24 10/22/19 23 10/22/2022 urina lysis panel , auto Unknown Analyte Negati ve Not Available [facility] [address], [place], [address], 10/22/2022 16:03:24 10/22/19 23 10/22/2022 urina lysis panel , auto Unknown Analyte Negati ve Not Available [facility] [address], [place], [address], 10/22/2022 16:03:24 Result Notes None recorded. Problems No Known Problems Medical Equipment None Reported. Allergies No known drug allergies Medications Name Sig Start Date Stop Date Status Note LastModified by Organization Details LastModified Time Trimix (papaverine-- phentalom-alp liban 77ys-7kt-51sm g/ml intracavernos al soln) Inject 0.1 mL as directed as necessary 2023 active Not Available Not Available Not Avai lable Trimix (papaverine-- phentalom-alp liban 36bk-4su-17ys g/ml intracavernos al soln) Inject 0.1 mL as directed as necessary 2022 active Not Available Not Available Not Avai lable atorvastatin 40 mg tablet Take 1 tablet every day by oral route. active Not Available Not Available No t Available carvedilol 25 mg tablet Take 1 tablet twice a day by oral route. active Not Available Not Available No t Available divalproex 500 mg tablet,delaye d release Take 1 tablet twice a day by oral route. active Not Available Not Available No t Available trazodone 150 mg tablet Take 1 tablet twice a day by oral route. active Not Available Not Available No t Available hydrochloroth iazide 25 mg tablet Take 1 tablet every day by oral route. active Not Available Not Available No t Available celecoxib 100 mg capsule Take 1 capsule every day by oral route. active Not Available Not Available No t Available colestipol 1 gram tablet Take 2 tablets twice a day by oral route. active Not Available Not Available No t Available ropinirole 4 mg tablet Take 1 tablet 3 times a day by oral route. active Not Available Not Available No t Available omeprazole active Not Available Not Av ailable Not Available verapamil active Not Available Not Aylin ilable Not Available gabapentin active Not Available Not Av ailable Not Available Asprin Ec Low Dose active Not Available Not Available Not Available Cialis active Not Available Not Availa ble Not Available Jardiance 25 mg tablet Take 1 tablet every day by oral route. active Not Available Not Available No t Available Mounjaro active Not Available Not Avai lable Not Available Vitals Date Recorded Body weight Provider Name an d Address Organization Details Last Updated DateTime 10/22/2022 456291.24 g Bl[facility] 15:58:44 Social History None recorded. Functional Status None recorded. Mental Status None recorded. Family History Nothing Reported. Medical History No medical history recorded. Past Encounters Encounter ID Performer Location Encounter Start Date Encounter Closed Date Diagnosis/Indication Diagnosis SNOMED-CT Code Diagnosis ICD10 Code Diagnosis IMO Codes Diagnosis Note [id number] PEDRO FERGUSON MD [facility] [address] [place] [address] 10/22/2022 15:28:42 11/02/2022 10:15:55 Primary erectile dysfunction 748415465 N52.9 He will follow up in 6 weeks Health Concerns Section Related Observation LastModified by Organization Detai ls LastModified Time None Recorded Concern Status LastModified by Organization Details LastModified Time None Recorded Advance Directives Directive None Recorded Payers Insurance Date Sequence Insurance Name Policy Number Policy Wei Covered Member ID Wei Member ID Guarantor Name 11/23/2022 1 [place] [id number] 3 Dani Garland [id number] Dani Garland Notes Date Note Type Note Provider Name and Address Organization Details Recorded Time 10/22/2022 text/html Patient is here for initial visit regarding erectile dysfunction. He's had diabetes mellitus. He previously had developed a and sildenafil without significant results. He has difficulty achieving and maintaining an erection. We discussed injection therapy in detail. We discussed risks of priapism. We discussed injection technique and titration of dosage. After long discussion he would like to try injection therapy. PEDRO FERGUSON MD [address] [place] [address], [address], [facility] 10/24/2022 22:08:55
--- OUTSIDE RECORDS SUMMARY | 2025-07-02 07:56 | XMS_ITS | Clinical Summary ---
Author Organization [facility] Address [address] [place] [id number] Care Team Providers Care Lightning Rod Erector Name Role Phone Tony Hernandez MD Primary Care Provider [phone] Allergies Active Allergy Reactions Criticality Noted Date [...] mg by mouth in the morning. 05/02/20 25 Active rOPINIRole (REQUIP) 4 mg TabletIndicati ons:restless leg syndrome Take 4 mg by mouth nightly. Indications: restless legs syndrome, an extreme discomfort in the calf muscles when sitting or lying down 04/18/20 25 Active Ozempic 1 mg/dose (4 mg/3 mL) Pen InjectorIndica tions:type 2 diabetes mellitus,weigh t loss management for obese patient (bmi >= 30) 1 mg by Subcutaneous route every Tuesday. Indications: type 2 diabetes mellitus, weight loss management for a person with obesity 05/02/20 25 Active traZODone (DESYREL) 300 mg tabletIndicati ons:sleep Take 300 mg by mouth nightly at bedtime. Indications: sleep 05/03/20 25 Active verapamiL (VERELAN) 180 mg CR capsuleIndicat ions:hypertens ion Take 180 mg by mouth daily. Indications: high blood pressure 03/12/20 25 Active magnesium oxide (MAG-OX) 400 mg (241.3 mg magnesium) tabletIndicati ons:hypomagnes emia Take 400 mg by mouth daily. Indications: low amount of magnesium in the blood Active omeprazole (PriLOSEC) 40 mg Capsule, Delayed Release(E.C.) Take 40 mg by mouth in the morning. Active fluticasone propionate (FLONASE) 50 mcg/actuation nasal spray [place] 1 [place] into nose in the morning. 06/11/20 25 Active tadalafiL (Cialis) 5 mg Tablet Take 5 mg by mouth every morning. 05/30/20 25 Active aspirin 325 mg Tablet, Delayed Release (E.C.) Take 325 mg by mouth in the morning. Active Sure Comfort Insulin Syringe 1 mL 29 gauge x 1/2 Syringe USE DIRECTED 12/15/19 25 025 Discontinued Active Problems Problem Noted Date Diagnosed Date Obstructive sleep apnea 05/14/2025 Encounters Date Type Department Care Team Description 06/26/2025 12:15 PM EDT - 06/26/2025 11:59 PM EDT Hospital Encounter PRE SURGICAL TESTING [phone] Discharge Disposition: Home or Self Care 06/18/2025 9:20 AM EDT Office Visit [facility] - Ear, Nose & Throat, [facility] [address] [place] [address] Shaan Day MD Obstructive sleep apnea (Primary Dx); BMI 33.0-33.9,adult; History of anticoagulant use 06/18/2025 Preop Surgical Orders [facility] Ear, Nose & Throat, [place] [address] [facility] [address] [place] [address] Shaan Day MD Obstructive sleep apnea (Primary Dx) 06/17/2025 Telephone [facility] [address] [place] [address] [address] [place] [address] Shaan Day MD Prior Authorization 06/06/2025 Telephone [facility] [address] [place] [address] [address] [place] [address] Shaan Day MD Prior Authorization 06/05/2025 12:50 PM EDT - 06/05/2025 1:20 PM EDT Surgery Periop B-Level [address] [place] [address] Shaan Day MD Drug-induced sleep endoscopy 06/05/2025 12:47 PM EDT Anesthesia Event Periop B-Level [address] [place] [address] Hamilton Sena MD [place], Joshua P., [facility] 06/05/2025 10:50 AM EDT - 06/05/2025 1:58 PM EDT Hospital Encounter [facility] [address] [place] [address] Shaan Day MD Obstructive sleep apnea Discharge Disposition: Home or Self Care 06/05/2025 Travel 05/31/2025 Telephone [facility] Ear, Nose & [facility]at [place] [address] Medical Office [address] [place] [address] Meghna Solis RN Follow-up (On needed information for upcoming procedure) 05/29/2025 10:00 AM EDT - 05/29/2025 11:59 PM EDT Hospital Encounter PRE SURGICAL TESTING [phone] Discharge Disposition: Home or Self Care 05/29/2025 Telephone [facility] Ear, Nose & Throat, [address] [place] [phone] Meghna Solis RN Other (History and Physical schedule and how to get it to [facility]) 05/29/2025 Telephone [facility], Nose & Throat[address] [place] [address] Shaan Day MD Questions 05/14/2025 1:30 PM EDT Office Visit [facility], Nose & [address] [place] [address] Shaan Day MD MAYDA (obstructive sleep apnea) (Primary Dx); BMI 33.0-33.9,adult 05/14/2025 Preop Surgical Orders [facility], Nose & [address] [place] [address] Shaan Day MD Obstructive sleep apnea (Primary Dx) 05/08/2025 Telephone [facility], Nose & [facility], [address] [place] [phone] Meghna Solis RN Scheduling from Last 3 Months Family History Medical History Relation Name Comments Heart Problems Father ID Stroke Father Heart Problems Maternal Uncle High [...] AM EDT Hospital Encounter Periop B-Level [address] [place] [address] Shaan Day MD [address] [place] [address] 07/03/2025 11:10 AM EDT - 07/03/2025 12:25 PM EDT Surgery Periop B-Level [address] [place] [address] Shaan Day MD [address] [place] [address] Insertion of hypoglossal nerve stimulator 07/09/2025 8:30 AM EDT Appointment [facility] - Ear, Nose & Throat, [address] [place] [address] Shaan Day MD [address] [place] [address] Scheduled Procedures Name Priority Associated Diagnoses Date/Ti [...] 03/25/2033 03/25/2023, 02/07/2023 Zoster-RZV(Shingrix) Completed 03/25/2023, 08/02/20 Medical Devices Implanted Type Area Guide Dog Mobility Instructor Device Identifier Shelf Expiration Date Model / Serial / Lot Spinal Cord Stimulator Implant Back Nerve stimulator Spinal Cord Stimulator Spine Lumbar Procedures Procedure Name Priority Date/Time Associated Diagnosis Comments POC GLU MONITORING DEVICE Routine 06/05/2025 1:15 PM EDT DE DISE DYN EVAL SLEEP DISORDERED BREATHING FLX DX 06/05/2025 12:44 PM EDT Obstructive sleep apnea POC GLU MONITORING DEVICE Routine 06/05/2025 11:26 AM EDT from Last 3 Months Results * POC GLU MONITORING DEVICE (06/05/2025 1:15 PM EDT) Only the most recent of2 resultswithin the time period is included. [facility] POC Glucose Monitoring Device 80 71 - 99 mg/dL [facility] Blood 06/05/2025 1:15 PM EDT 06/05/2025 1:16 PM EDT us Shaan Day MD POINT OF CARE TEST ORDERAB LES Final Result [facility] [address] [place] [address], [facility] from Last 3 Months Insurance MEDICARE Care Teams Lightning Rod Erector Relationship Specialty Start Date End Date Tony Hernandez MD [address] [place] [id number] PCP - General Internal Medicine 06/05/25
--- OUTSIDE RECORDS SUMMARY | 2025-07-02 07:56 | XMS_ITS | Encounter Summary ---
Author Organization [facility] Address [address] [place] [address] Care Team Providers Care Biztalk Administrator Name Role Phone Unavailable Primary Care Provider Unavailabl e Reason for Visit * Reason Onset Date Comments Questions 05/29/2025 Encounter Details Date Type Department Care Team (Late st Contact Info) Description 05/29/2025 Telephone [facility] - Ear, Nose & Throat, [place] 1952 [facility] [address] [place] [address] Shaan Day MD [address] [place] [address] Questions Social History Tobacco Use [...] Spoke with pt. He is seeing his historical archeologist, Dr. Shaan Powers today. His last EKG was in April 2025. He has a cardiac clearance letter. Dr. Powers has advised stopping his Plavix 5 days before surgery. documented in this encounter Plan of Treatment Upcoming Encounters Date Type Department Care Team (Latest Contact Info) Description 07/03/2025 11:10 AM EDT Hospital Encounter Periop B-Level [address] [place] [address] Shaan Day MD [address] [place] [address] 07/03/2025 11:10 AM EDT - 07/03/2025 12:25 PM EDT Surgery Periop B-Level [address] [place] [address] Shaan Day MD [address] [facility] [place] [address] Insertion of hypoglossal nerve stimulator 07/09/2025 8:30 AM EDT Appointment [facility] - Ear, Nose & Throat, [place] [address] [facility] [address] [place] [address] Shaan Day MD [address] [facility] [place] [address] Scheduled Procedures Name Priority Associated Diagnoses Date/Ti me IMPLANT HYPOGLOSSAL NERVE STIMULATOR SYSTEM 5 Obstructive sleep apnea 07/03/2025 11:10 AM EDT documented as of this encounter Visit Diagnoses Not on filedocumented in this encounter
--- OUTSIDE RECORDS SUMMARY | 2025-07-02 07:56 | XMS_ITS | Encounter Summary ---
Author Organization [facility] Address [address] [place] [address] Care Team Providers Care Risk Consulting Treasury Director Name Role Phone Unavailable Primary Care Provider Unavailabl e Encounter Details Date Type Department Care Team (Latest Contact Info) Description 05/14/2025 Preop Surgical Orders [facility] - Ear, Nose & Throat, [place] 1952 [facility] [address] [place] [address] Shaan Day MD [address] [place] [address] Obstructive sleep apnea (Primary Dx) [...] AM EDT Hospital Encounter Periop B-Level [address] [place], [place] [address] Shaan Day MD [address] [place] [address] 07/03/2025 11:10 AM EDT - 07/03/2025 12:25 PM EDT Surgery Periop B-Level [address] [place] [address] Shaan Day MD [address] [facility] [place] [address] Insertion of hypoglossal nerve stimulator 07/09/2025 8:30 AM EDT Appointment [facility] - Ear, Nose & Throat, [place] [address] [facility] [address] [place] [address] Shaan Day MD [address] [facility] [address] [place] [address] Scheduled Procedures Name Priority Associated Diagnoses Date/Ti me IMPLANT HYPOGLOSSAL NERVE STIMULATOR SYSTEM 5 Obstructive sleep apnea 07/03/2025 11:10 AM EDT documented as of this encounter Visit Diagnoses Diagnosis Obstructive sleep apnea- Primary Obstructive sleep apnea (adult) (pediatric) Obstructive sleep apnea Obstructive sleep apnea (adult) (pediatric) documented in this encounter
--- OUTSIDE RECORDS SUMMARY | 2025-07-02 07:56 | XMS_ITS ---
Author Organization [facility] Address [address] [place] [address] Phone Care Team Providers Care Grazing Examiner Name Role Phone JANINA BYNUM, TONY Unavailable [phone] Samia BYNUM, Mason Carrizales Unavailable [phone] Reason for Referral Date Encounter Description Provider Reason for Referral 09/03/21 Follow Up Alfonso Macias MD Referral To Physician - to see pcp for bp 08/05/21 Post Op Tonio Quinonez PA-C Referral To Physician - to see pcp for bp 04/16/21 Follow Up Alfonso Macias MD Referral To Physician - see pcp for bp 01/29/21 facet Alfonso Macias MD Referral To Physician - see pcp for bp 01/22/21 Follow Up Alfonso Macias MD Referral To Physician - see pcp for bp 12/04/20 Follow Up Alfonso Macias MD Referral To Physician - see pcp for bp 11/19/20 Follow Up Alfonso Macias MD Referral To Physician - see pcp for bp 10/07/20 Follow Up Alfonso Macias MD Referral To Physician - see pcp for bp 08/25/20 Physician Specified Alfonso Macias MD Refe rral To Physician - see pcp for bp Problems Includes: Active, inactive, and resolved Problems All Visits Onset Date Resolved Date Provider Condition S tatus Foot Pain Soft Tissue 03/13/2024 Marito Mclain DPM Active Last Documented On 4 3:19PM ; [facility] Neck Pain 10/28/2022 Alfonso Macias MD Active Last Documented On 3 8:04AM ; [facility] Lower Back Pain 08/25/2020 Alfonso Macias MD Act karen Last Documented On 0 10:34AM ; [facility] Joint Pain Right Knee 07/06/2019 Mason Gracia MD Active Last Documented On 9 1:02PM ; [facility] Plan of Treatment Findings Encounter Date Patient screened for future fall risk: documentation of any fall with injury in past year Follow Up with Tonio Quinonez PA-C 06/17/2025 Last Documented On 5 11:41AM ; [facility] Patient screened for future fall risk: documentation of any fall with injury in past year Follow Up with Tonio Quinonez PA-C 12/05/2024 Last Documented On 5 12:58PM ; [facility] Patient screened for future fall risk: documentation of any fall with injury in past year Follow Up with Tonio Quinonez PA-C 10/16/2024 Last Documented On 5 11:40AM ; [facility] Patient screened for future fall risk: documentation of any fall with injury in past year Follow Up with Marito Mclain DPM 05/04/2024 Last Documented On 4 10:52AM ; [facility] Patient screened for future fall risk: documentation of any fall with injury in past year Follow Up with Marito Mclain DPM 04/24/2024 Last Documented On 4 2:45PM ; [facility] Patient screened for future fall risk: documentation of any fall with injury in past year Physician Specified with Marito Mclain DPM 03/13/2024 Last Documented On 4 4:08PM ; [facility] Pending Tests Order Diagnosis Results Due Ordering P rovider Radiology - MRI MRI Lumbar Spine 05/25/22 Irineo Quinonez PA-C Last Documented On 2 7:57AM ; [facility] Radiology - MRI MRI Cervical Spine Cervicalgia 10/30/24 Tonio Quinonez PA-C Last Documented On 5 11:40AM ; [facility] Radiology - MRI MRI Lumbar Spine Low back pain, unspecified 07/01/25 Tonio Quinonez PA-C Last Documented On 5 3:11PM ; [facility] Future Appointments Date Time Location [facility] Up 07/04/2025 8:30AM [facility] GAURAV Macias MD Last Documented On 5 3:02PM ; [facility] Instructions to patient Lose weight Last Documented On 5 2:48PM ; [facility] Lose weight Last Documented On 5 2:56PM ; [facility] Lose weight Last Documented On 5 4:01PM ; [facility] Lose weight Last Documented On 4 10:14AM ; [facility] Lose weight Last Documented On 4 2:13PM ; [facility] Lose weight Last Documented On 4 3:24PM ; [facility] Lose weight Last Documented On 3 2:14PM ; [facility] Lose weight Last Documented On 3 8:04AM ; [facility] Lose weight Last Documented On 2 1:21PM ; [facility] Lose weight Last Documented On 2 9:11AM ; [facility] Lose weight Last Documented On 2 1:26PM ; [facility] Lose weight Last Documented On 2 3:24PM ; [facility] Lose weight Last Documented On 2 10:26AM ; [facility] Lose weight Last Documented On 2 2:18PM ; [facility] Lose weight Last Documented On 1 10:26AM ; [facility] Lose weight Last Documented On 1 3:13PM ; [facility] Lose weight Last Documented On 1 11:07AM ; [facility] Lose weight Last Documented On 1 2:56PM ; [facility] Instructions for patient to see pcp for bp Last Documented On 1 7:57AM ; [facility] Lose weight Last Documented On 1 7:57AM ; [facility] Instructions for patient to see pcp for bp Last Documented On 1 1:34PM ; [facility] Lose weight Last Documented On 1 1:34PM ; [facility] Instructions for patient to see pcp for bp Last Documented On 1 3:18PM ; [facility] Lose weight Last Documented On 1 3:20PM ; [facility] Instructions for patient to see pcp for bp Last Documented On 0 10:34AM ; [facility] Instructions for patient to see pcp for bp Last Documented On 0 3:36PM ; [facility] Instructions for patient to see pcp for bp Last Documented On 9 8:22AM ; [facility] Instructions for patient to see pcp for bp Last Documented On 9 2:52PM ; [facility] Assessments Includes: Assessments for all patient encounters Findings Encounter Date Overweight Follow Up with Tonio Freeman 06/17/2025 Last Documented On 5 11:41AM ; [facility] Overweight Follow Up with Tonio Freeman 12/05/2024 Last Documented On 5 12:58PM ; [facility] Overweight Follow Up with Tonio Freeman 10/16/2024 Last Documented On 5 11:40AM ; [facility] Overweight Follow Up with Marito BERNAL M 05/04/2024 Last Documented On 4 10:52AM ; [facility] Overweight Follow Up with Marito Mclain DP M 04/24/2024 Last Documented On 4 2:45PM ; [facility] Overweight Physician Specified with Marito Mclain DPM 03/13/2024 Last Documented On 4 4:08PM ; [facility] Instructions Includes: Instructions for all patient encounters Instructions to patient Lose weight Last Documented On 5 2:48PM ; [facility] Lose weight Last Documented On 5 2:56PM ; [facility] Lose weight Last Documented On 5 4:01PM ; [facility] Lose weight Last Documented On 4 10:14AM ; [facility] Lose weight Last Documented On 4 2:13PM ; [facility] Lose weight Last Documented On 4 3:24PM ; [facility] Lose weight Last Documented On 3 2:14PM ; [facility] Lose weight Last Documented On 3 8:04AM ; [facility] Lose weight Last Documented On 2 1:21PM ; [facility] Lose weight Last Documented On 2 9:11AM ; [facility] Lose weight Last Documented On 2 1:26PM ; [facility] Lose weight Last Documented On 2 3:24PM ; [facility] Lose weight Last Documented On 2 10:26AM ; [facility] Lose weight Last Documented On 2 2:18PM ; [facility] Lose weight Last Documented On 1 10:26AM ; [facility] Lose weight Last Documented On 1 3:13PM ; [facility] Lose weight Last Documented On 1 11:07AM ; [facility] Lose weight Last Documented On 1 2:56PM ; [facility] Instructions for patient to see pcp for bp Last Documented On 1 7:57AM ; [facility] Lose weight Last Documented On 1 7:57AM ; [facility] Instructions for patient to see pcp for bp Last Documented On 1 1:34PM ; [facility] Lose weight Last Documented On 1 1:34PM ; [facility] Instructions for patient to see pcp for bp Last Documented On 1 3:18PM ; [facility] Lose weight Last Documented On 1 3:20PM ; [facility] Instructions for patient to see pcp for bp Last Documented On 0 10:34AM ; [facility] Instructions for patient to see pcp for bp Last Documented On 0 3:36PM ; [facility] Instructions for patient to see pcp for bp Last Documented On 9 8:22AM ; [facility] Instructions for patient to see pcp for bp Last Documented On 9 2:52PM ; [facility] Medical Equipment - Implanted Devices Includes: Current and historical Devices No Medical Equipment Recorded Medications Includes: Current and historical Medications Current Medications (continue as prescribed) Celecoxib 100 MG Oral Capsule 06/17/2025 Provider: Diagnosis: Last Documented On 5 3:09PM By Sriram Yang ; [facility] traZODone HCl 100 MG Oral Tablet 06/17/2025 Provider : Diagnosis: Last Documented On 5 3:09PM By Sriram Yang ; [facility] Fluticasone Propionate 50 MC G/ACT Nasal Suspension 06/11/2025 Provider: Josephine denney APRN Diagnosis: Last Documented On 5 2:48PM By Sriram Yang ; [facility] Pantoprazole Sodium 40 MG Oral Tablet Delayed Release 05/02/2025 Provider: Diagnosis: Last Documented On 5 2:48PM By Sriram Yang ; [facility] Metoprolol Succinate ER 25 M G Oral Tablet Extended Release 24 Hour 04/16/2025 Provider: Diagnosis: Last Documented On 5 2:48PM By Sriram Yang ; [facility] Ozempic (1 MG/DOSE) 4 MG/3ML Subcutaneous Solution Pen-injector 01/30/2025 Provider: TONY ROA MD Diagnosis: Last Documented On 5 2:48PM By Sriram Yang ; [facility] Sure Comfort Insulin Syringe 29G X 1/2 1 ML Miscellaneous 12/14/2024 Provider: PEDRO FERGUSON MD Diagnosis: Last Documented On 5 2:48PM By Sriram Yang ; [facility] Verapamil HCl ER 180 MG Oral Tablet Extended Release 11/30/2024 Provider: TONY ROA MD Diagnosis: Last Documented On 5 2:56PM By Sriram Yang ; [facility] Farxiga 10 MG Oral Tablet 11/15/2024 Provider: ST JOSE ROA MD Diagnosis: Last Documented On 5 2:56PM By Sriram Yang ; [facility] dexAMETHasone Sodium Phospha te 4 MG/ML Injection Solution 03/13/2024 Provider: Marito Mclain DPM Diagnosis: use as directed 1-2 mL per v isit; for topical use with iontophoresis in physical therapy Last Documented On 4 4:15PM By Hollie Bocanegra ; [facility] Meloxicam 15 MG Oral Tablet 03/13/2024 Provider: Marito Mclain DPRobert Diagnosis: once a day with food Last Documented On 4 4:15PM By Hollie Bocanegra ; [facility] Losartan Potassium 25 MG Oral Tablet 03/05/2024 Prov ider: TONY ROA MD Diagnosis: Last Documented On 4 3:20PM By Mona Ken ; [facility] Dapagliflozin Propanediol 10 MG Oral Tablet 03/05/2024 Provider: TONY ROA MD Diagnosis: Last Documented On 4 3:20PM By Mona Ken ; [facility] Clopidogrel Bisulfate 75 MG Oral Tablet 03/05/2024 P tannerder: TONY ROA MD Diagnosis: Last Documented On 4 3:20PM By oMna Ken ; [facility] Methocarbamol 500 MG Oral Tablet 06/21/2022 Provider : TONY ROA MD Diagnosis: Last Documented On 2 1:44PM By Huma Sears ; [facility] Plavix 75 MG Oral Tablet 01/21/2022 Provider: Diagnosis: Last Documented On 2 8:50AM By Deisy Jaramillo ; [facility] rOPINIRole HCl 5 MG Oral Tablet 01/21/2022 Provider: Diagnosis: Last Documented On 2 8:50AM By Deisy Jaramillo ; [facility] Aspirin 81 MG Oral Tablet Chewable 09/03/2021 Provid er: Diagnosis: Last Documented On 1 10:54AM By Keri Zhao ; [facility] Divalproex Sodium 500 MG Oral Tablet Delayed Release 1 11/04/2020 Provider: Diagnosis: Last Documented On 1 10:55AM By Keri Zhao ; [facility] Magnesium Oxide 500 MG Oral Tablet 07/06/2019 Pr ovider: Diagnosis: Last Documented On 9 1:05PM By Jen Ramirez ; [facility] amLODIPine Besylate 2.5 MG Oral Tablet 07/06/2019 Pr ovider: Diagnosis: Last Documented On 9 1:04PM By Jen Ramirez ; [facility] Atorvastatin Calcium 40 MG Oral Tablet 07/04/2019 Pr ovider: TONY ROA MD Diagnosis: Last Documented On 9 1:03PM By Jen Ramirez ; [facility] metFORMIN HCl 1000 MG Oral Tablet 07/04/2019 Provide r: TONY ROA MD Diagnosis: Last Documented On 9 1:03PM By Jen Ramirez ; [facility] traZODone HCl 50 MG Oral Tablet 07/04/2019 Provider: TONY ROA MD Diagnosis: Last Documented On 9 1:05PM By Jen Ramirez ; [facility] Omeprazole 40 MG Oral Capsule Delayed Release 06/04/20 Provider: TONY ROA MD Diagnosis: Last Documented On 9 1:05PM By Jen Ramirez ; [facility] Carvedilol 25 MG Oral Tablet 01/06/2019 Provider: Diagnosis: Last Documented On 9 1:04PM By Jen Ramirez ; [facility] Colestipol HCl 1 GM Oral Tablet 01/06/2019 Provider: DANI ASKEW MD () Diagnosis: Last Documented On 9 1:03PM By Jen Ramirez ; [facility] hydroCHLOROthiazide 25 MG Oral Tablet 01/06/2019 Pro vider: Diagnosis: Last Documented On 9 1:03PM By Jen Ramirez ; [facility] Gabapentin 100 MG Oral Capsule 12/07/2018 Provider: TONY ROA MD Diagnosis: Last Documented On 9 1:03PM By Jen Ramirez ; [facility] Past Medications on file Colestipol HCl 1 GM Oral Tablet 03/05/2024 - 4 Provider: TONY ROA MD Diagnosis: Last Documented On 4 2:14PM By Mona Ken ; [facility] Naproxen 500 MG Oral Tablet 07/01/2022 - 08/30/2022 Pr ovider: Alfonso Macias MD Diagnosis: twice a day Last Documented On 2 2:16PM By Keri Zhao ; [facility] Percocet 5-325 MG Oral Tablet 12/07/2021 - 12/22/2021 Provider: Alfonso Macias MD Diagnosis: 1 po q 4h prn pain Last Documented On 2 9:38AM By Alfonso Macias ; [facility] Percocet 5-325 MG Oral Tablet 07/20/2021 - 08/04/2021 Provider: Alfonso Macias MD Diagnosis: 1 po q 4h prn pain Last Documented On 1 11:52AM By Alfonso Macias ; [facility] Tylenol 325 MG Oral Capsule 10/09/2019 - 09/03/2021 Pr ovider: Diagnosis: Last Documented On 1 10:54AM By Keri Zhao ; [facility] Mobic 15 MG Oral Tablet 08/17/2019 - 09/16/2019 Provid er: Mason Gracia MD Diagnosis: once a day DO NOT FILL TIL L 08/17/2019 FOR SURGERY Last Documented On 9 2:51PM By Corrine Powell ; [facility] traMADol HCl 50 MG Oral Tablet 08/17/2019 - 08/22/2019 Provider: Mason hunter MD Diagnosis: 1-2 po q6h prn pain DO NOT FILL TILL 08/17/2019 FOR SURGERY Last Documented On 9 2:51PM By Corrine Powell ; [facility] Zofran 4 MG Oral Tablet 08/17/2019 - 08/22/2019 Provid er: Mason Gracia MD Diagnosis: [id number] DO NOT FILL TILL 08/17/2019 FOR SURGERY Last Documented On 9 2:51PM By Corrine Powell ; [facility] Acetaminophen 500 MG Oral Tablet 08/17/2019 - 09/16/2019 Provider: Mason Gracia MD Diagnosis: 2 three times a day DO NOT FILL TILL 08/17/2019 FOR SURGERY Last Documented On 9 2:50PM By Corrine Powell ; [facility] oxyCODONE HCl 5 MG Oral Tablet 08/17/2019 - 08/22/2019 Provider: Ashu banerjee MD Diagnosis: 1-2 po q6h prn pain Last Documented On 9 2:47PM By Corrine Powell ; [facility] Neurontin 300 MG Oral Capsule 08/17/2019 - 11/15/2019 Provider: Mason hunter MD Diagnosis: 1 every bedtime DO NOT FIDENCIO L TILL 08/17/2019 FOR SURGERY Last Documented On 9 2:51PM By Corrine Powell ; [facility] Colace 100 MG Oral Capsule 08/17/2019 - 11/15/2019 Provider: Mason huntre MD Diagnosis: 1-2 tabs daily DO NOT FILL TILL 08/17/2019 FOR SURGERY Last Documented On 9 2:50PM By Corrine Powell ; [facility] Keflex 500 MG Oral Capsule 08/17/2019 - 08/20/2019 Provider: Mason hunter MD Diagnosis: 1 every 6 hours DO NOT FIDENCIO L TILL 08/17/2019 FOR SURGERY Last Documented On 9 2:51PM By Corrine Powell ; [facility] Dilaudid 2 MG Oral Tablet 08/15/2019 - 08/17/2019 Provider: Mason hunter MD Diagnosis: 1-2 po q6h prn pain (RESCUE PAIN) DO NOT FILL TILL 08/17/2019 FOR SURGERY Last Documented On 9 12:40PM By Corrine Powell ; [facility] Mupirocin 2% External Ointment 08/14/2019 - 08/19/2019 Provider: Mason hunter MD Diagnosis: three times a day Apply to n ostrils 3 time a day 5 days prior to surgery. Last Documented On 9 2:11PM By Johnna Hamilton ; [facility] Meloxicam 15 MG Oral Tablet 07/04/2019 - 04/24/2024 Pr ovider: TONY ROA MD Diagnosis: Last Documented On 4 2:14PM By Mona Ken ; [facility] Lisinopril 40 MG Oral Tablet 01/06/2019 - 09/03/2021 P tannerder: TONY ROA MD Diagnosis: Last Documented On 10:53AM By Keri Zhao ; [facility] Divalproex Sodium 500 MG Ora l Tablet Delayed Release 12/07/2018 - 09/03/2021 Provider: TONY Luu MD Diagnosis: Last Documented On 1 10:53AM By Keri Zhao ; [facility] amLODIPine Besylate 2.5 MG Oral Tablet 11/22/2018 - Provider: Diagnosis: Last Documented On 10:53AM By Keri Zhao ; [facility] Medications Administered Includes: Administered Medications in patient's chart No Administered Medications Recorded Vital Signs Includes: Vital Signs from 07/02/2024 through 07/02/2025 Vital Name 06/17/2025 02:49P 12/05/2024 03:33P 10/16 04:02P Height (in) 71 70 70 Weight (lb) 248 245 245 Body Mass Index 34.6 35.2 35.2 Body Surface Area 2.3 2.3 2.3 Pain Level 5 5 6 Last Documented: On 06/17/2025 2:49PM ; [facility] On 12/05/2024 3:34PM ; [facility] On 10/16/2024 4:02PM ; [facility] Results Includes: Results from 07/02/2024 through 07/02/2025 No Results Recorded For Specified Dates History of Present Illness History of Present Illness not supported for this document type No History of Present Illness Recorded Social History Description Last Updated Drug use marijuana 06/17/2025 Last Documented On 5 11:41AM ; [facility] Not exercising regularly 06/17/2025 Last Documented On 5 11:41AM ; [facility] Tobacco non-user 07/01/2022 Last Documented On 2 10:31AM ; [facility] No recent change in diet 09/03/2021 Last Documented On 2 10:16PM ; [facility] Not a current smoker. 09/03/2021 Last Documented On 2 10:16PM ; [facility] Non-smoker 04/16/2021 Last Documented On 1 3:00PM ; [facility] No tobacco use 07/06/2019 Last Documented On 9 2:49PM ; [facility] Smoking status : Never smoker 07/06/2019 Last Documented On 9 2:49PM ; [facility] Alcohol use 07/06/2019 Last Documented On 9 2:49PM ; [facility] Caffeine use 07/06/2019 Last Documented On 9 2:49PM ; [facility] No recent change in diet 07/06/2019 Last Documented On 9 2:49PM ; [facility] Not a current smoker 07/06/2019 Last Documented On 9 2:49PM ; [facility] Procedures and Surgical History Includes: Procedures from 07/02/2024 through 07/02/2025 Procedures Code Diagnosis Performing Provider Service Location Service Date MRI LUMBAR SPINE W/O DYE 76461 Other low back pain Alfonso Macias MD [facility] [place] 06/25/2025 Last Documented On 5 9:52AM ; [facility] X-RAY EXAM OF TRUNK SPINE [id number] Other intervertebral disc degeneration, lumbar region Tonio Quinonez PA-C [facility] 06/17/2025 Last Documented On 5 1:22PM ; [facility] Triamcinolone/Kenalog, 10mg per cc [id number] Cervical disc disorder at C6-C7 level with radiculopathy Allan Melton [facility] 12/26/2024 Last Documented On 5 1:02PM ; [facility] Cervical/Thoracic epidural injection [id number] Cervical disc disorder at C6-C7 level with radiculopathy Allan Melton [facility] 12/26/2024 Last Documented On 5 1:02PM ; [facility] X-RAY EXAM OF NECK SPINE 2 VIEWS [id number] Cervical disc disorder at C6-C7 level with radiculopathy Tonio Quinonez PA-C [facility] 10/16/2024 Last Documented On 5 3:49PM ; [facility] Surgical History Last Updated History of History of Arthroscopy 2024 Last Documented On 5 11:41AM ; [facility] History of Previous Fractures 06/17/2025 Last Documented On 5 11:41AM ; [facility] History of back surgery 09/03/2021 Last Documented On 2 10:16PM ; [facility] History of heart surgery 09/03/2021 Last Documented On 2 10:16PM ; [facility] History of total knee arthroplasty 07/06 Last Documented On 9 2:49PM ; [facility] Medical History Includes: Medical History in patient's chart Description Last Updated History of Fractures 06/17/2025 Last Documented On 5 11:41AM ; [facility] History of diabetes mellitus A1C 5.5% 05/04/2024 Last Documented On 4 10:52AM ; [facility] History of arthritis 09/03/2021 Last Documented On 2 10:16PM ; [facility] History of Heartburn / Acid Reflux 09/03 Last Documented On 2 10:16PM ; [facility] History of Hypertension 09/03/2021 Last Documented On 2 10:16PM ; [facility] History of Sleep Apnea 09/03/2021 Last Documented On 2 10:16PM ; [facility] Use of CPAP 09/03/2021 Last Documented On 2 10:16PM ; [facility] No recent immunization for pneumococcal pneumonia 08/05/2021 Last Documented On 1 3:34PM ; [facility] Recent immunization for flu 08/05/2021 Last Documented On 1 3:34PM ; [facility] stints, gastric bypass, seizure disorder , heartburn/acid reflux 07/06/2019 Last Documented On 9 2:49PM ; [facility] Arthritic joint problems 07/06/2019 Last Documented On 9 2:49PM ; [facility] History of heart disease 07/06/2019 Last Documented On 9 2:49PM ; [facility] Intermittent hypertension 07/06/2019 Last Documented On 9 2:49PM ; [facility] Family History Includes: Family History in patient's chart Description Last Updated Diabetes mellitus 09/03/2021 Last Documented On 2 10:16PM ; [facility] Stroke / Seizures 09/03/2021 Last Documented On 2 10:16PM ; [facility] stroke/seizures 07/06/2019 Last Documented On 9 2:49PM ; [facility] Family history of heart disease 07/06/20 19 Last Documented On 9 2:49PM ; [facility] Family history of hypertension 9 Last Documented On 9 2:49PM ; [facility] Family history of osteoporosis 9 Last Documented On 9 2:49PM ; [facility] Review of Systems Review of Systems not supported for this document type No Review of Systems Recorded Mental Status No Mental Status Recorded Functional Status No Functional Status Recorded Physical Exam Physical Exam not supported for this document type No Physical Exam Recorded Immunizations Includes: Immunizations in patient's chart Vaccine Dose # Date Site Reaction(s) Status Source Influenza 1 06/17/2020 Complete (Reported) Patient Last Documented On 11:40AM ; [facility] Allergies Includes: Active, inactive, and resolved Allergies No Known Allergies Encounters Includes: Encounters from 07/02/2024 through 07/02/2025 Encounter Provider Location Date Check-In Time Check-Out Time Diagnosis MRI [facility] 06/25/20 2:56PM 4:29PM Follow Up Tonio Quinonez PA-C [facility] 06/17/20 2:29PM 2:55PM Overweight Epidural Steroid Injection Allan Melton CRNA 12/27/1912/05/2024 3:44PM 12/05/2024 11:59PM Epidural Steroid Injection Allan Melton [facility] 12/27/19 1:11PM 1:41PM Follow Up Tonio Quinonez PA-C [facility] 12/06/19 2:41PM 3:14PM Overweight Follow Up Tonio Quinonez PA-C [facility] 10/16/19 3:17PM 4:10PM Overweight Insurance Includes: Active Insurance Policies Plan Name Member ID Group # Subscriber Relationship Effect karen Dates 1 - [employer] [id number] Dani Haasprince [facility] Clinical Notes Includes: Signed Clinical Notes starting from 09/16/2022 * Progress note Date Encounter Last Documented by 06/17/2025 Follow Up Last documented on 06/18/2025; 11:41 AM, Tonio Freeman; [facility] Active Problems & Conditions - Foot [...] had his spinal cord stimulator rep from [facility] interrogate the stimulator today felt like it [...] Care Team - TONY ROA MD - ATTENDING PHYSICIAN * Progress note Date Encounter Last Documented by 12/05/2024 Follow Up Last documented on 12/19/2024; 12:58 PM, [facility] Active Problems & Conditions - Foot Pain [...] Care Team - TONY ROA MD - ATTENDING PHYSICIAN * Progress note Date Encounter Last Documented by 10/16/2024 Follow Up Last documented on 10/17/2024; 11:40 AM, Tonio Freeman; [facility] Active Problems & Conditions - Foot [...] - Review of medications documented Patient is here today with complaints of neck and left arm pain that radiates down the back of the left arm that has been going on for the last 6 weeks it is worse when he tries to drive back in 2022 we did try an epidural injection which did help him. Has not had any physical therapy with this. He denies any balance issues or any bowel or bladder issues with this. Current Medication - amLODIPine Besylate 2.5 MG [...] as directed 0 days, 0 refills - Gabapentin 100 MG [...] MG Oral Tablet 30 days, 0 refills Past Medical/Surgical History [...] hypertension Osteoporosis Physical Findings - Vitals taken 10/16/2024 04:02 pm Height 70 in Weight 245 lbs Body Mass Index 35.2 kg/m2 Body Surface Area 2.3 m2 Pain Level 6 Cervical motion was limited with right rotation 5/5 biceps triceps deltoids wrist extension and flexion strength No long tract findings Tests Cervical x-rays two views show degenerative changes C5-C6 C6-C7 10/16/2024 Assessment - Overweight Cervical DDD C6-C7 radiculopathy left Previous Tests Available previous imaging studies were reviewed Available previous history reviewed Counseling/Education - Tobacco non-user - Use of tobacco assessment performed - Lose weight Plan StartCited - Cervicalgia Radiology/MRI: MRI Cervical Spine EndCited - Patient screened for future [...] Tonio Quinonez PA-C. Patient will follow up cervical spine MRI we will also order some physical therapy for him. Notes This dictation was done with voice recognition software and may contain errors and omissions. Care Team - TONY ROA MD - ATTENDING PHYSICIAN
--- OUTSIDE RECORDS SUMMARY | 2025-07-02 07:56 | XMS_ITS | Encounter Summary ---
Author Organization [facility] ([facility]3] Address [address] [place] [address] Care Team Providers Care Supervisor Research Kennel Name Role Phone Unavailable Primary Care Provider Unavailabl e Reason for Visit * Reason Onset Date Comments Scheduling 05/08/2025 Encounter Details Date Type Department Care Team (Late st Contact Info) Description 05/08/2025 Telephone [facility]3] Physicians - Ear, Nose & Throat, [address] Medical Office [address] [place] [id number] Meghna Solis, RN Scheduling Social History Tobacco [...] email since he does not have a NOW! [employer] setup his [employer]packet and this is scanned into media. Scheduled with Dr. Day for 05/14 at [address]. * Telephone Encounter - Meghna Solis RN - 05/08/2025 2:16 PM EDT Received a referral packet from [facility]. I have started registration process with paperwork provided and I left a Vm for the patient to call me at [phone]. BMI at time of last appointment was 35.72. AHI scored at 4 % 38.3.Central apnea 0.2 for an index. documented in this encounter Plan of Treatment Upcoming Encounters Date Type Department Care Team (Latest Contact Info) Description 07/03/2025 11:10 AM EDT Hospital Encounter Periop B-Level [address] [place] [address] Shaan Day MD [address] [place] [address] 07/03/2025 11:10 AM EDT - 07/03/2025 12:25 PM EDT Surgery Periop B-Level [address] [place] [address] Shaan Day MD [address] [place] [address] Insertion of hypoglossal nerve stimulator 07/09/2025 8:30 AM EDT Appointment [facility]3] Physicians - Ear, Nose & Throat, [place] [address] [facility] [address] [facility] [address] [place] [address] Shaan Day MD [address] [place] [address] Scheduled Procedures Name Priority Associated Diagnoses Date/Ti me IMPLANT HYPOGLOSSAL NERVE STIMULATOR SYSTEM 5 Obstructive sleep apnea 07/03/2025 11:10 AM EDT documented as of this encounter Visit Diagnoses Not on filedocumented in this encounter
--- OUTSIDE RECORDS SUMMARY | 2025-07-02 07:56 | XMS_ITS | Clinical Summary ---
[facility] Address [address] [place] [address] Care Team Providers Care Blunger Name Role Phone Mamadou Ross MD Primary Care Provider [phone] Allergies No known active allergies Medications oxyCODONE-acetam [...] 09/03/2022 ZOSTER VACCINE Completed 03/25/2023, 08/02/2022 Insurance [employer] Care Teams Blunger Relationship Specialty Start Date End Date Mamadou Ross MD [address] [facility] [address] [place] [address] PCP - General General Surgery 04/16/16
--- NOTE | 2025-07-02 08:00 | CA_ITS ---
APPROVED REPORT EXAM: Limited 2D and color flow Echocardiogram Ux Engineer: Janeth Payton RVT Ht: 5 ft 10 in Wt: 243lbs BSA: 2.27 BP: 138/86 mmHg Indications: REEVALUATE TRICUSPID VALUE-REDUNDANCY AND ELONGATION OF LEAFLETS SEEN ON LAST TTE 2D Dimensions IVSd 1.03 cm M: 0.6-1.2 LVEF (Visual) 64.60 % PWd 1.01 cm M: 0.6 - 1.2 LVDd 6.06 cm M: 4.2 - 5.9 LVDs 3.88 cm M: 2.5 - 4.0 Other Information Study Quality: Fair Conclusion This is a limited TTE to evaluate for RV dimensions and the tricuspid valve anatomy and mobility. Limited windows are obtained. The right ventricle is mildly dilated. There is normal RV function. The tricuspid valve leaflets are redundant and elongated. No evidence of flail segments or cordal ruptures. Mild TR is present. RVSP is normal. Compared to prior study from 04/24/2025, the tricuspid valve anatomy is unchanged. Electronically signed by : Arely Patton MD 07/02/2025 13:14:32
== END 2025-07-02 23:59 | disposition home or self-care (01) ==
LOC: RT 07:53
PROVIDERS: PCP Internal Medicine Adolescent Medicine; Visit Provider Physician Assistant
DX: I07.1 Rheumatic tricuspid insufficiency (principal); I07.8 Other rheumatic tricuspid valve diseases; I42.9 Cardiomyopathy, unspecified; I25.10 Atherosclerotic heart disease of native coronary artery without angina pectoris
CPT/HCPCS: 93308